=== PATIENT | female | born 1945 | race Caucasian/White ===

== ENCOUNTER 2022-01-04 08:02 | Emergency (ER) | payer MEDICARE, OTHER, SELFPAY ==
[2022-01-04 08:56] VITALS: BP 169/71; PULSE 72; RESP 18; TEMP 36.4; O2SAT 98; BMI 25.2
--- NOTE | 2022-01-04 09:06 | ED_ITS ---
HPI - Dizziness General Chief Complaint: Dizziness/Vertigo Stated Complaint: Dizziness Time Seen by Provider: 01/04/22 08:13 History of Present Illness HPI Narrative: This 76-year-old female woke this morning and rolled over in her bed and had sudden onset of vertigo symptoms. She had nausea with 1 episode of vomiting and subsequently felt sweaty. Since then her symptoms have improved significantly. She did not have any altered speech or unilateral weakness. She does not report a headache or hearing ch Related Data Home Medications Medication Instructions Recorded Confirmed amlodipine 2.5 mg tablet mg 01/04/22 famotidine 20 mg tablet mg 01/04/22 latanoprost 0.005 % eye drops drp 01/04/22 levothyroxine 100 mcg capsule 100 mcg PO DAILY 01/04/22 01/04/22 levothyroxine 88 mcg capsule 88 mcg PO .3 days a week 01/04/22 01/04/22 [id number] cap PO 01/04/22 36,000-114,000-180,000 unit capsule,delay rel (Creon) losartan 50 mg tablet mg 01/04/22 triamterene 37.5 cap 01/04/22 mg-hydrochlorothiazide 25 mg capsule Previous Rx's Medication Instructions Recorded meclizine 25 mg tablet 25 mg PO QID #20 tabs 01/04/22 ondansetron HCl 4 mg tablet 4 mg PO Q6H #20 tabs 01/04/22 Allergies Allergy/AdvReac Type Severity Reaction Status Date / Time Sulfa (Sulfonamide Allergy Verified 01/04/22 08:27 Antibiotics) Review of Systems Status of ROS: Reports: 10 or more systems reviewed and unremarkable except as noted in History and below Narrative: Constitutional: No fevers, no weight gain or loss. Eyes: No discharge. No vision changes. HENT: No congestion, no sore throat, no ear pain. Cardiovascular: No chest pain, no palpitations. Respiratory: No shortness of breath, no wheezes, no cough. Gastrointestinal: No abdominal pain, no diarrhea. Nausea with 1 episode of vomiting. Genitourinary: No dysuria, no hematuria. Musculoskeletal: Normal range of motion. Skin: No rashes, no pruritis. Neurological: No weakness, sensory change, speech change. Vertigo symptoms as described above. Endo/Heme/Allergies: No bruising or bleeding. No polydipsia. Pysch: no suicidality, no anxiety, no insomnia. All other systems reviewed and are negative. PFSH [facility] Social History Smoking Status: Never smoker How often do you have a drink containing alcohol: monthly or less AUDIT-C Alcohol total score: 1 Non-prescribed substance use: denies use Exam Narrative: Exam Narrative: Constitutional: Well-developed, well-nourished, no acute distress. HEENT: Normocephalic, atraumatic. Neck: Normal range of motion. Nontender. Supple. Heart: Regular. No murmurs. Normal rate. Intact distal pulses. Lungs: Clear to auscultation. No chest discomfort. No wheezes, rhonchi, or rales. Abdomen: Normal bowel sounds. Nontender. No rebound tenderness. Genitalia: Deferred. Back: No midline tenderness. Normal range of motion. Extremities: Normal range of motion. No injury. Skin: Intact. No rash. Warm. No erythema or pallor. Neurologic: No weakness. Alert and oriented. No facial asymmetry. Speech is normal. [id number] is normal. No pronator drift. Etl [employer] strength is equal bilaterally. Heel to fine is normal. No altered sensation. Psychiatric: No suicidality. No anxiety or depression. No insomnia. Nursing notes and vitals signs are reviewed. Const: Vital Signs, click to edit/add: Vital Signs - 24 hr 01/04/22 08:56 Temperature 97.5 F L Pulse Rate [Right Pulse Oximeter] 72 Respiratory Rate 18 Blood Pressure [Ri ght Upper Arm] 169/71 H Pulse Oximetry 98 Oxygen Delivery Me thod Room Air Course Vital Signs Vital signs: Initial Vital Signs Temperature 97.5 F L 01/04/22 08:56 Temperature Source Temporal Artery Scan 01/04/22 08:56 Pulse Rate 72 01/04/22 08:56 Respiratory Rate 18 01/04/22 08:56 Blood Pressure 169/71 H 01/04/22 08:56 Blood Pressure Mean 103 01/04/22 08:56 Blood Pressure Position Sitting 01/04/22 08:56 Pulse Oximetry 98 01/04/22 08:56 Oxygen Delivery Method 01/04/22 08:56 Vital Signs Temperature 97.5 F L 01/04/22 08:56 Pulse Rate 72 01/04/22 08:56 Respiratory Rate 18 01/04/22 08:56 Blood Pressure 169/71 H 01/04/22 08:56 Pulse Oximetry 98 01/04/22 08:56 Oxygen Delivery Method 01/04/22 08:56 Temperature 97.5 F L 01/04/22 08:56 Pulse Rate 72 01/04/22 08:56 Respiratory Rate 18 01/04/22 08:56 Blood Pressure 169/71 H 01/04/22 08:56 Pulse Oximetry 98 01/04/22 08:56 Oxygen Delivery Method 01/04/22 08:56 MDM - Dizziness MDM Narrative Medical decision making narrative: This patient comes in with rather sudden onset of vertigo symptoms upon awakening this morning. These symptoms have completely resolved when remaining still. Even when turning her head her moving at this time she has minimal symptoms. She is not showing any sign of neurologic deficit. Her neurologic exam is completely normal. This is much more likely to be peripheral vertigo rather than a central process. I did describe lab and imaging studies and in a process of shared decision making these were declined given her resolution of symptoms. The patient did receive an oral dose of Zofran and meclizine. She is okay to return home. Prescription for these medicines is provided for her to be used as needed and directed. Discharge Plan Discharge Clinical Impression: Acute vestibular neuronitis Patient Disposition: Home, Self-Care Condition: Improved Instructions: Vertigo (ED) Additional Instructions: Activity as tolerated. Use medications as needed and directed. Follow up with MD or return if worsening. Prescriptions: New ondansetron HCl 4 mg tablet 4 mg PO Q6H Qty: 20 0RF meclizine 25 mg tablet 25 mg PO QID Qty: 20 0RF No Action losartan 50 mg tablet latanoprost 0.005 % drops amlodipine 2.5 mg tablet triamterene-hydrochlorothiazid 37.5-25 mg capsule famotidine 20 mg tablet Creon 36,000-114,000- 180,000 unit capsule,delayed release(DR/EC) PO levothyroxine 88 mcg capsule 88 mcg PO .3 days a week levothyroxine 100 mcg capsule 100 mcg PO DAILY Follow Up/Referrals: Jone Calvert MD [Primary Care Provider] - Stand Alone [email or web address] Inst[facility]
[2022-01-04] MEDS: MECLIZINE HCL 25 MG TABLET PO (09:15)
[2022-01-04] MEDS: ONDANSETRON ODT 4 MG TAB PO (09:31)
[2022-01-04 09:43] VITALS: BP 144/63; PULSE 64; RESP 14; TEMP 36.4
[2022-01-04 09:55] VITALS: BP 144/63; PULSE 64; RESP 14; O2SAT 98
== END 2022-01-04 09:54 | disposition home or self-care (01) ==
PROVIDERS: Emergency Provider Emergency Medicine Emergency Medical Services; PCP Family Medicine
DX: H81.20 Vestibular neuronitis, unspecified ear (principal)
CPT/HCPCS: 99283; 99284; A9270

== ENCOUNTER 2023-01-13 21:29 | Emergency (ER) | payer MEDICARE, OTHER, SELFPAY ==
[2023-01-13 21:37] VITALS: BP 135/74; PULSE 62; RESP 18; TEMP 36.3; O2SAT 97
--- NOTE | 2023-01-13 22:06 | ED.NURSE ---
[employer] cleaning wound
[2023-01-13 23:26] VITALS: BP 125/74; PULSE 70; RESP 18; TEMP 36.9; O2SAT 97
[2023-01-13 23:49] VITALS: BP 125/74; PULSE 70; RESP 18; TEMP 36.9
--- NOTE | 2023-02-02 11:16 | ED.GENADULT ---
HPI - General Adult General Chief complaint: Animal Bite Stated complaint: cat bite Time Seen by Provider: 01/13/23 22:44 History of Present Illness HPI narrative: pt was cleaning cat. cat had stepped on a sticky mouse trap. cat is a house cat, 6 months old. cat is current on shots. Pt was bit on wrist while cleaning the cat. 77-year-old woman presenting to the emergency depart along with her spouse also sustained injury by kitten. Trying to extricate and clean this cat who is fully vaccinated, from a sticky mouse trap when it bit her left forearm wrist area. Is not complaining of significant pain. Related Data Home Medications Medication Instructions Recorded Confirmed amlodipine 2.5 mg tablet 2.5 mg PO DAILY 01/04/22 01/14/23 famotidine 20 mg tablet 20 mg PO BID 01/04/22 01/14/23 latanoprost 0.005 % eye drops 1 drp ophthalmic (eye) DAILY 01/04/22 01/14/23 levothyroxine 100 mcg capsule 100 mcg PO DAILY 01/04/22 01/14/23 onpbua-xqhyttwd-ltktydj 2 cap PO TID 01/04/22 01/14/23 36,000-114,000-180,000 unit capsule,delay rel (Creon) losartan 50 mg tablet 50 mg PO BID 01/04/22 01/14/23 triamterene 37.5 1 cap PO DAILY 01/04/22 01/14/23 mg-hydrochlorothiazide 25 mg capsule atorvastatin 20 mg tablet 20 mg PO DAILY 01/14/23 01/14/23 levothyroxine 88 mcg tablet 88 mcg PO 3XW 01/14/23 01/14/23 omeprazole 20 mg capsule,delayed 20 mg PO DAILY 01/14/23 01/14/23 release Previous Rx's Medication Instructions Recorded meclizine 25 mg tablet 25 mg PO QID #20 tabs 01/04/22 amoxicillin 875 mg-potassium 1 tab PO BID 9 days #18 tabs 01/13/23 clavulanate 125 mg tablet Allergies Allergy/AdvReac Type Severity Reaction Status Date / Time Sulfa (Sulfonamide Allergy Mild Hives Verified 01/14/23 06:41 Antibiotics) Review of Systems Status of ROS: Reports: 6 or more systems reviewed and unremarkable except as noted in History and below PFSH PFSH Social History Smoking Status: Never smoker Second hand tobacco smoke exposure: No How often do you have a drink containing alcohol: monthly or less AUDIT-C Alcohol total score: 1 Non-prescribed substance use: denies use Exam Narrative: Exam Narrative: Pleasant. NAD. Mildly anxious. Moving extremities without difficulty. Well-perfused. Examination of the left forearm shows a few bites limited to the left forearm and just proximal to the wrist on the dorsal lateral aspect. No active bleeding. No repair necessary. No marked swelling to suggest hematoma or other. Const: Documenting provider has reviewed patient's vital signs: yes Course Vital Signs Vital signs: Initial Vital Signs Temperature 97.3 F L 01/13/23 21:37 Temperature Source Temporal Artery Scan 01/13/23 21:37 Pulse Rate 62 01/13/23 21:37 Pulse Rhythm Regular 01/13/23 21:37 Respiratory Rate 18 01/13/23 21:37 Blood Pressure 135/74 01/13/23 21:37 Blood Pressure Mean 94 01/13/23 21:37 Blood Pressure Position Sitting 01/13/23 21:37 Pulse Oximetry 97 01/13/23 21:37 Oxygen Delivery Method Room Air 01/13/23 21:37 Vital Signs Temperature 97.3 F L 01/13/23 21:37 Pulse Rate 62 01/13/23 21:37 Respiratory Rate 18 01/13/23 21:37 Blood Pressure 135/74 01/13/23 21:37 Pulse Oximetry 97 01/13/23 21:37 Oxygen Delivery Method Room Air 01/13/23 21:37 Temperature 98.5 F 01/13/23 23:49 Pulse Rate 70 01/13/23 23:49 Respiratory Rate 18 01/13/23 23:49 Blood Pressure 125/74 01/13/23 23:49 Pulse Oximetry 97 01/13/23 23:26 Oxygen Delivery Method Room Air 01/13/23 23:26 Medical Decision Making MDM Narrative Medical decision making narrative: I think with careful monitoring would not necessarily need an antibiotic here. I would expect to be a little bit red over the next couple of days but if seems to be worsening beyond that might need intervention. kaden and Genie are up-to-date on immunizations. Discussed options in treatment. See patient discharge plan Discharge Plan Discharge Clinical Impression: Hematoma, Cat bite Patient Disposition: Home, Self-Care Condition: Stable Additional Instructions: Can continued ice for comfort. Elevate for comfort. Ibuprofen or acetaminophen. Watch for spreading redness after 2 days, marked increase in swelling/redness/heat/pain, purulent drainage as indication to initiate antibiotic. Prescriptions: New amoxicillin-pot clavulanate 875-125 mg tablet 1 tab PO BID 9 Days Qty: 18 0RF No Action losartan 50 mg tablet 50 mg PO BID latanoprost 0.005 % drops 1 drp ophthalmic (eye) DAILY amlodipine 2.5 mg tablet 2.5 mg PO DAILY triamterene-hydrochlorothiazid 37.5-25 mg capsule 1 cap PO DAILY famotidine 20 mg tablet 20 mg PO BID Creon 36,000-114,000- 180,000 unit capsule,delayed release(DR/EC) 2 cap PO TID levothyroxine 100 mcg capsule 100 mcg PO DAILY meclizine 25 mg tablet 25 mg PO QID Qty: 20 0RF atorvastatin 20 mg tablet 20 mg PO DAILY levothyroxine 88 mcg tablet 88 mcg PO 3XW omeprazole 20 mg capsule,delayed release(DR/EC) 20 mg PO DAILY Follow Up/Referrals: Jone Calvert MD [Primary Care Provider] - Stand Alone Forms: [employer] Info Instructions
== END 2023-01-13 23:50 | disposition home or self-care (01) ==
PROVIDERS: Emergency Provider Family Medicine; PCP Family Medicine
DX: S61.451A Open bite of right hand, initial encounter (principal); W55.01XA Bitten by cat, initial encounter
CPT/HCPCS: 90471; 99283; 99284

== ENCOUNTER 2023-01-14 06:29 | Emergency (ER) | payer MEDICARE, OTHER, SELFPAY ==
[2023-01-14 06:35] VITALS: BP 155/72; PULSE 67; RESP 18; TEMP 36.8; O2SAT 99; BMI 26.5
--- NOTE | 2023-01-14 06:35 | ED_ITS ---
HPI - Animal Bite General Time Seen by Provider: 06:35 Date Seen: 01/14/23 Chief Complaint: Animal Bite Stated Complaint: PT back, LT wrist swelling frm cat bite Time Seen by Provider: 01/14/23 06:35 Source: patient Mode of arrival: ambulatory Limitations: no limitations History of Present Illness HPI narrative: 77-year-old female who was seen yesterday after being bit by a cat returns today with redness at the site of the bite. She also feels like her hand is more achy. She was not started on antibiotics yesterday but was given a prescription to fill if she developed worsening symptoms. Related Data Home Medications Medication Instructions Recorded Confirmed amlodipine 2.5 mg tablet 2.5 mg PO DAILY 01/04/22 01/14/23 famotidine 20 mg tablet 20 mg PO BID 01/04/22 01/14/23 latanoprost 0.005 % eye drops 1 drp ophthalmic (eye) DAILY 01/04/22 01/14/23 levothyroxine 100 mcg capsule 100 mcg PO DAILY 01/04/22 01/14/23 [id number] 2 cap PO TID 01/04/22 01/14/23 36,000-114,000-180,000 unit capsule,delay rel (Creon) losartan 50 mg tablet 50 mg PO BID 01/04/22 01/14/23 triamterene 37.5 1 cap PO DAILY 01/04/22 01/14/23 mg-hydrochlorothiazide 25 mg capsule atorvastatin 20 mg tablet 20 mg PO DAILY 01/14/23 01/14/23 levothyroxine 88 mcg tablet 88 mcg PO 3XW 01/14/23 01/14/23 omeprazole 20 mg capsule,delayed 20 mg PO DAILY 01/14/23 01/14/23 release Previous Rx's Medication Instructions Recorded meclizine 25 mg tablet 25 mg PO QID #20 tabs 01/04/22 amoxicillin 875 mg-potassium 1 tab PO BID 9 days #18 tabs 01/13/23 clavulanate 125 mg tablet Allergies Allergy/AdvReac Type Severity Reaction Status Date / Time Sulfa (Sulfonamide Allergy Mild Hives Verified 01/14/23 06:41 Antibiotics) Review of Systems Status of ROS: Reports: 10 or more systems reviewed and unremarkable except as noted in History and below PFSH PFSH Social History Smoking Status: Never smoker How often do you have a drink containing alcohol: monthly or less AUDIT-C Alcohol total score: 1 Non-prescribed substance use: denies use Exam Narrative: Exam Narrative: General: well nourished , NAD Head: Atraumatic and normocephalic ENT: External ears and external nose are normal Eyes: Conjunctiva clear, pupils are equal reactive, external ocular motions are intact Neck: Full spontaneous range of motion of the neck Lungs: No respiratory distress Musculoskeletal: No tenderness or deformity, no joint effusion, no pain with passive movement of the wrist, no warmth or redness the rest. Just proximal to the wrist joint overlying the distal radius on the extensor surface of the f orearm and wrist there is a 2 cm area of erythema and induration Neurologic: No gross focal neurologic deficits Skin: No rashes Psych: Mood and affect are appropriate Const: Vital Signs, click to edit/add: Vital Signs - 24 hr 01/14/23 06:35 Temperature 98.2 F Pulse Rate [Right Pulse Oximeter] 67 Respiratory Rate 18 Blood Pressure [Ri ght Upper Arm] 155/72 H Pulse Oximetry 99 Oxygen Delivery Me thod Room Air Course Course Hospital Course: Patient seen and examined, prior records are reviewed. Patient presents today with redness and swelling at the site of the cat bite from last night. On exam, no joint effusion, no warmth redness of the joint or pain with passive movements to suggest septic arthritis. There is localized swelling and tenderness on the dorsum of the wrist around the bite, suspect this may be hematoma as patient says there was marked swelling just lateral to this last night, cannot exclude early cellulitis. Augmentin is started and patient is stable for discharge. Vital Signs Vital signs: Initial Vital Signs Temperature 98.2 F 01/14/23 06:35 Temperature Source Temporal Artery Scan 01/14/23 06:35 Pulse Rate 67 01/14/23 06:35 Respiratory Rate 18 01/14/23 06:35 Blood Pressure 155/72 H 01/14/23 06:35 Blood Pressure Mean 99 01/14/23 06:35 Blood Pressure Position Sitting 01/14/23 06:35 Pulse Oximetry 99 01/14/23 06:35 Oxygen Delivery Method Room Air 01/14/23 06:35 Vital Signs Temperature 98.2 F 01/14/23 06:35 Pulse Rate 67 01/14/23 06:35 Respiratory Rate 18 01/14/23 06:35 Blood Pressure 155/72 H 01/14/23 06:35 Pulse Oximetry 99 01/14/23 06:35 Oxygen Delivery Method Room Air 01/14/23 06:35 Temperature 98.2 F 01/14/23 06:35 Pulse Rate 67 01/14/23 06:35 Respiratory Rate 18 01/14/23 06:35 Blood Pressure 155/72 H 01/14/23 06:35 Pulse Oximetry 99 01/14/23 06:35 Oxygen Delivery Method Room Air 01/14/23 06:35 Discharge Plan Discharge Clinical Impression: Hematoma, Cat bite Patient Disposition: Home, Self-Care Condition: Stable Instructions: Animal Bite (ED) Additional Instructions: Elevate and ice to help with pain and swelling. Shan wrap to help with swelling. Tylenol and ibuprofen as needed, take Augmentin as prescribed today. Activity Level: Activity as Tolerated Discharge Diet: Regular Prescriptions: No Action losartan 50 mg tablet 50 mg PO BID latanoprost 0.005 % drops 1 drp ophthalmic (eye) DAILY amlodipine 2.5 mg tablet 2.5 mg PO DAILY triamterene-hydrochlorothiazid 37.5-25 mg capsule 1 cap PO DAILY famotidine 20 mg tablet 20 mg PO BID Creon 36,000-114,000- 180,000 unit capsule,delayed release(DR/EC) 2 cap PO TID levothyroxine 100 mcg capsule 100 mcg PO DAILY meclizine 25 mg tablet 25 mg PO QID Qty: 20 0RF atorvastatin 20 mg tablet 20 mg PO DAILY levothyroxine 88 mcg tablet 88 mcg PO 3XW omeprazole 20 mg capsule,delayed release(DR/EC) 20 mg PO DAILY amoxicillin-pot clavulanate 875-125 mg tablet 1 tab PO BID 9 Days Qty: 18 0RF Follow Up/Referrals: Jone Calvert MD [Primary Care Provider] - Stand Alone Forms: [facility] Info Instructions
[2023-01-14 06:48] VITALS: PULSE 74
--- OUTSIDE RECORDS SUMMARY | 2023-01-14 06:54 | XMS_ITS | Continuity of Care Document ---
Author Name Unknown Organization [facility] Address [address] [address] [place] [address] Phone Care Team Providers Care Gate Tender Name Role Phone Cedrick Seaman MD Unavailable Unavailable Allergies, Adverse Reactions, Alerts Substance Reaction Status Criticality Sulfa (Sulfonamide Antibiotics) Hives Active No Information Medications Medication Instructions Dosage Effective Dates (start - stop) Status Comments Creon 36,000 unit-114,000 unit-180,000 unit capsule,delayed release take 2 capsule by oral route 3 times every day with meals swallowing whole. Do not crush, chew and/or divide. for Diarrhea 2 capsule - Active 90 day supply per pt's request Vitamin D3 125 mcg (5,000 unit) tablet take 1 Tablet by Oral route once 1 Tablet Feb- - Active Effer-K 20 mEq effervescent tablet take 1 tablet by oral route every day dissolved in 3-4 ounces of cold juice or ice water and then drink 20 MEQ Feb- - Active famotidine 20 mg tablet take 1 tablet by ORAL route 2 times every day 20 MG Feb- - Active amlodipine 2.5 mg tablet take 1 tablet by oral route every day 2.5 MG Feb- - Active vitamin E 200 unit capsule - Active Fish Oil 1,000 mg (120 mg-180 mg) capsule take 1 Capsule by Oral route once 1 Capsule Feb- - Active Probiotic 10 billion cell capsule take 1 Capsule by Oral route every day 1 Capsule - Active cranberry 400 mg capsule - Active zinc 50 mg tablet take 1 by oral route every day - Active ferrous sulfate 325 mg (65 mg iron) tablet,delayed release take 1 tablet by oral route every 2 days 1 tablet - Active Xifaxan 550 mg tablet take 1 tablet by oral route 3 times every day 550 MG - Active MSM 1,000 mg capsule take 1 by Oral route 2 times every day 1 - Active Metamucil 0.52 gram capsule take 5 Tablet by Oral route every day 5 Tablet - Active potassium chloride ER 20 mEq tablet,extended release(part/cryst) take 1 tablet (20MEQ) by oral route every day 20 MEQ - Active latanoprost 0.005 % Eye Drops instill 1 drop by ophthalmic route every day into affected eye(s) in the evening 1.00 drop - Active multivitamin tablet take 1 tablet by oral route every day with food - Active magnesium 200 mg tablet take 2 Tablet by Oral route 2 times every day 2 Tablet - Active Dyazide 37.5 mg-25 mg Cap take one tablet po qday. - Active Estrace 0.5 mg tablet take 1 tablet by oral route every day days 1-21 0.5 MG - Active Synthroid 100 mcg tablet take 1 tablet (100MCG) by oral route every day 100 MCG - Active losartan 100 mg tablet take 1 tablet (100MG) by oral route every day 100 MG - Active ascorbic acid 1,000 mg Tab Take one tablet by mouth daily - Active Procedures Procedure Date Colorectal Ca Screen Hi Risk I Offic/outpt E&m Estab Mod-hi 2 21 Telephone E&M III 21-30 Min MD ROSA Telephone E&M II 11-20 Min MD ROSA Telephone E&M II 11-20 Min MD ROSA Offic/outpt E&m Estab Low-mod 8 Ugi Endo; W/bx 1/mx Ugi Endo; W/endo Ultrasound Ex 18 Colonoscopy Flex; W/bx 1/mx Offic/outpt E&m Estab Mod-hi 2 18 Colorectal Ca Screen Hi Risk I 17 Offic/outpt E&m Estab Mod-hi 2 17 Offic/outpt E&m Estab Mod-hi 2 16 Offic/outpt E&m Estab Minor Offic/outpt E&m Estab Mod-hi 2 13 Ugi Endo; W/bx 1/mx Level Iv-surg Path Gross/micro 13 Offic/outpt E&m Estab Mod-hi 2 13 Colonoscopy Flex; Dx (jan Pro) 12 Offic/outpt E&m Estab Low-mod 2 Routine Serum Collection [id number] Lipase Offic/outpt E&m Estab Low-mod 1 Routine Serum Collection [id number] Offic/outpt E&m Estab Low-mod 0 [id number] Ugi Endo; W/endo Untrasound Ex 10 Offic/outpt E&m Estab Mod-hi 2 10 [id number] Ugi Endo; W/us Guid Asp/bx Offic/outpt E&m Estab Mod-hi 2 09 Ugi Endo; W/us Guid Asp/bx Offic Cons New/estab Mod 40 Mi 08 Routine Serum Collection [id number] Advance Directives Directive Yes / No Effective Date File Name No Information Encounters Encounter Description Practice Location Reason(s) For Visit Diagnoses Date Provider Providers Copied on Encounter [facility] [address] [address], [place], [id number], [place] tel:[phone] [facility] No Information 3 Urszula Philip. [address] [facility], [address], [id number], [place]. tel:[phone] [facility], [address] [address], [place], [address], [place] tel:[phone] [facility] Family history of pancreatic cancer 2 Urszula Philip. [address], [id number], [place]. tel:[phone] Jelani Peace MD. tel:[phone] [facility], [address] [address], [place], [id number], [place] tel:[phone] [facility] GI Symptoms or Concerns (chief complaint) Hemorrhoids, internalFamil y history of colon cancerDiverti culosis of colonHemorrho ids, internalEncou nter for screening for malignant neoplasm of colonFamily history of malignant neoplasm of digestive organs 2 Min MD Burgess. [address], [id number], [place]. tel:[phone] Jelani Peace MD. tel:[phone] erring Provider: Referral Self. [facility], [address] [address], [place], [id number], [place] tel:[phone] [facility] No Information 2 Yobani Nguyễn. [address], [id number], [place]. tel:[phone] [facility], [address] [address], [place], [id number], [place] tel:[phone] [facility] No Information 2 Urszula Philip. [address] [facility], [address], [id number], [place]. tel:[phone] Referring Provider: Referral Self. Offic/outpt E&m Estab Mod-hi 2 [facility], [address] [address], [place], [address], [place] tel:[phone] [facility] GI Symptoms or Concerns (chief complaint) Family history of pancreatic cancerDietary counseling and surveillanceE levated blood-pressur e reading, w/o diagnosis of htn 1 Urszula Philip. [address] [facility], [facility] [address], [place], [place], [address], [place]. tel:[phone] Jelani Peace MD. tel:[phone] erring Provider: Referral Self. [facility], [address] [address], [place], [address], [place] tel:[phone] [facility] No Information 1 Yobani Nguyễn. [address] [facility], [facility] [address], [place], [address], [place]. tel:[phone] [facility], [address] [address], [place], [address], [place] tel:[phone] [facility] Pancreatic abnormality 1 Yobani Nguyễn. [address] [facility], [facility] [address], [place], [place], [address], [place]. tel:[phone] Telephone E&M III 21-30 Min ROSA [facility], [address] [address], [place], [address], [place] tel:[phone] [facility] GI Symptoms or Concerns (chief complaint) Flatulence, eructation and gas painGas painEructatio n 0 Yobani Nguyễn. [address] [facility], [facility] [address], [place], [address], [place]. tel:[phone] Jelani Peace MD. tel:[phone] erring Provider: Gamaliel Sullivan MD, [address] [place], [address]. tel:[phone] Telephone E&M II 11-20 Min ROSA [facility], [address] [address], [place], [address], [place] tel:[phone] [facility] GI Symptoms or Concerns (chief complaint) Chronic diarrhea 0 Yobani Nguyễn. [address] [facility], [facility] [address], [place], [address], [place]. tel:[phone] Jelani Peace MD. [phone] erring Provider: Referral Self. Telephone E&M II 11-20 Min MD ROSA [facility], [address] [address], [place], [id number], [place] tel:[phone] [facility] GI Symptoms or Concerns (chief complaint) Pancreatic atrophyChroni c diarrheaIrrit able bowel syndrome with diarrhea 0 Yobani Nguyễn. [address] [facility], [address], [id number], [place]. [phone] Jelani Peace MD. tel:[phone] erring Provider: Referral Self. [facility], [address] [address], [place], [address], [place] tel:[phone] [facility] No Information 0 Bebeto Cuba. [address] [facility], [facility] [address], [place], [place], [address], [place]. tel:[phone] Offic/outpt E&m Estab Low-mod [facility], [address] [address], [place], [address], [place] tel:[phone] [facility] No Information 8 Urszula Philip. [address] [facility], [facility] [address], [place], [place], [address], [place]. tel:[phone] Referring Provider: Cedrick Seaman MD, [address] [facility] [address], [place], [address] . tel:[phone] [facility], [address] [address], [place], [address], [place] tel:[phone] [facility] No Information 8 Urszula Philip. [address] [facility], [facility] [address], [place], [place], [address], [place]. tel:[phone] Referring Provider: Cedrick Seaman MD, [address] [place] [address] [address], [place], [address] . tel:[phone] Offic/outpt E&m Estab Mod-hi 2 [facility], [address] [address], [place], [place], [address], [place] tel:[phone] [facility] No Information 8 Urszula Philip. [address] [place] [address], [facility] [address], [place], [place], [address], [place]. tel:[phone] Referring Provider: Cedrick Seaman MD, [address] [facility] [address], [place], [address] . tel:[phone] [facility], [address] [address], [place], [place], [address], [place] tel:[phone] [facility] Disease of pancreasDiarr hea, unspecified type 8 Urszula Philip. [address] [facility], [facility] [address], [place], [place], [address], [place]. tel:[phone] Jelani Peace MD. tel:[phone] [facility] [place], [address] [address], [place], [place], [address], [place] tel:[phone] [facility] Colon cancer screeningFami ly history of colon cancerDiverti culosis of colon without diverticuliti sPersonal history of colonic polypsEncount er for screening for malignant neoplasm of colonDvrtclos of lg int w/o perforation or abscess w/o bleedingFamil y history of malignant neoplasm of digestive organs 7 Mick Alston. [address] [facility], [facility] [address], [place], [place], [address], [place]. tel:[phone] Referring Provider: Jelani Peace MD D, [address], [place], [address]. tel:[phone] [facility], [address] [address], [place], [address], [place] tel:[phone] [facility] Pancreatic abnormality 7 Urszula Philip. [address] [facility], [facility] [address], [place], [place], [address], [place]. tel:[phone] Jelani Peace MD. tel:[phone] [facility], [address] [address], [place], [address], [place] tel:[phone] [facility] Pancreatic lesion Urszula Philip. [address] [place] [address], [id number], [place]. tel:[phone] Jelani Peace MD. tel:[phone] Offic/outpt E&m Estab Mod-hi 2 [facility], [address] [address], [place], [address], [place] tel:[phone] [facility] No Information Urszula Philip. [facility], [facility] [address], [place], [place], [address], [place]. tel:[phone] Referring Provider: Jelani Peace MD D, [address] [facility] [address], [place], [address]. tel:[phone] Offic/outpt E&m Estab Mod-hi 2 [facility], [address] [address], [place], [address], [place] tel:[phone] [facility] GI Symptoms or Concerns (chief complaint) Pancreatic atrophyDiarrh ea, unspecified typePersonal history of colonic polypsDietary counseling and surveillance 6 OMorsulemae YOUSIF Lisa. [facility]1 [facility], [facility] [address], [place], [address], [place]. tel:[phone] Jelani Peace MD. tel:[phone] erring Provider: Referral Self. [facility], [address] [address], [place], [id number], [place] tel:[phone] [facility] Abn X-ray GI Tract 5 [employer] RN TRAUMA Martha. [address] [place] [address], [address], [address], [place]. tel:[phone] Offic/outpt E&m Estab Minor [facility], [address] [address], [place], [address], [place] tel:[phone] [facility] Nausea AloneNausea AloneEpigastr ic Pain 4 [employer] RN TRAUMA Martha. [address] [place] [address], [place] [address], [place], [place], [address], [place]. tel:[phone] Referring Provider: Jelani Perdomo, [address], [facility]. tel:[phone] Offic/outpt E&m Estab Mod-hi 2 [facility], [address] [address], [place], [address], [place] tel:[phone] [facility] Nausea Alone 3 Lauren Villela. [address] [place] [address], [address], [address], [place]. tel:[phone] Referring Provider: Referral Self. [facility], [address] [address], [place], [id number], [place] tel:[phone] [facility] Polyp-intes/r ect/stom-unc BehGastric Polyp-benignG astric Polyp-benignE pigastric Pain 3 Michaelle Villela. [address] [place] [address], [place] [address], [place], [place], [address], [place]. tel:[phone] Referring Provider: Jelani Perdomo, [address] [facility] [address] [place], [address]. tel:[phone] Offic/outpt E&m Estab Mod-hi 2 [facility], [address] [address], [place], [address], [place] tel:[phone] [facility] Patient feels she has an ulcer due to previou (chief complaint) Epigastric PainNausea Alone 3 Crystal Palomares. [address] [facility] [address], [place], [address], [place]. tel:[phone] Referring Provider: Referral Self. [facility], [address] [address], [place], [address], [place] tel:[phone] [facility] Diverticulosi s Of ColonColon Cancer ScreeningFami ly Hx GI Tract CancerColon Cancer ScreeningDive rticulosis Of ColonPersonal History Colon PolypsFamily Hx GI Tract Cancer 2 Rica Mustafa. [address] [facility] [address], [place], [address], [place]. tel:[phone] Offic/outpt E&m Estab Low-mod [facility], [address] [address], [place], [address], [place] tel:[phone] [facility] Anemia (chief complaint)Pa ncreatic pseudocyst (chief complaint)Di scuss colonoscopy (chief complaint) Pancreat Cyst/pseudocy stPersonal History Colon Polyps 2 No Information Offic/outpt E&m Estab Low-mod [facility], [address] [address], [place], [address], [place] tel:[phone] [facility] Pancreas lesion (chief complaint) Pancreat Cyst/pseudocy st 1 No Information Offic/outpt E&m Estab Low-mod [facility], [address] [address], [place], [address], [place] tel:[phone] [facility] Pancreas lesion (chief complaint) Pancreat Cyst/pseudocy st 0 No Information Referring Provider: Referral Self. [facility], [address] [address], [place], [address], [place] tel:[phone] [facility] No Information 0 Urszula Philip. [address] [facility], [facility] [address], [place], [place], [address], [place]. tel:[phone] Offic/outpt E&m Estab Mod-hi 2 [facility], [address] [address], [place], [address], [place] tel:[phone] [facility] Diarrhea (chief complaint) Pancreat Cyst/pseudocy st 0 No Information [facility], [address] [address], [place], [address], [place] tel:[phone] [facility] No Information 9 Urszula Philip. [address] [facility], [facility] [address], [place], [place], [address], [place]. tel:[phone] Offic/outpt E&m Estab Mod-hi 2 [facility], [address] [address], [place], [address], [place] tel:[phone] [facility] No Information 9 Urszula Philip. [address] [facility], [facility] [address], [place], [place], [address], [place]. tel:[phone] [facility], [address] [address], [place], [address], [place] tel:[phone] [facility] No Information 9 Urszula Philip. [address] [facility], [facility] [address], [place], [place], [address], [place]. tel:[phone] Referring Provider: Cedrick Seaman MD, [address] [facility] [address], [place], [address] . tel:[phone] Offic Cons New/estab Mod 40 Mi [facility], [address] [address], [place], [address], [place] tel:[phone] [facility] Abn X-ray GI Tract Dec- 0-200 8 No Information Family History Family Member Type Diagnosis Age At Onset Brother Problem (finding) Diverticular disease Father Problem (finding) Melanoma Sister Problem (finding) Asthma Father Problem (finding) Cancer, throat Father Problem (finding) Asthma Brother Problem (finding) cancer of colon Brother Problem (finding) prostate cancer Father Problem (finding) Cancer, colon Sister Problem (finding) Thyroid disorder Sister Problem (finding) Peptic ulcer disease Father Problem (finding) Cancer, thyroid Brother Problem (finding) malignant neoplasm of p ancreas Sister Problem (finding) Cancer, pancreatic Brother Problem (finding) GERD Brother Problem (finding) Cancer, thyroid Sister Problem (finding) cancer of colon Brother Problem (finding) Cancer, throat Sister Problem (finding) Cancer, pancreatic Son Problem (finding) Alive and well Father Problem (finding) Cancer, prostate Father Problem (finding) Cancer, pancreatic Father Problem (finding) GERD Immunizations Vaccine Date Status Comments influenza, high-dose seasona l, quadrivalent, .7mL dose, preservative free administered Note: [facility] bi-direct ional interface ; Source: Other Registry SARS-COV-2 (COVID-19) vaccin e, mRNA, spike protein, LNP, bivalent booster, preservative free, 30 mcg/0.3 mL dose, sean-sucrose formulation administered Note: [facility] bi-d irectional interface ; Source: Other Registry SARS-COV-2 (COVID-19) vaccin e, mRNA, spike protein, LNP, preservative free, 30 mcg/0.3mL dose, sean-sucrose formulation administered Note: [facility] C bi- directional interface ; Source: Other Registry tetanus toxoid, reduced diphtheria toxoid, and acellular pertussis vaccine, adsorbed administered Note: [facility] b i-directional interface ; Source: Other Registry SARS-COV-2 (COVID-19) vaccin e, mRNA, spike protein, LNP, preservative free, 30 mcg/0.3mL dose administered Note: [facility] bi-direct ional interface ; Source: Other Registry influenza, high-dose seasona l, quadrivalent, .7mL dose, preservative free administered Note: [facility] bi-direct ional interface ; Source: Other Registry SARS-COV-2 (COVID-19) vaccin e, mRNA, spike protein, LNP, preservative free, 30 mcg/0.3mL dose administered Note: [facility] bi-direct ional interface ; Source: Other Registry SARS-COV-2 (COVID-19) vaccin e, mRNA, spike protein, LNP, preservative free, 30 mcg/0.3mL dose administered Note: [facility] bi-direct ional interface ; Source: Other Registry zoster vaccine recombinant administered N ote: [facility] bi-directional interface ; Source: Other Registry zoster vaccine recombinant administered N ote: [facility] bi-directional interface ; Source: Other Registry influenza, high dose seasona l, preservative-free administered Note: [facility] bi-direct ional interface ; Source: Other Registry influenza, high dose seasona l, preservative-free administered Note: [facility] bi-direct ional interface ; Source: Other Registry influenza virus vaccine, unspecified formulation administered Note: [facility] bi-di rectional interface ; Source: Other Registry influenza, high dose seasona l, preservative-free administered Note: [facility] bi-direct ional interface ; Source: Other Registry Prevnar 13 administered Note: [facility] bi-d irectional interface ; Source: Other Registry influenza, high dose seasona l, preservative-free administered Note: [facility] bi-direct ional interface ; Source: Other Registry Influenza, injectable, quadrivalent, preservative free, 3 yrs or older administered Source: Other Provid er influenza, high dose seasona l, preservative-free administered Note: [facility] bi-direct ional interface ; Source: Other Registry influenza, high dose seasona l, preservative-free administered Note: [facility] bi-direct ional interface ; Source: Other Registry tetanus toxoid, reduced diphtheria toxoid, and acellular pertussis vaccine, adsorbed administered Note: [facility] b i-directional interface ; Source: Other Registry Influenza, seasonal, injectable administe red Note: [facility] bi- directional interface ; Source: Other Registry Pneumovax 23 administered Note: [facility] bi-d irectional interface ; Source: Other Registry Influenza, seasonal, injectable administe red Note: [facility] bi- directional interface ; Source: Other Registry Novel [id number], all formulations administered Note: [facility] bi-direct ional interface ; Source: Other Registry zoster vaccine, live administered Note: [facility] bi-directional interface ; Source: Other Registry zoster vaccine, live administered Note: [facility] bi-directional interface ; Source: Other Registry tetanus and diphtheria toxoi ds, adsorbed, preservative free, for adult use (5 Lf of tetanus toxoid and 2 Lf of diphtheria toxoid) administered Note: [facility] bi-direct ional interface ; Source: Other Registry Influenza, seasonal, injectable administe red Note: [facility] bi- directional interface ; Source: Other Registry tetanus and diphtheria toxoi ds, adsorbed, preservative free, for adult use (2 Lf of tetanus toxoid and 2 Lf of diphtheria toxoid) administered Note: [facility] bi-direct ional interface ; Source: Other Registry influenza virus vaccine, unspecified formulation administered Note: [facility] bi-di rectional interface ; Source: Other Registry Payers Payer name Insurance type Covered green party ID Authorsarmada titapan(s) Medicare NGS MB [id number] [facility] [id number] Social History Type Description Quantity Date Captured Comments Alcohol Use Details Unknown Caffeine Use Details Unknown Tobacco Use Status No Information Smoking Status No Information Sex Female Chief Complaint And Reason For Visit No Information Reason For Referral Reason For Referral No Information Plan Of Treatment Date Type Action Status Goal Lifestyle education regardin g diet completed Goal Lifestyle education regardin g diet completed Goal Lifestyle education regardin g diet completed Referral Ordered: MRI Pancreas WITHOUT Contrast Appointment date/timeframe: -today ordered Referral Ordered: EUS Appointment date/timeframe: 01/18/2018 ordered Referral Ordered: referred to [facility] Genetic consult ordered History Of Present Illness Encounter Date Complaint History Of Prese nt Illness GI Symptoms or Concerns GI Symptoms or Concerns Genie baker s a very pleasant 75-year-old woman with a history of 2 first-degree relatives with pancreas cancer in their 50s. 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 Fortunately she has never had any symptomatology or problems related to her pancreas. She does have diarrhea that she claims has responded to Creon and for this she has been on for a few years. She is doing okay now with no weight loss no abdominal pain. GI Symptoms or Concerns Genie baker s a pleasant 74-year-old female, established patient, who I am seeing via telehealth visit in followup for her chronic diarrhea. 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 She has previously responded to a course of rifaximin for empiric treatment of potential small-intestine bacterial overgrowth. She has a history of thyroid disease and recently had her T3 replacement reduced by the prescriber. She has previously had a pelvic surgery which was not effective at alleviating her fecal incontinence. Symptoms were not alleviated with biofeedback. A colonoscopy in January 2018 was unremarkable including random colon biopsies and evaluation of the terminal ileum. She had normal duodenal biopsies on an EGD in January 2018. She takes Creon regularly. An endoscopic ultrasound in January 2018 was notable for a normal-appearing pancreas itself. MRI of the pancreas on November 21, 2018, showed no definable focal pancreatic lesion at the head or uncin GI Symptoms or Concerns Genie baker s a pleasant 74-year-old female, established patient, who I am seeing via telehealth visit in followup for chronic diarrhea. She does have a history of pancreas agenesis and is on Creon supplementation. I saw Genie in followup August 2019, at which time we began a 2-week course of rifaximin and resumed Metamucil. These measures were taken given chronic ongoing diarrhea with abdominal bloating and gas. She states that within 24 to 48 hours of beginning rifaximin, her symptoms completely resolved. She was in her normal state of health up until roughly 1 or 2 weeks ago, at which time symptoms began to return. A course of rifaximin was begun again 10 days ago, and she has had resolution of her symptoms. 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 She has a family history of pancreatic cancer in 2 siblings. She underwent endoscopic ultrasound January 2018 with pancreas looking fine itself. MRI of t GI Symptoms or Concerns Genie baker s a pleasant 74-year-old female, established patient, who I am seeing via [facility]yard [facility] in followup for her chronic diarrhea. She consented to today's visit. Total time for medical discussion and decision making was 25 minutes. 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 She has a family history of pancreatic cancer in 2 siblings. She did undergo endoscopic ultrasound in January 2018 with pancreas looking fine itself. MRI of the pancreas on November 21, 2018 showed no definable focal pancreatic lesion at the head or uncinate process; though again there was demonstration of atrophy or agenesis of the pancreatic body and tail, this exam was stable. She has had ongoing diarrhea over the last decade, quite severe at times and associated with fecal incontinence. She did have evaluation at the pelvic floor surgery and had surgery, which was not effective at alleviating her sympt GI Symptoms or Concerns Genie Tsai ehmkuhl is a 70-year-old female with a complex medical history including pancreatic atrophy, personal history of colon polyps, chronic diarrhea, as well as family history of both pancreatic cancer and colon cancer, who presents today for followup regarding intermittent loose stool.The patient's cites intermittent loose stool estimated three to four times a week. She cites that this has been going on for at least two to three years. She has eliminated dairy products from her diet. She has also tried taking gluten. These have not significantly helped. She cites that adding a fiber supplement is the most beneficial. When on fiber, she can have one bowel movement per day that is actually semi-formed. She has had previous upper endoscopy, last in 2012. Duodenal biopsies were negative for evidence of celiac disease. She does not have any black or bloody stool. She is mentioning increasing gas as well. She cites some intermittent incontinence as well. The patient does padilla Functional Status Date Functional Assessmen t No Information Instructions Date Instruction Additional Infor zoran Diverticulosis/Diverticulitis Re lated to Diverticulosis of colon Hemorrhoids Related to Diver ticulosis of colon High Fiber Diet Related to Diver ticulosis of colon Will proceed with jorge barros MRIs for pancreas cancer screening. I would like her to stay on the Creon. She asked good questions and has a good understanding of issues at hand. Related to Family history of pancreatic cancer Lifestyle education regarding di et Related to Dietary counseling and surveillance 1. Complete 2 week c ourse of xifaxin for bacterial overgrowth2. May try phazyme prn for gas/bloat3. Consider 2 week trial of IBGard (peppermint oil) if symptoms return4. continue creon supplementation5. Continue Metamucil supplementation6. MR pancreas November. Follow-up in 3 months Related to Flatulence, eructation and gas pain 1. Complete 2 week c ourse of rifaxamin2. Recommend a low carbohydrate diet3. Continue metamucil supplementation4. MR pancreas in November. Continue Creon supplementation Related to Chronic diarrhea 1. Continue Creon ricci pplementation2. Repeat MR Pancreas yearly3. Resume metamucil and slowly increase as tolerated4. Begin rifaximin 550 mg three times daily for 2 weeks5. Please call and update on symptoms in 4 weeks. If symptoms continue, will plan glucose breath test at that time6. Follow-up in 2 months Related to Pancreatic atrophy Diverticulosis/Diverticulitis Re lated to Family history of colon cancer High Fiber Diet Related to Famil y history of colon cancer High Fiber Diet Related to Perso nal history of colonic polyps FODMAPS Related to Perso nal history of colonic polyps Constipation colon cleanse Relat ed to Personal history of colonic polyps Lifestyle education regarding di et Related to Dietary counseling and surveillance Lifestyle education regarding di et Related to Dietary counseling and surveillance Assessments Type Assessment Date No Information Patient Care Teams Name Effective Dates (start - stop) Status Members No Information
--- OUTSIDE RECORDS SUMMARY | 2023-01-14 06:54 | XMS_ITS | Continuity of Care Document ---
Author Name Unknown Organization [facility] Address [address] [address] [place] [address] Phone Care Team Providers [facility] Name Role Phone Cedrick Seaman MD Unavailable [...] Encounter [facility] ESTRE[address]ITA [address] [address], [place], [id number], [place] tel:[phone] [facility] No Information [address] [facility], [address], [id number], [place]. tel:[phone] [facility], [address] [address], [place], [id number], [place] tel:[phone] [facility] Family history of pancreatic cancer 2 Urszula Philip. [address], [id number], [place]. tel:[phone] Jelani Peace MD. tel:[phone] [facility], [address] [address], [place], [id number], [place] tel:[phone] [facility] GI Symptoms or Concerns (chief complaint) Hemorrhoids, internalFamil y history of colon cancerDiverti culosis of colonHemorrho ids, internalEncou nter for screening for malignant neoplasm of colonFamily history of malignant neoplasm of digestive organs 2 Min MD Burgess. [address], [id number], [place]. tel:[phone] Jelani Peace MD. tel:[phone] erring Provider: Referral Self. [facility], [address] [address], [place], [id number], [place] tel:[phone] [facility] No Information 2 Yobani Nguyễn. [address], [id number], [place]. tel:[phone] [facility], [address] [address], [place], [id number], [place] tel:[phone] [facility] No Information [address] [facility], [address], [id number], [place]. tel:[phone] Referring Provider: Referral Self. Offic/outpt E&m Estab Mod-hi 2 [facility], [address] [address], [place], [address], [place] tel:[phone] [facility] GI Symptoms or Concerns (chief complaint) Family history of pancreatic cancerDietary counseling and surveillanceE levated blood-pressur e reading, w/o diagnosis of htn [address] [facility], [facility] [address], [place], [place], [address], [place]. tel:[phone] Jelani Peace MD. tel:[phone] erring Provider: Referral Self. [facility], [address] [address], [place], [place], [address], [place] tel:[phone] [facility] No Information 1 Yobani Nguyễn. [address] [facility], [facility] [address], [place], [address], [place]. tel:[phone] [facility], [address] [address], [place], [address], [place] tel:[phone] [facility] Pancreatic abnormality 1 Yobani Nguyễn. [address] [facility], [facility] [address], [place], [place], [address], [place]. tel:[phone] Telephone E&M III 21-30 Min ROSA [facility], [address] [address], [place], [place], [address], [place] tel:[phone] [facility] GI Symptoms or Concerns (chief complaint) Flatulence, eructation and gas painGas painEructatio n 0 Yobani Nguyễn. [address] [facility], [facility] [address], [place], [address], [place]. tel:[phone] Jelani Peace MD. tel:[phone] erring Provider: Gamaliel Sullivan MD, [address] [place], [address]. tel:[phone] Telephone E&M II 11-20 Min ROSA [facility], [address] [address], [place], [address], [place] tel:[phone] [facility] GI Symptoms or Concerns (chief complaint) Chronic diarrhea 0 Yobani Nguyễn. [address] [facility], [facility] [address], [place], [address], [place]. tel:[phone] Jelani Peace MD. [phone] erring Provider: Referral Self. Telephone E&M II 11-20 Min MD ROSA [facility], [address] [address], [place], [address], [place] tel:[phone] [facility] GI Symptoms or Concerns (chief complaint) Pancreatic atrophyChroni c diarrheaIrrit able bowel syndrome with diarrhea 0 Yobani Nguyễn. [address] [facility], [address], [id number], [place]. [phone] Jelani Peace MD. tel:[phone] erring Provider: Referral Self. [facility], [address] [address], [place], [id number], [place] tel:[phone] [facility] No Information [address] [facility], [facility] [address], [place], [place], [address], [place]. tel:[phone] Offic/outpt E&m Estab Low-mod [facility], [address] [address], [place], [address], [place] tel:[phone] [facility] No Information [address] [facility], [facility] [address], [place], [place], [address], [place]. tel:[phone] Referring Provider: Cedrick Seaman MD, [address] [facility] [address], [place], [address] . tel:[phone] [facility], [address] [address], [place], [place], [address], [place] tel:[phone] [facility] No Information [address] [facility], [facility] [address], [place], [place], [address], [place]. tel:[phone] Referring Provider: Cedrick Seaman MD, [address] [place] [address] [address], [place], [address] . tel:[phone] Offic/outpt E&m Estab Mod-hi 2 [facility], [address] [address], [place], [place], [address], [place] tel:[phone] [facility] No Information 8 Urszula Philip. [address] [place] [address], [facility] [address], [place], [place], [address], [place]. tel:[phone] Referring Provider: Cedrick Seaman MD, [address] [facility] [address], [place], [address] . tel:[phone] [facility], [address] [address], [place], [place], [address], [place] tel:[phone] [facility] Disease of pancreasDiarr hea, unspecified type [address] [facility], [facility] [address], [place], [place], [address], [place]. tel:[phone] Jelani Peace MD. tel:[phone] [facility] [place], [address] [address], [place], [place], [address], [place] tel:[phone] [facility] Colon cancer screeningFami ly history of colon cancerDiverti culosis of colon without diverticuliti sPersonal history of colonic polypsEncount er for screening for malignant neoplasm of colonDvrtclos of lg int w/o perforation or abscess w/o bleedingFamil y history of malignant neoplasm of digestive organs [address] [facility], [facility] [address], [place], [place], [address], [place]. tel:[phone] Referring Provider: Jelani Peace MD D, [address], [place], [address]. tel:[phone] [facility], [address] [address], [place], [address], [place] tel:[phone] [facility] Pancreatic abnormality [address] [facility], [facility] [address], [place], [place], [address], [place]. tel:[phone] Jelani Peace MD. tel:[phone] [facility], [address] [address], [place], [address], [place] tel:[phone] [facility] Pancreatic lesion Urszula Philip. [address] [place] [address], [id number], [place]. tel:[phone] Jelani Peace MD. tel:[phone] Offic/outpt E&m Estab Mod-hi 2 [facility], [address] [address], [place], [address], [place] tel:[phone] [facility] No Information Urszula Philip. [facility] [place], [facility] [address], [place], [place], [address], [place]. tel:[phone] Referring Provider: Jelani Peace MD D, [address] [facility] [address], [place], [address]. tel:[phone] Offic/outpt E&m Estab Mod-hi 2 [facility], [address] [address], [place], [address], [place] tel:[phone] [facility] GI Symptoms or Concerns (chief complaint) Pancreatic atrophyDiarrh ea, unspecified typePersonal history of colonic polypsDietary counseling and surveillance 6 OMorsulemae YOUSIF Lisa. [facility] [place], [facility] [address], [place], [address], [place]. tel:[phone] Jelani Peace MD. tel:[phone] erring Provider: Referral Self. [facility], [address] [address], [place], [address], [place] tel:[phone] [facility] Abn X-ray GI Tract 5 [place] SERVICE ADVISOR Martha. [address] [place] [address], [address], [id number], [place]. tel:[phone] Offic/outpt E&m Estab Minor [facility], [address] [address], [place], [id number], [place] tel:[phone] [facility] Nausea AloneNausea AloneEpigastr ic Pain 4 [place] SERVICE ADVISOR Martha. [address] [place] [address], [place] [address], [place], [place], [address], [place]. tel:[phone] Referring Provider: Jelani Perdomo, [address], [facility]. tel:[phone] Offic/outpt E&m Estab Mod-hi 2 [facility], [address] [address], [place], [address], [place] tel:[phone] [facility] Nausea Alone 3 Lauren Villela. [address] [place] [address], [address], [id number], [place]. tel:[phone] Referring Provider: Referral Self. [facility], [address] [address], [place], [address], [place] tel:[phone] [facility] Polyp-intes/r ect/stom-unc BehGastric Polyp-benignG astric Polyp-benignE pigastric Pain 3 Michaelle Villela. [address] [place] [address], [place] [address], [place], [place], [address], [place]. tel:[phone] Referring Provider: Jelani Perdomo, [address] [facility] [address] [place], [address]. tel:[phone] Offic/outpt E&m Estab Mod-hi 2 [facility], [address] [address], [place], [address], [place] tel:[phone] [facility] Patient feels she has an ulcer due to previou (chief complaint) Epigastric PainNausea Alone 3 Crystal Palomares. [address] [facility] [address], [place], [address], [place]. tel:[phone] Referring Provider: Referral Self. [facility], [address] [address], [place], [address], [place] tel:[phone] [facility] Diverticulosi s Of ColonColon Cancer ScreeningFami ly Hx GI Tract CancerColon Cancer ScreeningDive rticulosis Of ColonPersonal History Colon PolypsFamily Hx GI Tract Cancer 2 Rica Mustafa. [address] [facility] [address], [place], [address], [place]. tel:[phone] Offic/outpt E&m Estab Low-mod [facility], [address] [address], [place], [address], [place] tel:[phone] [facility] Anemia (chief complaint)Pa ncreatic pseudocyst (chief complaint)Di scuss colonoscopy (chief complaint) Pancreat Cyst/pseudocy stPersonal History Colon Polyps 2 No Information Offic/outpt E&m Estab Low-mod [facility], [address] [address], [place], [address], [place] tel:[phone] [facility] Pancreas lesion (chief complaint) Pancreat Cyst/pseudocy st 1 No Information Offic/outpt E&m Estab Low-mod [facility], [address] [address], [place], [address], [place] tel:[phone] [facility] Pancreas lesion (chief complaint) Pancreat Cyst/pseudocy st 0 No Information Referring Provider: Referral Self. [facility], [address] [address], [place], [address], [place] tel:[phone] [facility] No Information [address] [facility], [facility] [address], [place], [place], [address], [place]. tel:[phone] Offic/outpt E&m Estab Mod-hi 2 [facility], [address] [address], [place], [id number], [place] tel:[phone] [facility] Diarrhea (chief complaint) Pancreat Cyst/pseudocy st 0 No Information [facility], [address] [address], [place], [id number], [place] tel:[phone] [facility] No Information [address] [facility], [facility] [address], [place], [place], [address], [place]. tel:[phone] Offic/outpt E&m Estab Mod-hi 2 [facility], [address] [address], [place], [address], [place] tel:[phone] [facility] No Information [address] [facility], [facility] [address], [place], [place], [address], [place]. tel:[phone] [facility], [address] [address], [place], [address], [place] tel:[phone] [facility] No Information [address] [facility], [facility] [address], [place], [place], [address], [place]. tel:[phone] Referring Provider: Cedrick Seaman MD, [address] [facility] [address], [place], [address] . tel:[phone] Offic Cons New/estab Mod 40 Mi [facility], [address] [address], [place], [address], [place] tel:[phone] [facility] Abn X-ray GI Tract Dec- 0-200 8 [...] directional interface ; Source: Other Registry Novel [id number], all formulations administered Note: [facility] bi-direct ional [...] Registry Payers Payer name Insurance type Covered democrat ID Authorsarmada titapan(s) Medicare NGS MB [id number] [facility] [id number] Social History Type Description Quantity Date Captured [...] date/timeframe: 01/18/2018 ordered Referral Ordered: referred to [facility] Genetic consult ordered History Of Present Illness [...] established patient, who I am seeing via televAutoESLit in followup for her chronic diarrhea. She [...]
[2023-01-14 06:56] VITALS: BP 135/70; PULSE 70; RESP 18; TEMP 36.8; O2SAT 99
[2023-01-14 06:58] VITALS: BP 135/70; PULSE 70; RESP 18; TEMP 36.8
== END 2023-01-14 06:58 | disposition home or self-care (01) ==
LOC: ED 06:52
PROVIDERS: Emergency Provider Family Medicine; PCP Family Medicine
DX: S60.212A Contusion of left wrist, initial encounter (principal); W55.01XA Bitten by cat, initial encounter
CPT/HCPCS: 99283

== ENCOUNTER 2023-06-15 19:23 | Emergency (ER) | payer MEDICARE, OTHER, SELFPAY ==
[2023-06-15 19:30] VITALS: BP 170/79; PULSE 71; O2SAT 99; BMI 23.0
--- NOTE | 2023-06-15 19:39 | ED_ITS ---
HPI - Animal Bite General Chief Complaint: Animal Bite Stated Complaint: Cat bite r hand Time Seen by Provider: 06/15/23 19:25 History of Present Illness HPI narrative: This 77-year-old female comes in because of a cat bite to her right forearm. This occurred prior to arrival. She was bitten by her own cat who appears well and is up-to-date on all vaccinations. She states that she is traveling to [place] tomorrow and previously did have a cat bite that it was not treated and developed into a significant infection. Related Data Home Medications Medication Instructions Recorded Confirmed amlodipine 2.5 mg tablet 2.5 mg PO DAILY 01/04/22 01/14/23 famotidine 20 mg tablet 20 mg PO BID 01/04/22 01/14/23 latanoprost 0.005 % eye drops 1 drp ophthalmic (eye) DAILY 01/04/22 01/14/23 levothyroxine 100 mcg capsule 100 mcg PO DAILY 01/04/22 01/14/23 drctzv-bjonuzir-uvokyaj 2 cap PO TID 01/04/22 01/14/23 36,000-114,000-180,000 unit capsule,delay rel (Creon) losartan 50 mg tablet 50 mg PO BID 01/04/22 01/14/23 triamterene 37.5 1 cap PO DAILY 01/04/22 01/14/23 mg-hydrochlorothiazide 25 mg capsule atorvastatin 20 mg tablet 20 mg PO DAILY 01/14/23 01/14/23 levothyroxine 88 mcg tablet 88 mcg PO 3XW 01/14/23 01/14/23 omeprazole 20 mg capsule,delayed 20 mg PO DAILY 01/14/23 01/14/23 release Previous Rx's Medication Instructions Recorded meclizine 25 mg tablet 25 mg PO QID #20 tabs 01/04/22 Allergies Allergy/AdvReac Type Severity Reaction Status Date / Time Sulfa (Sulfonamide Allergy Mild Hives Verified 01/14/23 06:41 Antibiotics) Review of Systems Status of ROS: Reports: 10 or more systems reviewed and unremarkable except as noted in History and below Narrative: Constitutional: No fevers, no weight gain or loss. Eyes: No discharge. No vision changes. HENT: No congestion, no sore throat, no ear pain. Cardiovascular: No chest pain, no palpitations. Respiratory: No shortness of breath, no wheezes, no cough. Gastrointestinal: No abdominal pain, no vomiting, no diarrhea. Genitourinary: No dysuria, no hematuria. Musculoskeletal: Normal range of motion. Skin: No rashes, no pruritis. Neurological: No dizziness, weakness, sensory change, speech change. Endo/Heme/Allergies: No bruising or bleeding. No polydipsia. Pysch: no suicidality, no anxiety, no insomnia. All other systems reviewed and are negative. [facility] Social History Smoking Status: Never smoker Second hand tobacco smoke exposure: No How often do you have a drink containing alcohol: monthly or less AUDIT-C Alcohol total score: 1 Non-prescribed substance use: denies use Exam Narrative: Exam Narrative: Constitutional: Well-developed, well-nourished, no acute distress. HEENT: Normocephalic, atraumatic. Neck: Normal range of motion. Nontender. Supple. Heart: Intact distal pulses. Lungs: No chest discomfort. No wheezes, rhonchi, or rales. Abdomen: Nontender. Back: Normal range of motion. Extremities: Normal range of motion. Small single puncture wound in the right forearm. Skin: Intact. No rash. Warm. No erythema or pallor. Neurologic: No altered sensation. No weakness. Alert and oriented. Psychiatric: No suicidality. No anxiety or depression. No insomnia. Nursing notes and vitals signs are reviewed. Const: Vital Signs, click to edit/add: Vital Signs - 24 hr 06/15/23 19:30 Pulse Rate [Pulse Oximeter] 71 Blood Pressure [Ri ght Upper Arm] 170/79 H Pulse Oximetry 99 Oxygen Delivery Me thod Room Air Course Vital Signs Vital signs: Initial Vital Signs Pulse Rate 71 06/15/23 19:30 Pulse Rhythm Regular 06/15/23 19:30 Blood Pressure 170/79 H 06/15/23 19:30 Blood Pressure Mean 109 H 06/15/23 19:30 Blood Pressure Position Sitting 06/15/23 19:30 Pulse Oximetry 99 06/15/23 19:30 Oxygen Delivery Method Room Air 06/15/23 19:30 Vital Signs Pulse Rate 71 06/15/23 19:30 Blood Pressure 170/79 H 06/15/23 19:30 Pulse Oximetry 99 06/15/23 19:30 Oxygen Delivery Method Room Air 06/15/23 19:30 Pulse Rate 71 06/15/23 19:30 Blood Pressure 170/79 H 06/15/23 19:30 Pulse Oximetry 99 06/15/23 19:30 Oxygen Delivery Method Room Air 06/15/23 19:30 MDM - Animal Bite MDM Narrative Medical decision making narrative: This patient comes in with a cat bite to her right forearm. She is planning to travel to [place] tomorrow. She comes in knowing that cat bites have significant risk for developing an infection. The patient has no significant findings currently other than a puncture wound in her right forearm. There is no sign of drainage or need for suture repair. The patient is okay to return home and did receive a prescription for Augmentin from the [facility] machine twice daily for 7 days. Discharge Plan Discharge Clinical Impression: Cat bite Patient Disposition: Home, Self-Care Condition: Stable Additional Instructions: Take medication as prescribed. Follow up with MD or return if worsening. Prescriptions: No Action losartan 50 mg tablet 50 mg PO BID latanoprost 0.005 % drops 1 drp ophthalmic (eye) DAILY amlodipine 2.5 mg tablet 2.5 mg PO DAILY triamterene-hydrochlorothiazid 37.5-25 mg capsule 1 cap PO DAILY famotidine 20 mg tablet 20 mg PO BID Creon 36,000-114,000- 180,000 unit capsule,delayed release(DR/EC) 2 cap PO TID levothyroxine 100 mcg capsule 100 mcg PO DAILY meclizine 25 mg tablet 25 mg PO QID Qty: 20 0RF atorvastatin 20 mg tablet 20 mg PO DAILY levothyroxine 88 mcg tablet 88 mcg PO 3XW omeprazole 20 mg capsule,delayed release(DR/EC) 20 mg PO DAILY Follow Up/Referrals: Jone Calvert MD [Primary Care Provider] - Stand Alone Forms: [employer] Info Instructions
--- OUTSIDE RECORDS SUMMARY | 2023-06-15 19:46 | XMS_ITS | Clinical Summary ---
Author Name Unknown Organization [facility] Address [address] [place] [id number] Care Team Providers Care Cigar Packing Examiner Name Role Phone Manohar Calvert Primary Care Provider [phone] Allergies Active Allergy Reactions Criticality Noted Date Comments Sulfa Antibiotics Hives 07/07/2013 Medications Medication Sig Dispensed Refills Start Date End Date Status LOSARTAN POTASSIUM PO Take 50 mg by mouth 2 times daily (Takes 0.5 x 100mg tablet = 50mg dose) 0 Active Potassium Chloride (K-TABS PO) Take 20 mEq by mouth daily (Takes 2 x 10mEq tablet = 20mEq dose) 0 Active latanoprost (XALATAN) 0.005 % ophthalmic solution Place 1 drop into both eyes At Bedtime 0 Active Multiple Vitamins-Minerals (MULTIVITAL PO) Take 1 tablet by mouth daily 0 Active Methylsulfonylmeth ane (MSM PO) Take 2,000 mg by mouth 2 times daily 0 Active MAGNESIUM OXIDE PO Take 400 mg by mouth daily 0 Active Ascorbic Acid (VITAMIN C PO) Take 1,000 mg by mouth 2 times daily 0 Active triamterene-hydroc hlorothiazide (DYAZIDE) 37.5-25 MG per capsule Take 1 capsule by mouth daily 0 09/20/2013 Active Levothyroxine Sodium (SYNTHROID PO) Take 100 mcg by mouth five times a week 4 days/week 0 Active VITAMIN D, CHOLECALCIFEROL, PO Take 5,000 Units by mouth every morning 0 Active Marion-3 Fatty Acids (FISH OIL PO) Take 2 capsules by mouth daily 0 Active Levothyroxine Sodium (SYNTHROID PO) Take 88 mcg by mouth twice a week 3 days/week 0 Active Probiotic Product (PROBIOTIC PO) Take 1 tablet by mouth daily 0 Active CREON 15555 units CPEP per EC capsule 0 12/13/2018 Active ferrous sulfate 140 (45 Fe) MG TBCR CR tablet Take 140 mg by mouth daily 0 Active nitroFURantoin macrocrystal-monoh ydrate (MACROBID) 100 MG capsuleIndications :Frequent UTI Take 1 capsule (100 mg) by mouth 2 times daily 14 capsule 0 09/10/2020 Active VITAMIN E PO 0 Active amLODIPine (NORVASC) 2.5 MG tablet TAKE 1 TABLET (2.5 MG) BY MOUTH ONCE DAILY. 0 12/16/2020 Active CRANBERRY PO 0 Active METAMUCIL FIBER PO 0 Active Multiple Vitamins-Minerals (ZINC PO) 0 Active estradiol (ESTRACE) 0.1 MG/GM vaginal creamIndications:V aginal atrophy Use 1 gram vaginally at bedtime three times a week, use finger for application 42.5 g 0 05/04/2022 Active Active Problems Problem Noted Date Diagnosed Date Cervical cancer screening 01/29/2017 Overview: 01/19/17 pt meets guidelines for discontinuing paps, but would like to continue with annual pap smears 01/25/18 NIL pap, Neg HPV 03/14/20 NIL, Neg HPV 03/20/21 NIL, Neg HPV Criteria necessary to stop screening per ASCCP guidelines: Older than 65 years Three consecutive negative cytology results or two consecutive negative cotest results within the previous 10 years, with the most recent being performed within the last 5 years. (Women with hx of CAITIE 2 or 3, or adenocarcinoma in situ should continue screening for full 20 years, even if this goes past age 65). Pelvic prolapse 09/14/2016 Uterus, adenomyosis 07/10/2013 Immunizations Name Administration Dates Next Due COVID-19 MONOVALENT 12+ (Pfizer) 06/27/2020,05/18 DTaP, Unspecified 12/09/2011 Flu, Unspecified 01/15/2018,04/03/1996 Influenza (H1N1) 05/28/2009 Influenza (High Dose) 3 katelin nt vaccine 12/28/2018,02/24/2018,03/05/2017,2015,03/22/2015,01/30/2014 Influenza (IIV3) PF 02/14/2018, 1,05/21/2010,2002 Influenza Vaccine 65+ (Fluzone HD) 01/13/2021 Mantoux Tuberculin Skin Test 01/02/2019,12/27/19 Pneumo Conj 13-V (2010&after) 01/21/2016 Pneumococcal 23 valent 01/15/2011 TD,PF 7+ (Tenivac) 03/30/2008 TDAP (Adacel,Boostrix) 12/09/2011 Td (Adult), Adsorbed 04/03/1996 Zoster recombinant adjuvante d (SHINGRIX) 05/29/2019,12/28/2018 Zoster vaccine, live 02/01/2009,05/17/2008 Family History Medical History Relation Comments Cancer Brother 1 Cardiovascular Brother 2 No Known Problems Father Unknown/Adopted Maternal Grandfather Cardiovascular Maternal Grandmother Hypertension Mother No Known Problems Other No Known Problems Paternal Grandfather Unknown/Adopted Paternal Grandmother Cancer - colorectal Sister Relation Status Comments Brother 1 Brother 2 Father Maternal Grandfather Maternal Grandmother Mother Other Paternal Grandfather Paternal Grandmother Sister Social History Tobacco Use Types Packs/Day Years Used Date Smoking Tobacco: Never Smokeless Tobacco: Never Tobacco Cessation:Counseling Given: No Alcohol Use Standard Drinks/Week Comments Yes 0 (1 standard drink = 0.6 oz pur e alcohol) seldom PHQ-2 Answer Date Recorded PHQ-2 Score 0 03/20/2021 Adolescent Education Answer Date Record ed Getting School Help Needed Not on file 02/07 Sex and Gender Information Value Date Recorded Sex Assigned at Female 11/14/2020 7:51 AM CDT Gender Identity Not on file Sexual Orientation Not on file Last Filed Vital Signs Vital Sign Reading Time Taken Comments Blood Pressure 114/64 03/20/2021 3:31 PM CDT Pulse 68 03/20/2021 3:31 PM CDT Temperature 36.7 ??C (98.1 ??F) 09/16/2016 11:52 AM C DT Respiratory Rate 16 09/16/2016 11:52 AM CDT Oxygen Saturation 97% 09/16/2016 11:52 AM CDT Inhaled Oxygen Concentration - - Weight 61.7 kg (136 lb) 03/20/2021 3:31 PM CDT Height 156.8 cm (5' 1.75) 03/20/2021 3:31 PM CD T Body Mass Index 25.08 03/20/2021 3:31 PM CDT Plan of Treatment Health Maintenance Due Date Last Done Comments ANNUAL REVIEW OF HM ORDERS 1945 TSH W/FREE T4 REFLEX 1945 HEPATITIS C SCREENING 08/28/1963 LIPID 1990 RSV VACCINE ( & 60+) (1 - 1-dose 60+ series) 2005 DTAP/TDAP/TD IMMUNIZATION (3 - Td or Tdap) 12/08/2021 12/09/2011, 12/09/2011, 03/30/2008, Additional history exists FALL RISK ASSESSMENT 03/20/2022 03/20/2021, 03/14/2020, 01/24/2018, Additional history exists MEDICARE ANNUAL WELLNESS VISIT 03/20/2022 03/20/2021, 07/05/2020, 03/14/2020, Additional history exists COVID-19 Vaccine ( season) 2023 02/17/2021, 06/27/2020, 06/06/2020 INFLUENZA VACCINE (#1) 2023 , 12/28/2018, 02/24/2018, Additional history exists PHQ-2 (once per calendar year) 2023 03/20/2021, 03/20/2021, 08/06/2020, Additional history exists ADVANCE CARE PLANNING 03/20/2026 03/20/2021 DEXA 03/14/2035 03/14/2020, 01/15, 09/19/2015, Additional history exists Pneumococcal Vaccine: 65+ Years Completed 01/21/2016, 01/15/2011 COLONOSCOPY Discontinued 01/18/2018 COLORECTAL CANCER SCREENING Discontinued ZOSTER IMMUNIZATION Completed 05/29/2019, 12/28/2018, 02/01/2009, Additional history exists MAMMO SCREENING Discontinued 03/20/2021, 02/15, 01/30/2019, Additional history exists CT COLONOGRAPHY Discontinued FIT Discontinued FLEX SIG Discontinued HPV IMMUNIZATION Aged Out No longer e ligible based on patient's age to complete this topic IPV IMMUNIZATION Aged Out No longer e ligible based on patient's age to complete this topic MENINGITIS IMMUNIZATION Aged Out No l onger eligible based on patient's age to complete this topic RSV MONOCLONAL ANTIBODY Aged Out No l onger eligible based on patient's age to complete this topic sDNA (Cologuard) Discontinued Medical Devices Implanted Type Area Digital Imaging Specialist Device Identifier Shelf Expiration Date Model / Serial / Lot Mesh Sling Y Shape Restorelle 24x4cm [id number] Implanted:Qty: 1 on 09/14/2016 by Sona Calderon MD at [facility] Mesh N/A: Sacrum COLOPLAST 03/30/2019 [id number] / / [id number] Advance Directives For more information, please contact: [phone] Latest Code Status on File Code Status Date Activated Date Inactivated Comments Full Code 09/15/2016 1:09 PM Code Status History Code Status Date Activated Date Inactivated Comments Full Code 09/14/2016 6:39 PM 09/15/2016 1:09 PM Full Code 07/10/2013 9:27 AM 07/11/2013 5:46 PM Care Teams Cigar Packing Examiner Relationship Specialty Start Date End Date Manohar Calvert PCP - General Family Practice 01/30/19
--- OUTSIDE RECORDS SUMMARY | 2023-06-15 19:46 | XMS_ITS | Encounter Summary ---
Author Name Unknown Organization [place] Address [facility] [place] [address] Care Team Providers Care Financial Reporting Consultant Name Role Phone Manohar Calvert Primary Care Provider [phone] Fabian Hercules MD Unavailable Chitra Diaz APRN DIRECT SERVICE PROVIDER Unavailable Fabian Hercules MD Unavailable [phone] Chitra Diaz APRN DIRECT SERVICE PROVIDER Unavailable Reason for Visit * Reason Onset Date Comments MyChart Communication 09/05/2020 Encounter Details Date Type Department Care Team (Latest Contact Info) Description 09/05/2020 [place] Medical Advice [facility] [place] [address] [facility] [address] [place] [address] Chitra Diaz APRN DIRECT SERVICE PROVIDER [address] [facility] [address] [place], [place] [address] MyChart Communication Social History Tobacco Use Types Packs/Day Years Used Date Smoking Tobacco: Never Smokeless Tobacco: Never Alcohol Use Standard Drinks/Week Comments Yes 0 (1 standard drink = 0.6 oz pur e alcohol) seldom PHQ-2 Answer Date Recorded PHQ-2 Score 0 08/06/2020 Sex and Gender Information Value Date Recorded Sex Assigned at Female 11/14/2020 7:51 AM CDT Gender Identity Not on file Sexual Orientation Not on file COVID-19 Exposure Response Date Recorded In the last month, have you been in contact with someone who was confirmed or suspected to have Coronavirus / COVID-19? No / Unsure 09/05/2020 12:38 PM CDT documented as of this encounter Miscellaneous Notes * Telephone Encounter - Chitra Diaz APRN CNP - 09/06/2020 10:42 AM CDT Replied via [employer] on lab result * Telephone Encounter - Chitra Styles RN - 09/06/2020 9:39 AM CDT Routing pt [employer] message to provider to advise. Chitra Styles RN on 09/06/2020 at 9:39 AM documented in this encounter Plan of Treatment Not on file documented as of this encounter Visit Diagnoses Not on filedocumented in this encounter Additional Health Concerns Assessment Noted Time PHQ-9 Depression Total Score: 1 03/14/20 20 3:25 PM CDT documented as of this encounter Care Teams Financial Reporting Consultant Relationship Specialty Start Date End Date Manohar Calvert PCP - General Family Practice 01/30/19 [place] [address] [place] [address] Assigned OBGYN Provider 03/08/20 Chitra Diaz APRN CNP [address] [address] Assigned OBGYN Provider 11/29/20 [place] [address] [place] [address] Assigned OBGYN Provider 03/23/21 Chitra Diaz APRN DIRECT SERVICE PROVIDER [address] [facility] [address] [place] [address] Assigned OBGYN Provider 06/08/21 documented as of this encounter
--- OUTSIDE RECORDS SUMMARY | 2023-06-15 19:46 | XMS_ITS | Encounter Summary ---
Author Name Unknown Organization [place] Address [facility] [place] [address] Care Team Providers Care Manager Systems Name Role Phone Manohar Calvert Primary Care Provider [phone] Fabian Hercules MD Unavailable [phone] Chitra Diaz APRN SCHOOL CHILD CARE ATTENDANT Unavailable [phone] Fabian Hercules MD Unavailable Chitra Diaz APRN SCHOOL CHILD CARE ATTENDANT Unavailable [phone] Reason for Visit * Reason Onset Date Comments MyChart Communication 08/11/2020 Encounter Details Date Type Department Care Team (Latest Contact Info) Description 08/11/2020 [place] Medical Advice [facility] [address] [address] [place] [address] [place], [place] [id number] MyChart Communication Social History Tobacco Use Types [...] have Coronavirus / COVID-19? No / Unsure 08/06/2020 3:09 PM CDT documented as of this encounter Plan of Treatment Not on file documented as of this encounter Visit Diagnoses Not on filedocumented in this encounter Additional Health Concerns Assessment Noted Time PHQ-9 Depression Total Score: 1 03/14/20 20 3:25 PM CDT documented as of this encounter Care Teams Manager Systems Relationship Specialty Start Date End Date Manohar Calvert PCP - General Family Practice 01/30/19 [place] [address] [place] [address] Assigned OBGYN Provider 03/08/20 Chitra Diaz APRN SCHOOL CHILD CARE ATTENDANT [address] [place] [address] Assigned OBGYN Provider 11/29/20 [place] [address] [place] [address] Assigned OBGYN Provider 03/23/21 Chitra Diaz APRN SCHOOL CHILD CARE ATTENDANT [address] [place] [address] Assigned OBGYN Provider 06/08/21 documented as of this encounter
--- OUTSIDE RECORDS SUMMARY | 2023-06-15 19:46 | XMS_ITS | Referral Summary ---
Author Name Unknown Organization [facility] Address [address] [place] [id number] Care Team Providers Care Mixer Operator Vacuum Pan Salt Name Role Phone Manohar Calvert Primary Care Provider [phone] Allergies Active Allergy Reactions Criticality Noted Date [...] Units by mouth every morning 0 Active Mesick-3 Fatty Acids (FISH OIL PO) Take 2 capsules by mouth daily 0 Active Levothyroxine Sodium (SYNTHROID PO) Take 88 mcg by mouth twice a week 3 days/week 0 Active Probiotic Product (PROBIOTIC PO) Take 1 tablet by mouth daily 0 Active CREON 42922 units CPEP per EC capsule 0 12/13/2018 [...] HD) 01/13/2021 Mantoux Tuberculin Skin Test 01/02/2019,12/27/19 19 Pneumo Conj 13-V (2010&after) 01/21/2016 Pneumococcal 23 valent 01/15/2011 TD,PF 7+ (Tenivac) 03/30/2008 TDAP (Adacel,Boostrix) 12/09/2011 Td (Adult), Adsorbed 04/03/1996 Zoster recombinant adjuvante d (SHINGRIX) 05/29/2019,12/28/2018 Zoster vaccine, live 02/01/2009,05/17/2008 Social History Tobacco Use Types Packs/Day Years [...] 03/20/2021 3:31 PM CDT Plan of Treatment Not on file Medical Devices Implanted Type Area Director Supply Chain Device Identifier Shelf Expiration Date Model / Serial / Lot Mesh Sling Y Shape Restorelle [id number] Implanted:Qty: 1 on 09/14/2016 by Sona Calderon MD at [facility] Mesh N/A: Sacrum COLOPLAST 03/30/2019 [id number] / / [id number] Advance Directives For more information, please contact: [phone] Latest Code Status on File Code Status Date Activated Date Inactivated Comments Full Code 09/15/2016 1:09 PM Code Status History Code Status Date Activated Date Inactivated Comments Full Code 09/14/2016 6:39 PM 09/15/2016 1:09 PM Full Code 07/10/2013 9:27 AM 07/11/2013 5:46 PM Care Teams Mixer Operator Vacuum Pan Salt Relationship Specialty Start Date End Date Manohar Calvert PCP - General Family Practice 01/30/19
--- OUTSIDE RECORDS SUMMARY | 2023-06-15 19:46 | XMS_ITS | Clinical Summary ---
Author Name Unknown Organization [facility] Address [place], [place] [address] Care Team Providers Care Retail Beauty Specialist Name Role Phone Jone Calvert MD Primary Care Provider Allergies Active Allergy Reactions Criticality Noted Date Comments Nirmatrelvir-Ritonav ir Other - Describe In Comment Field 09/19/2021 Anxious, crazy, can't relax, blood pressure up and down. Sulfa (Sulfonamide Antibiotics) Hives 05/06/2007 Medications Medication Sig Dispensed Refills Start Date End Date Status Magnesium 200 mg Tab Take 400 mg by mouth once daily. 0 Active Methylsulfonylmeth ane (MSM) 1,000 mg cap Take 2 capsules by mouth 2 times daily. 0 5 Active multivitamin (MVI) tablet Take 1 tablet by mouth once daily. 0 5 Active Lactobac no.41-Bifidobact no.7 (PROBIOTIC-10) 70 mg (3 billion cell) cap Take 1 tablet by mouth once daily. 0 Active miscellaneous medical supply miscIndications:Ne ed for COVID-19 vaccine Pfizer COVID-19 booster vaccine per CDC guidelines. 1 unit 0 1 Active cholecalciferol, Vitamin D3, (Vitamin D-3) 5,000 unit tab tablet Take by mouth once daily. 0 1 Active ascorbic acid, vitamin C, (Vitamin C) 1,000 mg tablet Take 1 Tablet (1,000 mg) by mouth once daily. 0 1 Active medication order composer Vitamin E 160 mg once daily, Fish Oil, Cranberry Caps 0 1 Active zinc 50 mg tablet Take 1 Tablet (50 mg) by mouth once daily. 0 1 Active psyllium (Metamucil Fiber Singles) 3.4 gram pwpk packet Mix in liquid then take by mouth. 0 Active Cranberry 400 mg capsule 0 1 Active ferrous sulfate 325 mg delayed release tablet Take 1 Tablet by mouth. 0 1 Active estradioL (ESTRACE) 0.01% (0.1 mg/g) vaginal cream Insert into the vagina at bedtime. 0 2 Active latanoprost (XALATAN) 0.005 % ophthalmic solution Place 1 Drop into both eyes at bedtime. 2.5 mL 0 2 Active FreeStyle Maximiliano 2 SensorIndications: Type 2 diabetes mellitus without complication, without long-term current use of insulin (HC) To be used to read blood sugars per utility accounts director' s directions. Change each sensor every 14 days. 2 Each 12 3 Active levothyroxine (SYNTHROID) 100 mcg tabletIndications: Hypothyroidism, unspecified type 1 p.o. daily 4 days/week. 48 Tablet 2 3 Active levothyroxine (SYNTHROID) 88 mcg tabletIndications: Hypothyroidism, unspecified type 1 p.o. daily 3 days/week. 36 Tablet 2 3 Active Creon 36,000-114,000- 180,000 unit capsuleIndications :Diarrhea, unspecified type TAKE 2 CAPSULES THREE TIMES A DAY WITH MEALS FOR DIARRHEA. SWALLOW WHOLE. DO NOT CRUSH, CHEW, AND/OR DIVIDE. 540 Capsule 3 4 Active amLODIPine (NORVASC) 2.5 mg tabletIndications: Benign essential HTN Take 1 Tablet (2.5 mg) by mouth once daily. 90 Tablet 1 4 Active atorvastatin (LIPITOR) 20 mg tabletIndications: Hyperlipidemia, unspecified hyperlipidemia type Take 1 Tablet (20 mg) by mouth at bedtime. 90 Tablet 1 4 Active losartan (COZAAR) 50 mg tabletIndications: Hypertension, unspecified type Take 1 Tablet (50 mg) by mouth two times daily. 180 Tablet 1 4 Active omeprazole 20 mg tabletIndications: Chronic GERD Take 1 Tablet (20 mg) by mouth once daily before a meal. 90 Tablet 1 4 Active potassium chloride (KLOR-CON M10) 10 mEq extended-release tablet (part/cryst)Indica tions:Hypertension , unspecified type Take 2 Tablets (20 mEq) by mouth once daily with a meal. 180 Tablet 1 4 Active triamterene-hydroc hlorothiazide, 37.5-25 mg, (DYAZIDE) 37.5-25 mg capsuleIndications :Hypertension, unspecified type Take 1 Capsule by mouth every morning. 90 Capsule 4 Active Creon 36,000-114,000- 180,000 unit capsuleIndications :Diarrhea, unspecified type TAKE 2 CAPSULES THREE TIMES A DAY WITH MEALS FOR DIARRHEA. SWALLOW WHOLE. DO NOT CRUSH, CHEW, AND/OR DIVIDE. 540 Capsule 3 3 05/18/19 24 Discontinued triamterene-hydroc hlorothiazide, 37.5-25 mg, (DYAZIDE) 37.5-25 mg capsuleIndications :Hypertension, unspecified type Take 1 Capsule by mouth every morning. 90 Capsule 3 05/26/19 24 Discontinued(Reo rder (E-cancel not sent)) potassium chloride (K-DUR, KLOR-CON M10) 10 mEq tabletIndications: Hypertension, unspecified type Take 2 Tablets (20 mEq) by mouth once daily with a meal. 180 Tablet 3 3 05/26/19 24 Discontinued(Reo rder (E-cancel not sent)) losartan (COZAAR) 50 mg tabletIndications: Hypertension, unspecified type Take 1 Tablet (50 mg) by mouth two times daily. 180 Tablet 3 3 05/26/19 24 Discontinued(Reo rder (E-cancel not sent)) amLODIPine (NORVASC) 2.5 mg tabletIndications: Benign essential HTN Take 1 Tablet (2.5 mg) by mouth once daily. 90 Tablet 3 3 05/26/19 24 Discontinued(Reo rder (E-cancel not sent)) omeprazole 20 mg tabletIndications: Chronic GERD Take 1 Tablet (20 mg) by mouth once daily before a meal. 90 Tablet 3 3 05/26/19 24 Discontinued(Reo rder (E-cancel not sent)) atorvastatin (LIPITOR) 20 mg tabletIndications: Hyperlipidemia, unspecified hyperlipidemia type Take 1 Tablet (20 mg) by mouth at bedtime. 90 Tablet 3 3 05/26/19 24 Discontinued(Reo rder (E-cancel not sent)) Active Problems Problem Noted Date Diagnosed Date Depression, recurrent 11/12/2022 Chronic pain of left ankle 07/30/2022 Agenesis of pancreas 07/30/2022 Lymphedema 01/30/2020 GERD (gastroesophageal reflux disease) 4 Essential hypertension 12/21/2013 Hyperlipidemia 12/21/2013 Hypothyroid 12/21/2013 Resolved Problems Problem Noted Date Diagnosed Date Resolved Date Physical exam, annual 12/21/20132018 Systolic murmur 12/21/2013 07/30/2022 Lightheadedness 12/12/2013 06/13/2018 Near syncope 12/12/2013 07/16/2021 Encounters Date Type Department Care Team Description 05/26/2023 8:25 AM MANUFACTURING TEACHER Office Visit [facility] [address] [place] [address] Jone Calvert MD Diabetes (6 month follow up); Dizziness (Couple episodes of lightheadedness/dizz iness last week) 05/26/2023 Travel 05/16/2023 Refill [facility] [address] [place] [address] Cedrick Seaman MD Refill Request (Creon) 05/13/2023 Nurse Triage [facility] [address] [place] [address] Jone Calvert MD Questions (covid) 05/05/2023 3:30 PM MANUFACTURING TEACHER Orders Only [facility] [address] [place] [address] Lab, [place] Lab 05/05/2023 Travel 05/04/2023 Orders Only [facility] Scanner 1 scan: (1-Ord) [facility], SCREEN BILAT W/GEORGES/CAD, 05/04/2023 04/30/2023 Telephone [facility] [address] [place] [address] Jone Calvert MD Lab from Last 3 Months Immunizations Name Administration Dates Next Due COVID-19 vaccine (Pfizer-Bio NTech 30mcg/0.3mL) 12YO+ BIVALENT PF, MDV 11/12/2022 COVID-19 vaccine (Pfizer-Bio NTech 30mcg/0.3mL) PF, MDV 02/17/2021,06/27/2020,06/06/2020 Influenza A (H1N1), Inactivated 05/28/2009 Influenza Virus, Unspecified 01/15/2018,04/03/19 96 Influenza, High-dose Inactivated 019,02/24/2018,03/05/2017,2015,03/22/2015,01/30/2014 Influenza, High-dose Quadriv alent Inactivated 02/01/2022,01/13/2021 Influenza, IIV3 (Age >=3 years) 02/15/20 18,03/03/2011,05/21/2010,2002 Pneumococcal Conj 20-valent (Prevnar 20) 07/30/2022 Pneumococcal Poly,23-Valent (Pneumovax) 01/15/2011 Pneumococcal conj 13-Valent (Prevnar 13) 01/21/2016 Td (Age >=7 Years) 04/03/1996 Td, Preservative Free (age > = 7 Years) 03/30/2008 Tdap 07/22/2021,12/09/2011 Tuberculin (PPD) 01/02/2019,12/26/2018 Zoster (Shingrix-RZV, recombinant) 05/29/2019, Zoster (Zostavax-ZVL, live) 02/01/2009, 9 Family History Medical History Relation Name Comments Cancer-pancreatic Brother 1 in hi s 50's Lymphoma Brother 1 Cancer Brother 2 Cancer Other pancreas, unspe cified relative Cancer-colon Sister age in 40's Cancer-pancreatic Sister in he r 50's. Anesthesia Problem No Family History Relation Name Status Comments Brother 1 Alive Brother 2 Other Sister Social History Tobacco Use Types Packs/Day Years Used Date Smoking Tobacco: Never Smokeless Tobacco: Never Tobacco Cessation:Counseling Given: No Alcohol Use Standard Drinks/Week Comments Yes 0 (1 standard drink = 0.6 oz pur e alcohol) rare PHQ-2 Answer Date Recorded PHQ-2 TOTAL SCORE 1 07/30/2022 Social Connections Answer Date Recorded Frequency of Communication with Friends and Fami ly 0 05/26/2023 Financial Resource Strain Answer Date R ecorded Difficulty of Paying Living Expenses 3 05/26/2023 Difficulty of Paying Living Expenses Not on file 05/26/2023 Food Insecurity Answer Date Recorded Worried About Running Out of Food in the Last Ye ar 1 05/26/2023 Transportation Needs Answer Date Record ed Lack of Transportation (Medical) 1 05/26/2023 Housing Stability Answer Date Recorded Unable to Pay for Housing in the Last Year 1 05/26/2023 Sex and Gender Information Value Date Recorded Sex Assigned at Not on file Gender Identity Not on file Sexual Orientation Not on file Obstetrics History Last Filed Vital Signs Vital Sign Reading Time Taken Comments Blood Pressure 135/81 05/26/2023 8:22 AM MANUFACTURING TEACHER Pulse 52 05/26/2023 8:22 AM MANUFACTURING TEACHER Temperature 36.7 ??C (98 ??F) 12/19/2021 3:53 PM CDT Respiratory Rate 16 05/01/2021 12:0 1 PM MANUFACTURING TEACHER Oxygen Saturation 99% 05/26/2023 8:22 AM MANUFACTURING TEACHER Inhaled Oxygen Concentration - - Weight 67.5 kg (148 lb 12.8 oz) 05/26/2023 8:22 AM MANUFACTURING TEACHER Height 156.2 cm (5' 1.5) 07/30/2022 10 :40 AM CDT Body Mass Index 27.66 07/30/2022 10:40 AM CDT Plan of Treatment Upcoming Encounters Date Type Department Care Team (Late st Contact Info) Description 11/22/2023 9:15 AM CDT Orders Only [facility] [address] [place] [address] Lab, [place] 11/24/2023 9:15 AM CDT Office Visit [facility] [address] [place] [address] Jone Calvert MD [address] [place] [address] Health Maintenance Due Date Last Done Comments COVID-19 vaccine series (2022-24 season) 2023 11/12/2022, 02/01/2022, 08/20/2021, Additional history exists Influenza for age 65+ 01/15/2023 02/01/2022 , 01/13/2021, 12/28/2018, Additional history exists Medicare Wellness for age 65+ 07/30/2023, 07/16/2021, 07/05/2020, Additional history exists BMI (ht and wt on same day) for age 18+ 07/31/2023 07/30/2022, 07/16/2021, 08/06/2020, Additional history exists Depression screening for age 12+ 08/04/2023 08/03/2022, 07/31/2022, 07/30/2022, Additional history exists Tetanus booster 07/23/2031 07/22/2021, 11/15, 03/30/2008, Additional history exists Zoster (shingles) series for age 50+ Completed 05/29/2019, 12/28/2018, 02/01/2009, Additional history exists Hepatitis C screening for ag e 18-79 Completed 07/03/2020 Tdap Completed 07/22/2021, 12/09/2011 Pneumococcal series for age 65+ Completed 07/30/2022, 01/21/2016, 05/15/2011, Additional history exists DEXA/DXA scan for age 65+ Completed 08/20/2022, Procedures Procedure Name Priority Date/Time Associated Diagnosis Comments HEMOGLOBIN A1C Routine 05/05/2023 3:36 PM MANUFACTURING TEACHER Type 2 diabetes mellitus without complication, without long-term current use of insulin (HC) SCAN-MAMMOGRAPHY REPORT 05/04/2023 12:00 AM MANUFACTURING TEACHER from Last 3 Months Results * HEMOGLOBIN A1C MONITORING (POCT) (05/05/2023 3:36 PM MANUFACTURING TEACHER) HEMOGLOBIN A1C MONITORING (POCT) 6.2 <=6.4 % 05/05/2023 3:49 PM MANUFACTURING TEACHER [facility] Blood BLOOD SPECIMEN / Unknown Venipuncture / Unknown 05/05/2023 3:36 PM MANUFACTURING TEACHER 05/05/2023 3:36 PM MANUFACTURING TEACHER Narrative [facility] - 05/05/2023 3:49 PM MANUFACTURING TEACHER ? (<=6.9%) ? Indicates good control ? (7.0% to 7.9%) ? Indicates fair control ? (>=8.0%) ? Indicates poor control ?? NOTE: ??These thresholds are guidelines and ?individual targets may vary. Falsely low levels may be seen with: Recent Transfusion, Recent Significant Blood Loss, Hemolytic Diseases, or Falsely elevated levels may be seen with: Untreated Anemias, Splenectomy ? Jone Calvert MD CHEMISTRY [facility] [address] [place] [address], * SCAN-MAMMOGRAPHY REPORT (05/04/2023 12:00 AM MANUFACTURING TEACHER) Anatomical Region Laterality Modality Other Scanner OTHER from Last 3 Months Advance Directives Latest Code Status on File Code Status Date Activated Date Inactivated Comments Full Code 07/24/2020 7:55 AM 07/24/2020 2:01 PM Question Answer Comments Code Status Discussion: Discussed Code Status History Code Status Date Activated Date Inactivated Comments Full Code 01/18/2018 7:04 AM 01/18/2018 12:38 PM Full Code 01/18/2018 7:04 AM 01/18/2018 7:04 AM Full Code 03/02/2013 8:27 AM 03/02/2013 4:32 PM Full Code 04/18/2009 8:01 AM 04/18/2009 6:21 PM Care Teams Retail Beauty Specialist Relationship Specialty Start Date End Date Jone Calvert MD [address] [place] [address] PCP - General Family Practice 05/04/18
--- OUTSIDE RECORDS SUMMARY | 2023-06-15 19:46 | XMS_ITS | Encounter Summary ---
Author Name Unknown Organization [facility] Address [address] [place] [address] Care Team Providers Care Customer Experience Retail Clerk Name Role Phone Manohar Calvert Primary Care Provider [phone] Chitra Diaz APRN PLASTERER MAINTENANCE Unavailable Reason for Visit * Reason Comments Medication Refill Encounter Details Date Type Department Care Team (Late st Contact Info) Description 08/10/2022 Refill [facility] [place] [address] [place] [address] [phone] Chitra Diaz APRN PLASTERER MAINTENANCE [address] [facility] [address] [place] [address] Medication Refill Social History Tobacco Use Types Packs/Day Years Used Date Smoking Tobacco: Never Smokeless Tobacco: Never Alcohol Use Standard Drinks/Week Comments Yes 0 (1 standard drink = 0.6 oz pur e alcohol) seldom PHQ-2 Answer Date Recorded PHQ-2 Score 0 03/20/2021 Sex and Gender Information Value Date Recorded Sex Assigned at Female 11/14/2020 7:51 AM CDT Gender Identity Not on file Sexual Orientation Not on file documented as of this encounter Miscellaneous Notes * Telephone Encounter - Chitra Styles RN - 08/11/2022 8:21 AM CDT Requested Prescriptions Pending Prescriptions Disp Refills ??? estradiol (ESTRACE) 0.1 MG/GM vaginal cream [Pharmacy Med Name: ESTRADIOL VAG CRM W/APPL 42.5GM0.01%] 42.5 g 2 Sig: USE 1 GRAM VAGINALLY AT BEDTIME THREE TIMES A WEEK (USE FINGER FOR APPLICATION) (APPOINTMENT NEEDED FOR FURTHER REFILLS) Hormone Replacement Therapy Failed - 08/10/2022 11:18 PM Failed - Blood pressure under 140/90 in past 12 months BP Readings from Last 3 Encounters: 03/20/21 114/64 11/21/20 112/62 09/05/20 126/68 Failed - Recent (12 mo) or future (30 days) visit within the authorizing provider's specialty Patient has had an office visit with the authorizing provider or a provider within the authorizing providers department within the previous 12 mos or has a future within next 30 days. See Patient Info tab in inbasket, or Choose Columns in Meds & Orders section of the refill encounter. Passed - Medication is active on med list Passed - Patient is 18 years of age or older Passed - No active on record Passed - No positive test on record in past 12 months Last Written Prescription Date: 05/04/22 Last Fill Quantity: 42.5g, # refills: 0 Last office visit: 03/20/2021 ; last virtual visit: 06/03/2021 with prescribing provider: Chitra Robertson Future Office Visit: Pt due for annual, no appt scheduled. Pt already received one month extension. Rx denied. Chitra Styles RN on 08/11/2022 at 8:22 AM documented in this encounter Plan of Treatment Not on file documented as of this encounter Visit Diagnoses Diagnosis Vaginal atrophy Postmenopausal atrophic vaginitis documented in this encounter Additional Health Concerns Assessment Noted Time PHQ-9 Depression Total Score: 2 03/20/20 21 3:32 PM CDT documented as of this encounter Care Teams Customer Experience Retail Clerk Relationship Specialty Start Date End Date Manohar Calvert PCP - General Family Practice 01/30/19 Chitra Diaz APRN PLASTERER MAINTENANCE [address] [place] [address] Assigned OBGYN Provider 06/08/21 documented as of this encounter
--- OUTSIDE RECORDS SUMMARY | 2023-06-15 19:47 | XMS_ITS | Continuity of Care Document ---
Author Name Unknown Organization [facility] Address [address] [address] [place] [address] Phone Care Team Providers Care Cat Sitter Name Role Phone Cedrick Seaman MD Unavailable [...] Estab Mod-hi 2 13 Colonoscopy Flex; Dx (sep Pro) 12 Offic/outpt E&m Estab Low-mod 2 [...] Encounter [facility] EST[address] [address], [place], [id number], [place] tel:[phone] [facility] Family history of pancreatic cancer 3 Urszula Philip. [address] [facility], [facility] [[email or web address] [address], [place], [place], [address], [place]. tel:[phone] Jelani Peace MD. tel:[phone] [facility], [address] [address], [facility] [place], [address], [place] tel:[phone] [facility] Family history of pancreatic cancer 2 Urszula Philip. [address] [facility], [facility] [[email or web address] [address], [place], [address], [place]. tel:[phone] Jelani Peace MD. tel:[phone] [facility], [address] [address], [facility], [address], [place] tel:[phone] [facility] GI Symptoms or Concerns (chief complaint) Hemorrhoids, internalFamil y history of colon cancerDiverti culosis of colonHemorrho ids, internalEncou nter for screening for malignant neoplasm of colonFamily history of malignant neoplasm of digestive organs 2 Min MD Burgess. [address] [facility], [facility] [[email or web address] [address], [place], [address], [place]. tel:[phone] Jelani Peace MD. tel:[phone] erring Provider: Referral Self, USE FOR SELF REFERRALS. [facility], [address] [address], [facility] [place], [address], [place] tel:[phone] [facility] No Information 2 Yobani Nguyễn. [address] [facility], [facility] [[email or web address] [address], [place], [address], [place]. tel:[phone] [facility], [address] [address], [facility] [place], [address], [place] tel:[phone] [facility] No Information 2 Urszula Philip. [address] [facility], [facility] [[email or web address] [address], [place], [address], [place]. tel:[phone] Referring Provider: Referral Self, USE FOR SELF REFERRALS. Offic/outpt E&m Estab Mod-hi 2 [facility], [address] [address], [place], [address], [place] tel:[phone] [facility] GI Symptoms or Concerns (chief complaint) Family history of pancreatic cancerDietary counseling and surveillanceE levated blood-pressur e reading, w/o diagnosis of htn 1 Urszula Philip. [address] [place] [address], [id number], [place]. tel:[phone] Jelani Peace MD. tel:[phone] erring Provider: Referral Self, USE FOR SELF REFERRALS. [facility], [address] [address], [place], [address], [place] tel:[phone] [facility] No Information 1 Yobani Nguyễn. [address] [place] [address], [id number], [place]. tel:[phone] [facility], [address] [address], [place], [id number], [place] tel:[phone] [facility] Pancreatic abnormality 1 Yobani Nguyễn. [address] [place] [address], [id number], [place]. tel:[phone] Telephone E&M III 21-30 Min ROSA [facility], [address] [address], [place], [address], [place] tel:[phone] [facility] GI Symptoms or Concerns (chief complaint) Flatulence, eructation and gas painGas painEructatio n 0 Yobani Nguyễn. [address] [place] [address], [id number], [place]. tel:[phone] Jelani Peace MD. tel:[phone] erring Provider: Gamaliel Sullivan MD, [address] [place] [address], [address]. tel:[phone] Telephone E&M II 11-20 Min ROSA [facility], [address] [address], [place], [address], [place] tel:[phone] [facility] GI Symptoms or Concerns (chief complaint) Chronic diarrhea 0 Yobani Nguyễn. [address] [facility], [address], [id number], [place]. tel:[phone] Jelani Peace MD. tel:[phone] erring Provider: Referral Self, USE FOR SELF REFERRALS. Telephone E&M II 11-20 Min ROSA [facility], [address] [address], [place], [address], [place] tel:[phone] [facility] GI Symptoms or Concerns (chief complaint) Pancreatic atrophyChroni c diarrheaIrrit able bowel syndrome with diarrhea 0 Yobani Nguyễn. [address] [place] [address], [address], [id number], [place]. tel:[phone] Jelani Peace MD. tel:[phone] erring Provider: Referral Self, USE FOR SELF REFERRALS. [facility], [address] [address], [place], [place], [address], [place] tel:[phone] [facility] No Information 0 Bebeto Cuba. [address] [facility], [address], [id number], [place]. tel:[phone] Offic/outpt E&m Estab Low-mod [facility], [address] [address], [place], [place], [address], [place] tel:[phone] [facility] No Information 8 Urszula Philip. [address] [facility], [place] [address], [place], [place], [address], [place]. tel:[phone] Referring Provider: [place], [address] [place] [address] [address], [place], [address] . tel:[phone] [facility], [address] [address], [place], [address], [place] tel:[phone] [facility] No Information 8 Urszula Philip. [address] [facility], [address], [place], [place], [address], [place]. tel:[phone] Referring Provider: Cedrick Seaman MD, [address] [facility] [address], [place], [address] . tel:[phone] Offic/outpt E&m Estab Mod-hi 2 [facility], [address] [address], [place], [address], [place] tel:[phone] [facility] No Information 8 Urszula Philip. [address] [facility], [facility] [[email or web address] [address], [place], [place], [address], [place]. tel:[phone] Referring Provider: Cedrick Seaman MD, [address] [facility] [address], [place], [address] . tel:[phone] [facility], [address] [address], [place], [id number], [place] tel:[phone] [facility] Disease of pancreasDiarr hea, unspecified type 8 Urszula Philip. [address] [facility], [address], [place], [place], [address], [place]. tel:[phone] Jelani Peace MD. tel:[phone] [facility], [address] [address], [place], [address], [place] tel:[phone] [facility] Colon cancer screeningFami ly history of colon cancerDiverti culosis of colon without diverticuliti sPersonal history of colonic polypsEncount er for screening for malignant neoplasm of colonDvrtclos of lg int w/o perforation or abscess w/o bleedingFamil y history of malignant neoplasm of digestive organs 7 Mick Alston. [address] [facility], [address], [place], [place], [address], [place]. tel:[phone] Referring Provider: Jelani Peace MD D, [address] [facility] [address], [place], [address]. tel:[phone] [facility], [address] [address], [place], [place], [address], [place] tel:[phone] [facility] Pancreatic abnormality Urszula Philip. [address] [facility], [facility] [[email or web address]] [address], [place], [address], [place]. tel:[phone] Jelani Peace MD. tel:[phone] [facility], [address] [address], [place], [place], [address], [place] tel:[phone] [facility] Pancreatic lesion Urszula Philip. [address] [facility], [facility] [[email or web address]] [address], [place], [place], [address], [place]. tel:[phone] Jelani Peace MD. tel:[phone] Offic/outpt E&m Estab Mod-hi 2 [facility], [address] [address], [place], [place], [address], [place] tel:[phone] [facility] No Information Urszula Philip. [address] [facility], [facility] [[email or web address]] [address], [place], [address], [place]. tel:[phone] Referring Provider: Jelani Peace MD D, [address], [place], [address]. tel:[phone] Offic/outpt E&m Estab Mod-hi 2 [facility], [address] [address], [place], [place], [address], [place] tel:[phone] [facility] GI Symptoms or Concerns (chief complaint) Pancreatic atrophyDiarrh ea, unspecified typePersonal history of colonic polypsDietary counseling and surveillance 6 Latesha Gonzalez. [address] [facility], [facility] [[email or web address]] [address], [place], [place], [address], [place]. tel:[phone] Jelani Peace MD. tel:[phone] erring Provider: Referral Self, USE FOR SELF REFERRALS. [facility], [address] [address], [place], [place], [address], [place] tel:[phone] [facility] Abn X-ray GI Tract 5 [place] [employer] Martha. [address] [facility], [facility] [[email or web address]] [address], [place], [address], [place]. tel:[phone] Offic/outpt E&m Estab Minor [facility], [address] [address], [place], [place], [address], [place] tel:[phone] [facility] Nausea AloneNausea AloneEpigastr ic Pain 4 [place] [employer] Martha. [address] [facility], [facility] [[email or web address]] [address], [place], [address], [place]. tel:[phone] Referring Provider: Jelani Peace MD D, [address] [facility] [address] [place], [address]. tel:[phone] Offic/outpt E&m Estab Mod-hi 2 [facility], [address] [address], [place], [place], [address], [place] tel:[phone] [facility] Nausea Alone 3 Lauren Villela. [address] [facility], [facility] [[email or web address]] [address], [place], [address], [place]. tel:[phone] Referring Provider: Referral Self, USE FOR SELF REFERRALS. [facility], [address] [address], [place], [place], [address], [place] tel:[phone] [facility] Polyp-intes/r ect/stom-unc BehGastric Polyp-benignG astric Polyp-benignE pigastric Pain 3 Michaelle Villela. [address] [facility], [facility] [[email or web address]] [address], [place], [address], [place]. tel:[phone] Referring Provider: Jelani Peace MD D, [address], [place], [address]. tel:[phone] Offic/outpt E&m Estab Mod-hi 2 [facility], [address] [address], [place], [address], [place] tel:[phone] [facility] Patient feels she has an ulcer due to previou (chief complaint) Epigastric PainNausea Alone 3 Crystal Palomares. [address] [facility], [facility] [[email or web address]] [address], [place], [address], [place]. tel:[phone] Referring Provider: Referral Self, USE FOR SELF REFERRALS. [facility], [address] [address], [place], [address], [place] tel:[phone] [facility] Diverticulosi s Of ColonColon Cancer ScreeningFami ly Hx GI Tract CancerColon Cancer ScreeningDive rticulosis Of ColonPersonal History Colon PolypsFamily Hx GI Tract Cancer 2 Rica Mustafa. [address] [facility], [facility] [[email or web address]] [address], [place], [place], [address], [place]. tel:[phone] Offic/outpt E&m Estab Low-mod [facility], [address] [address], [place], [address], [place] tel:[phone] [facility] Anemia (chief complaint)Pa ncreatic pseudocyst (chief complaint)Kimberly scuss colonoscopy (chief complaint) Pancreat Cyst/pseudocy stPersonal History Colon Polyps 2 No Information Offic/outpt E&m Estab Low-mod [facility], [address] [address], [place], [address], [place] tel:[phone] [facility] Pancreas lesion (chief complaint) Pancreat Cyst/pseudocy st 1 No Information Offic/outpt E&m Estab Low-mod [facility], [address] [address], [place], [address], [place] tel:[phone] [facility] Pancreas lesion (chief complaint) Pancreat Cyst/pseudocy st 0 No Information Referring Provider: Referral Self, USE FOR SELF REFERRALS. [facility], [address] [address], [place], [address], [place] tel:[phone] [facility] No Information 0 Urszula Philip. [address] [facility], [address], [place], [place], [address], [place]. tel:[phone] Offic/outpt E&m Estab Mod-hi 2 [facility], [address] [address], [place], [address], [place] tel:[phone] [facility] Diarrhea (chief complaint) Pancreat Cyst/pseudocy st 0 No Information [facility], [address] [address], [place], [address], [place] tel:[phone] [facility] No Information 9 Urszula Philip. [address] [facility], [facility] [[email or web address]] [address], [place], [place], [address], [place]. tel:[phone] Offic/outpt E&m Estab Mod-hi 2 [facility], [address] [address], [place], [address], [place] tel:[phone] [facility] No Information 9 Urszula Philip. [address] [facility], [address], [place], [place], [address], [place]. tel:[phone] [facility], [address] [address], [place], [address], [place] tel:[phone] [facility] No Information 9 Urszula Philip. [address] [facility], [address], [place], [place], [address], [place]. tel:[phone] Referring Provider: Cedrick Seaman MD, [address] [facility] [address], [place], [address] . tel:[phone] Offic Cons New/estab Mod 40 Pr [place] [facility] [address] [address], [place], [address], tel:[phone] [facility] Abn X-ray GI Tract 0-200 8 No Information Family History Family [...] quadrivalent, .7mL dose, preservative free administered Note: [facility] bi-direct ional interface ; Source: Other Registry [...] directional interface ; Source: Other Registry Novel [id number], all formulations administered Note: [facility] bi-direct ional interface ; Source: Other Registry zoster vaccine, live administered Note: M [facility] bi-directional interface ; Source: Other Registry zoster vaccine, live administered Note: M [facility]IC bi-directional interface ; Source: Other Registry [...] Registry Payers Payer name Insurance type Covered republican ID Authoriza titapan(s) Medicare NGS MB [id number] [facility] [id number] Social History Type Description Quantity Date Captured [...] date/timeframe: 01/18/2018 ordered Referral Ordered: referred to [facility] Genetic consult ordered History Of Present Illness [...] established patient, who I am seeing via televisit in followup for her chronic diarrhea. She consented to today's visit. Total time for medical discussion and decision making was 25 minutes. She and I were the only ones participated in today's [...] counseling and surveillance Assessments Type Assessment Date assessment Family history of pancreatic can cer Patient Care Teams Name Effective Dates (start - stop) Status Members No Information
--- OUTSIDE RECORDS SUMMARY | 2023-06-15 19:47 | XMS_ITS | Continuity of Care Document ---
Author Name Unknown Organization [facility] Address [address] [address] [place] [address] Phone Care Team Providers Care Superintendent Overhead Distribution Name Role Phone Cedrick Seaman MD Unavailable [...] Encounter [facility] ESTRELLITA ANGUI[address] [address], [place], [id number], [place] tel:[phone] [facility] Family history of pancreatic cancer 3 Urszula Philip. [address] [facility], [facility] [address], [place], [place], [address], [place]. tel:[phone] Jelani Peace MD. tel:[phone] [facility], [address] [address], [facility] [place], [address], [place] tel:[phone] [facility] Family history of pancreatic cancer 2 Urszula Philip. [address] [facility], [facility] [address], [place], [address], [place]. tel:[phone] Jelani Peace MD. tel:[phone] [facility], [address] [address], [facility], [address], [place] tel:[phone] [facility] GI Symptoms or Concerns (chief complaint) Hemorrhoids, internalFamil y history of colon cancerDiverti culosis of colonHemorrho ids, internalEncou nter for screening for malignant neoplasm of colonFamily history of malignant neoplasm of digestive organs 2 Min MD Burgess. [address] [facility], [facility] [address], [place], [address], [place]. tel:[phone] Jelani Peace MD. tel:[phone] erring Provider: Referral Self, USE FOR SELF REFERRALS. [facility], [address] [address], [facility] [place], [address], [place] tel:[phone] [facility] No Information 2 Yobani Nguyễn. [address] [facility], [facility] [address], [place], [address], [place]. tel:[phone] [facility], [address] [address], [facility] [place], [address], [place] tel:[phone] [facility] No Information 2 Urszula Philip. [address] [facility], [facility] [address], [place], [address], [place]. tel:[phone] Referring Provider: Referral Self, USE FOR SELF REFERRALS. Offic/outpt E&m Estab Mod-hi 2 [facility], [address] [address], [place], [id number], [place] tel:[phone] [facility] GI Symptoms or Concerns (chief complaint) Family history of pancreatic cancerDietary counseling and surveillanceE levated blood-pressur e reading, w/o diagnosis of htn 1 Urszula Philip. [address] [place] [address], [id number], [place]. tel:[phone] Jelani Peace MD. tel:[phone] erring Provider: Referral Self, USE FOR SELF REFERRALS. [facility], [address] [address], [place], [id number], [place] tel:[phone] [facility] No Information 1 Yobani Nguyễn. [address] [place] [address], [id number], [place]. tel:[phone] [facility], [address] [address], [place], [address], [place] tel:[phone] [facility] Pancreatic abnormality 1 Yobani Nguyễn. [address] [place] [address], [id number], [place]. tel:[phone] Telephone E&M III 21-30 Min ROSA [facility], [address] [address], [place], [address], [place] tel:[phone] [facility] GI Symptoms or Concerns (chief complaint) Flatulence, eructation and gas painGas painEructatio n 0 Yobani Nguyễn. [address] [place] [address], [id number], [place]. tel:[phone] Jelani Peace MD. tel:[phone] erring Provider: Gamaliel Sullivan MD, [address] [place] [address], [address]. tel:[phone] Telephone E&M II 11-20 Min ROSA [facility], [address] [address], [place], [address], [place] tel:[phone] [facility] GI Symptoms or Concerns (chief complaint) Chronic diarrhea 0 Yobani Nguyễn. [address] [facility], [address], [id number], [place]. tel:[phone] Jelani Peace MD. tel:[phone] erring Provider: Referral Self, USE FOR SELF REFERRALS. Telephone E&M II 11-20 Min ROSA [facility], [address] [address], [place], [id number], [place] tel:[phone] [facility] GI Symptoms or Concerns (chief complaint) Pancreatic atrophyChroni c diarrheaIrrit able bowel syndrome with diarrhea 0 Yobani Nguyễn. [address] [place] [address], [address], [id number], [place]. tel:[phone] Jelani Peace MD. tel:[phone] erring Provider: Referral Self, USE FOR SELF REFERRALS. [facility], [address] [address], [place], [address], [place] tel:[phone] [facility] No Information 0 Bebeto Cuba. [address] [facility], [address], [id number], [place]. tel:[phone] Offic/outpt E&m Estab Low-mod [facility], [address] [address], [place], [address], [place] tel:[phone] [facility] No Information 8 Urszula Pihlip. [address] [facility], [place] [address], [place], [place], [address], [place]. tel:[phone] Referring Provider: [place], [address] [place] [address] [address], [place], [address] . tel:[phone] [facility], [address] [address], [place], [address], [place] tel:[phone] [facility] No Information 8 Urszula Philip. [address] [facility], [address], [place], [place], [address], [place]. tel:[phone] Referring Provider: Cedrick Seaman MD, [address] [facility] [address], [place], [address] . tel:[phone] Offic/outpt E&m Estab Mod-hi 2 [facility], [address] [address], [place], [address], [place] tel:[phone] [facility] No Information 8 Urszula Philip. [address] [facility], [facility] [address], [place], [place], [address], [place]. tel:[phone] Referring Provider: Cedrick Seaman MD, [address] [facility] [address], [place], [address] . tel:[phone] [facility], [address] [address], [place], [address], [place] tel:[phone] [facility] Disease of pancreasDiarr hea, unspecified type 8 Urszula Philip. [address] [facility], [address], [place], [place], [address], [place]. tel:[phone] Jelani Peace MD. tel:[phone] [facility], [address] [address], [place], [id number], [place] tel:[phone] [facility] Colon cancer screeningFami ly history of colon cancerDiverti culosis of colon without diverticuliti sPersonal history of colonic polypsEncount er for screening for malignant neoplasm of colonDvrtclos of lg int w/o perforation or abscess w/o bleedingFamil y history of malignant neoplasm of digestive organs 7 Mick Alston. [address] [facility], [address], [place], [place], [address], [place]. tel:[phone] Referring Provider: Jelani Peace MD D, [address] [facility] [address], [place], [address]. tel:[phone] [facility], [address] [address], [place], [place], [address], [place] tel:[phone] [facility] Pancreatic abnormality Urszula Philip. [address] [facility], [facility] [address], [place], [address], [place]. tel:[phone] Jelani Peace MD. tel:[phone] [facility], [address] [address], [place], [place], [address], [place] tel:[phone] [facility] Pancreatic lesion Urszula Philip. [address] [facility], [facility] [address], [place], [place], [address], [place]. tel:[phone] Jelani Peace MD. tel:[phone] Offic/outpt E&m Estab Mod-hi 2 [facility], [address] [address], [place], [place], [address], [place] tel:[phone] [facility] No Information Urszula Philip. [address] [facility], [facility] [address], [place], [address], [place]. tel:[phone] Referring Provider: Jelani Peace MD D, [address], [place], [address]. tel:[phone] Offic/outpt E&m Estab Mod-hi 2 [facility], [address] [address], [place], [place], [address], [place] tel:[phone] [facility] GI Symptoms or Concerns (chief complaint) Pancreatic atrophyDiarrh ea, unspecified typePersonal history of colonic polypsDietary counseling and surveillance 6 Latesha Gonzalez. [address] [facility], [facility] [address], [place], [place], [address], [place]. tel:[phone] Jelani Peace MD. tel:[phone] erring Provider: Referral Self, USE FOR SELF REFERRALS. [facility], [address] [address], [place], [place], [address], [place] tel:[phone] [facility] Abn X-ray GI Tract 5 Cantril MET[employer] CE[employer] HANGER Martha. [address] [facility], [facility] [address], [place], [address], [place]. tel:[phone] Offic/outpt E&m Estab Minor [facility], [address] [address], [place], [place], [address], [place] tel:[phone] [facility] Nausea AloneNausea AloneEpigastr ic Pain 4 Cantril [employer] CE[employer] HANGER Martha. [address] [facility], [facility] [address], [place], [address], [place]. tel:[phone] Referring Provider: Jelani Peace MD D, [address] [facility] [address] [place], [address]. tel:[phone] Offic/outpt E&m Estab Mod-hi 2 [facility], [address] [address], [place], [place], [address], [place] tel:[phone] [facility] Nausea Alone 3 Lauren Villela. [address] [facility], [facility] [address], [place], [address], [place]. tel:[phone] Referring Provider: Referral Self, USE FOR SELF REFERRALS. [facility], [address] [address], [place], [place], [address], [place] tel:[phone] [facility] Polyp-intes/r ect/stom-unc BehGastric Polyp-benignG astric Polyp-benignE pigastric Pain 3 Michaelle Villela. [address] [facility], [facility] [address], [place], [address], [place]. tel:[phone] Referring Provider: Jelani Peace MD D, [address], [place], [address]. tel:[phone] Offic/outpt E&m Estab Mod-hi 2 [facility], [address] [address], [place], [address], [place] tel:[phone] [facility] Patient feels she has an ulcer due to previou (chief complaint) Epigastric PainNausea Alone 3 Crystal Palomares. [address] [facility], [facility] [address], [place], [address], [place]. tel:[phone] Referring Provider: Referral Self, USE FOR SELF REFERRALS. [facility], [address] [address], [place], [address], [place] tel:[phone] [facility] Diverticulosi s Of ColonColon Cancer ScreeningFami ly Hx GI Tract CancerColon Cancer ScreeningDive rticulosis Of ColonPersonal History Colon PolypsFamily Hx GI Tract Cancer 2 Rica Mustafa. [address] [facility], [facility] [address], [place], [place], [address], [place]. tel:[phone] Offic/outpt E&m Estab Low-mod [facility], [address] [address], [place], [address], [place] tel:[phone] [facility] Anemia (chief complaint)Pa ncreatic pseudocyst (chief complaint)Kimberly scuss colonoscopy (chief complaint) Pancreat Cyst/pseudocy stPersonal History Colon Polyps 2 No Information Offic/outpt E&m Estab Low-mod [facility], [address] [address], [place], [address], [place] tel:[phone] [facility] Pancreas lesion (chief complaint) Pancreat Cyst/pseudocy st 1 No Information Offic/outpt E&m Estab Low-mod [facility], [address] [address], [place], [address], [place] tel:[phone] [facility] Pancreas lesion (chief complaint) Pancreat Cyst/pseudocy st 0 No Information Referring Provider: Referral Self, USE FOR SELF REFERRALS. [facility], [address] [address], [place], [address], [place] tel:[phone] [facility] No Information 0 Urszula Philip. [address] [facility], [address], [place], [place], [address], [place]. tel:[phone] Offic/outpt E&m Estab Mod-hi 2 [facility], [address] [address], [place], [address], [place] tel:[phone] [facility] Diarrhea (chief complaint) Pancreat Cyst/pseudocy st 0 No Information [facility], [address] [address], [place], [address], [place] tel:[phone] [facility] No Information 9 Urszula Philip. [address] [facility], [facility] [address], [place], [place], [address], [place]. tel:[phone] Offic/outpt E&m Estab Mod-hi 2 [facility], [address] [address], [place], [address], [place] tel:[phone] [facility] No Information 9 Urszula Philip. [address] [facility], [address], [place], [place], [address], [place]. tel:[phone] [facility], [address] [address], [place], [address], [place] tel:[phone] [facility] No Information 9 Urszula Philip. [address] [facility], [address], [place], [place], [address], [place]. tel:[phone] Referring Provider: Cedrick Seaman MD, [address] [facility] [address], [place], [address] . tel:[phone] Offic Cons New/estab Mod 40 [place] [facility] [address] [address], [place], [address], tel:[phone] [facility] Abn X-ray GI Tract 0-200 8 No [...] quadrivalent, .7mL dose, preservative free administered Note: MDIC bi-direct ional interface ; Source: Other Registry [...] directional interface ; Source: Other Registry Novel [id number], all formulations administered Note: [facility] bi-direct ional [...] Registry Payers Payer name Insurance type Covered alliance party ID Authoriza titapan(s) Medicare NGS MB [id number] [facility] [id number] Social History Type Description Quantity Date Captured [...] date/timeframe: 01/18/2018 ordered Referral Ordered: referred to [facility] Genetic consult ordered History Of Present [...]
[2023-06-15] MEDS: AMOXICILLIN/CLAVULANATE 875 mg/125 mg TABLET PO (20:04)
== END 2023-06-15 20:04 | disposition home or self-care (01) ==
LOC: ED 19:44
PROVIDERS: Emergency Provider Emergency Medicine Emergency Medical Services; PCP Family Medicine
DX: S51.851A Open bite of right forearm, initial encounter (principal); W55.01XA Bitten by cat, initial encounter
CPT/HCPCS: 99283; 99284; A9270

== ENCOUNTER 2025-03-30 00:37 | Outpatient (CLI) | payer MEDICARE, OTHER, SELFPAY | END 2025-03-30 00:38 | disposition home or self-care (01) | LOC: AMB 04-03 18:38 | PROVIDERS: PCP Family Medicine; Visit Provider Internal Medicine | DX: R07.89 Other chest pain (principal) | CPT/HCPCS: A0425; A0427 ==

== ENCOUNTER 2025-03-30 01:19 | Emergency (ER) | payer MEDICARE, OTHER, SELFPAY ==
--- OUTSIDE RECORDS SUMMARY | 2025-02-14 07:37 | XMS_ITS | Continuity of Care Document ---
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 Role Phone Gopi Rico MD Unavailable Unavailabl e Allergies, Adverse Reactions, Alerts Substance Reaction Status Criticality Sulfa (Sulfonamide Antibiotics) Hives Active No Information Medications Medication Instructions Dosage Effective Dates (start - stop) Status Comments omeprazole 20 mg capsule,delayed release take 1 capsule by oral route 2 times every day 30 minutes to 1 hour before a meal 20 MG - Active Synthroid 100 mcg tablet take 1 tablet by oral route 4 times every week 100 MCG - Active Zetia 10 mg tablet take 1 tablet by oral route every day 10 MG - Active Creon 36,000 unit-114,000 unit-180,000 unit capsule,delayed release take 2 capsule by oral route 3 times every day with meals swallowing whole. Do not crush, chew and/or divide. for Diarrhea 2 capsule - Active 90 day supply per pt's request Dyazide 37.5 mg-25 mg Cap take one tablet po qday. - Active losartan 100 mg tablet take 1 tablet (100MG) by oral route every day 100 MG - Active Procedures Procedure Date Ugi Endo; W/bx 1/mx Level Iv-surg Path Gross/micro 25 Established Level 4 Offic/outpt E&m Estab Low-mod 4 Colorectal Ca Screen Hi Risk I 22 Offic/outpt E&m Estab Mod-hi 2 21 Telephone [...] Diagnoses Date Provider Providers Copied on Encounter [facility], [address] [address], [place], [address], [place] tel:[phone] [facility] No Information 5 Yobani Nguyễn. [address] [facility], [address], [id number], [place]. [phone] [facility], [address] [address], [place], [address], [place] tel:[phone] [facility] Family history of pancreatic cancer 5 Urszula Philip. [address], [id number], [place]. tel:[phone] Jelani Peace MD. tel:[phone] erring Provider: Referral Self, USE FOR SELF REFERRALS. [facility], [address] [address], [place], [address], [place] tel:[phone] [facility] No Information 5 Yobani Nguyễn. [address], [id number], [place]. tel:[phone] [facility], [address] [address], [place], [id number], [place] tel:[phone] [facility] GI Symptoms or Concerns (chief complaint) Gastro-esopha geal reflux disease without esophagitisPo lyp of stomach and duodenumGastr o-esophageal reflux disease without esophagitis 5 Yobani Nguyễn. [address], [id number], [place]. tel:[phone] Jelani Peace MD. tel:[phone] erring Provider: Referral Self, USE FOR SELF REFERRALS. Established Level [address] [facility], [address] [address], [place], [address], [place] tel:[phone] [facility] GI Symptoms or Concerns (chief complaint)Pr evious History Review (chief complaint) Flatulence, eructation and gas painGERD without esophagitis 4 Yobani Nguyễn. [address] [facility], [facility] [address], [place], [address], [place]. tel:[phone] Jelani Peace MD. tel:[phone] erring Provider: Referral Self, USE FOR SELF REFERRALS. [facility], [address] [address], [place], [address], [place] tel:[phone] [facility] GI Symptoms or Concerns (chief complaint) No Information 4 Yobani Nguyễn. [address] [facility], [facility] [address], [place], [address], [place]. tel:[phone] Jelani Peace MD. tel:[phone] [facility], [address] [address], [place], [address], [place] tel:[phone] [facility] No Information 4 Yobani Nguyễn. [address] [facility], [facility] [address], [place], [address], [place]. tel:[phone] Offic/outpt E&m Estab Low-mod [facility], [address] [address], [place], [address], [place] tel:[phone] [facility] Previous History Review (chief complaint) Flatulence, eructation and gas pain 4 Yobani Nguyễn. [address] [facility], [facility] [address], [place], [address], [place]. tel:[phone] Jelani Peace MD. tel:[phone] erring Provider: Jone Tsai, [address], [place], [address]. tel:[phone] [facility], [address] [address], [place], [id number], [place] tel:[phone] [facility] No Information Oct-0 4 Urszula Philip. [address] [place] [address], [address], [id number], [place]. tel:[phone] Referring Provider: Referral Self, USE FOR SELF REFERRALS. [facility], [address] [address], [place], [address], [place] tel:[phone] [facility] Family history of pancreatic cancer 3 Urszula Philip. [address] [place] [address], [address], [id number], [place]. tel:[phone] Jelani Peace MD. tel:[phone] [facility], [address] [address], [place], [address], [place] tel:[phone] [facility] Family history of pancreatic cancer 2 Urszula Philip. [address] [place] [address], [id number], [place]. tel:[phone] Jelani Peace MD. tel:[phone] [facility], [address] [address], [place], [address], [place] tel:[phone] [facility] GI Symptoms or Concerns (chief complaint) Hemorrhoids, internalFamil y history of colon cancerDiverti culosis of colonHemorrho ids, internalEncou nter for screening for malignant neoplasm of colonFamily history of malignant neoplasm of digestive organs 2 Min MD Burgess. [address] [facility], [address], [id number], [place]. tel:[phone] Jelani Peace MD. tel:[phone] erring Provider: Referral Self, USE FOR SELF REFERRALS. [facility], [address] [address], [place], [id number], [place] tel:[phone] [facility] No Information 2 Yobani Nguyễn. [address] [facility], [facility] [address], [place], [place], [address], [place]. tel:[phone] [facility], [address] [address], [place], [id number], [place] tel:[phone] [facility] No Information 2 Urszula Philip. [address] [facility], [facility] [address], [place], [place], [address], [place]. tel:[phone] Referring Provider: Referral Self, USE FOR SELF REFERRALS. Offic/outpt E&m Estab Mod-hi [address] [facility], [address] [address], [place], [id number], [place] tel:[phone] [facility] GI Symptoms or Concerns (chief complaint) Family history of pancreatic cancerDietary counseling and surveillanceE levated blood-pressur e reading, w/o diagnosis of htn 1 Urszula Philip. [address] [facility], [address], [id number], [place]. tel:[phone] Jelani Peace MD. tel:[phone] erring Provider: Referral Self, USE FOR SELF REFERRALS. [facility], [address] [address], [place], [address], [place] tel:[phone] [facility] No Information 1 Yobani Nguyễn. [address] [facility], [address], [address], [place]. tel:[phone] [facility], [address] [address], [place], [address], [place] tel:[phone] [facility] Pancreatic abnormality 1 Yobani Nguyễn. [address] [facility], [facility] [address], [place], [address], [place]. tel:[phone] Telephone E&M III 21-[address] [facility], [address] [address], [place], [address], [place] tel:[phone] [facility] GI Symptoms or Concerns (chief complaint) Flatulence, eructation and gas painGas painEructatio n Jan- 0 Yobani Nguyễn. [address] [facility], [address], [id number], [place]. tel:[phone] Jelani Peace MD. tel:[phone] erring Provider: Gamaliel Sullivan MD, [address] [place] [address], [address]. tel:[phone] Telephone E&M II 11-[address] [facility], [address] [address], [place], [address], [place] tel:[phone] [facility] GI Symptoms or Concerns (chief complaint) Chronic diarrhea 0 Yobani Nguyễn. [address] [facility], [facility] [address], [place], [address], [place]. tel:[phone] Jelani Peace MD. tel:[phone] erring Provider: Referral Self, USE FOR SELF REFERRALS. Telephone E&M II 11-[address] [facility], [address] [address], [place], [address], [place] tel:[phone] [facility] GI Symptoms or Concerns (chief complaint) Pancreatic atrophyChroni c diarrheaIrrit able bowel syndrome with diarrhea 0 Yobani Nguyễn. [address] [facility], [facility] [address], [place], [address], [place]. tel:[phone] Jelani Peace MD. tel:[phone] erring Provider: Referral Self, USE FOR SELF REFERRALS. [facility], [address] [address], [place], [address], [place] tel:[phone] [place] [address] No Information Apr-2 0-202 0 Bebeto Cuba. [address] [facility], [address], [place], [place], [address], [place]. tel:[phone] Offic/outpt E&m Estab Low-mod [facility], [address] [address], [place], [address], [place] tel:[phone] [facility] No Information 8 Urszula Philip. [address] [facility] [address], [address], [place], [place], [address], [place]. tel:[phone] Referring Provider: Cedrick Seaman MD, [address] [facility] [address], [place], [address] . tel:[phone] [facility], [address] [address], [place], [place], [address], [place] tel:[phone] [facility] No Information 8 Urszula Philip. [address] [facility], [address], [place], [place], [address], [place]. tel:[phone] Referring Provider: Cedrick Seaman MD, [address] [facility] [address], [place], [address] . tel:[phone] Offic/outpt E&m Estab Mod-hi [address] [facility], [address] [address], [place], [address], [place] tel:[phone] [facility] No Information 8 Urszula Philip. [address] [facility] [address], [address], [place], [place], [address], [place]. tel:[phone] Referring Provider: Cedrick Seaman MD, [address] [facility] [address], [place], [address] . tel:[phone] [facility], [address] [address], [place], [address], [place] tel:[phone] [facility] Disease of pancreasDiarr hea, unspecified type 8 Urszula Philip. [address] [facility], [facility] [address], [place], [place], [address], [place]. tel:[phone] Jelani Peace MD. tel:[phone] [facility], [address] [address], [place], [address], [place] tel:[phone] [facility] Colon cancer screeningFami ly history of colon cancerDiverti culosis of colon without diverticuliti sPersonal history of colonic polypsEncount er for screening for malignant neoplasm of colonDvrtclos of lg int w/o perforation or abscess w/o bleedingFamil y history of malignant neoplasm of digestive organs 7 No Information Referring Provider: Jelani Peace MD D, [address] [facility] [address] [place], [address]. tel:[phone] [facility], [address] [address], [place], [address], [place] tel:[phone] [facility] Pancreatic abnormality 7 Urszula Philip. [address] [facility], [facility] [address], [place], [place], [address], [place]. tel:[phone] Jelani Peace MD. tel:[phone] [facility], [address] [address], [place], [address], [place] tel:[phone] [facility] Pancreatic lesion 7 Urszula Philip. [address] [facility], [facility] [address], [place], [place], [address], [place]. tel:[phone] Jelani Peace MD. tel:[phone] Offic/outpt E&m Estab Mod-hi [address] [facility], [address] [address], [place], [address], [place] tel:[phone] [facility] No Information 7 Urszula Philip. [facility] [facility] [address], [place], [address], [place]. tel:[phone] Referring Provider: Jelani Peace MD D, [address] , [place], [address]. tel:[phone] Offic/outpt E&m Estab Mod-hi [address] [facility], [address] [address], [place], [address], [place] tel:[phone] [facility] GI Symptoms or Concerns (chief complaint) Pancreatic atrophyDiarrh ea, unspecified typePersonal history of colonic polypsDietary counseling and surveillance 6 [facility]. [address] [facility], [facility] [address], [place], [address], . tel:[phone] Jelani Peace MD. tel:[phone] erring Provider: Referral Self, USE FOR SELF REFERRALS. [facility], [address] [address], [place], [address], [place] tel:[phone] [facility] Abn X-ray GI Tract 5 No Information Offic/outpt E&m Estab Minor [facility], [address] [address], [place], [address], [place] tel:[phone] [facility] Nausea AloneNausea AloneEpigastr ic Pain 4 No Information Referring Provider: Jelani Peace MD D, [address], [place], [address]. tel:[phone] Offic/outpt E&m Estab Mod-hi [address] [facility], [address] [address], [place], [address], [place] tel:[phone] [facility] Nausea Alone 3 No Information Referring Provider: Referral Self, USE FOR SELF REFERRALS. [facility], [address] [address], [place], [address], [place] tel:[phone] [facility] Polyp-intes/r ect/stom-unc BehGastric Polyp-benignG astric Polyp-benignE pigastric Pain 3 No Information Referring Provider: Jelani Peace MD D, [address], [place], [address]. tel:[phone] Offic/outpt E&m Estab Mod-hi [address] [facility], [address] [address], [place], [address], [place] tel:[phone] [facility] Patient feels she has an ulcer due to previou (chief complaint) Epigastric PainNausea Alone 3 Crystal Palomares. [address] [facility], [facility] [address], [place], [place], [address], [place]. tel:[phone] Referring Provider: Referral Self, USE FOR SELF REFERRALS. [facility], [address] [address], [place], [address], [place] tel:[phone] [facility] Diverticulosi s Of ColonColon Cancer ScreeningFami ly Hx GI Tract CancerColon Cancer ScreeningDive rticulosis Of ColonPersonal History Colon PolypsFamily Hx GI Tract Cancer 2 Rica Mustafa. [address] [facility], [facility] [address], [place], [place], [address], [place]. tel:[phone] Offic/outpt E&m Estab [facility], [address] [address], [place], [address], [place] tel:[phone] [facility] Anemia (chief complaint)Pa ncreatic pseudocyst (chief complaint)Di scuss colonoscopy (chief complaint) Pancreat Cyst/pseudocy stPersonal History Colon Polyps 2 No Information Offic/outpt E&m Estab Low-mod [facility], [address] [address], [place], [address], [place] tel:[phone] [facility] Pancreas lesion (chief complaint) Pancreat Cyst/pseudocy st 1 No Information Offic/outpt E&m Estab Low-mod [facility], [address] [address], [place], [address], [place] tel:[phone] [facility] Pancreas lesion (chief complaint) Pancreat Cyst/pseudocy st 0 No Information Referring Provider: Referral Self, USE FOR SELF REFERRALS. [facility], [address] [address], [place], [address], [place] tel:[phone] [facility] No Information 0 Urszula Philip. [address] [facility], [address], [place], [place], [address], [place]. tel:[phone] Offic/outpt E&m Estab Mod-hi [address] [facility], [address] [address], [place], [address], [place] tel:[phone] [facility] Diarrhea (chief complaint) Pancreat Cyst/pseudocy st [address] [facility], [address] [address], [place], [address], [place] tel:[phone] [facility] No Information 9 Urszula Philip. [address] [facility], [facility] [address], [place], [place], [address], [place]. tel:[phone] Offic/outpt E&m Estab Mod-hi [address] [facility], [address] [address], [place], [address], [place] tel:[phone] [facility] No Information 9 Urszula Philip. [address] [facility], [address], [place], [place], [address], [place]. tel:[phone] [facility], [address] [address], [place], [address], [place] tel:[phone] [facility] No Information 9 Urszula Philip. [address] [facility], [address], [place], [place], [address], [place]. tel:[phone] Referring Provider: Cedrick Seaman MD, [address] [facility] [address], [place], [address] . tel:[phone] Offic Cons New/estab Mod 40 [facility] [place] [facility] [place] [address] [address], [place], [address], tel:[phone] [facility] Abn X-ray GI Tract 0-200 8 No [...] (finding) GERD Immunizations Vaccine Date Status Comments SARS-COV-2 (COVID-19) vaccin e, mRNA, spike protein, LNP, preservative free, 50 mcg/0.5 mL dose administered Note: [facility] bi-direct ional interface ; Source: Other Registry Influenza, high-dose, split virus, trivalent, injectable, preservative free administered Note: [facility] bi-direct ional interface ; Source: Other Registry Respiratory syncytial virus (RSV), vaccine, recombinant, protein subunit RSV prefusion F, adjuvant reconstituted, 0.5 mL, preservative free administered Note: [facility] bi-direct ional interface ; Source: Other Registry SARS-COV-2 (COVID-19) vaccin e, mRNA, spike protein, LNP, preservative free, 50 mcg/0.5 mL dose administered Note: [facility] bi-direct ional interface ; Source: Other Registry SARS-COV-2 (COVID-19) vaccin e, mRNA, spike protein, LNP, bivalent, preservative free, 30 mcg/0.3 mL dose, sean-sucrose formulation administered Note: [facility] bi-direct ional interface ; Source: Other Registry Pneumococcal conjugate vacci ne 20-valent (PCV20), polysaccharide [id number] conjugate, adjuvant, preservative free administered Note: [facility] bi-direct ional interface ; Source: Other Registry Influenza, high-dose, split virus, quadrivalent, injectable, preservative free administered Note: [facility] bi-direct ional interface ; Source: Other Registry influenza, high-dose seasona l, quadrivalent, 0.7mL dose, preservative free administered Note: [facility] bi-direct ional interface ; Source: Other Registry SARS-COV-2 (COVID-19) vaccin e, mRNA, spike protein, LNP, bivalent, preservative free, 30 mcg/0.3 mL dose, sean-sucrose formulation administered Note: [facility] bi-direct ional interface ; [...] ional interface ; Source: Other Registry Influenza, high-dose, split virus, quadrivalent, injectable, preservative free administered Note: [facility] bi-direct ional interface ; Source: Other Registry influenza, high-dose seasona l, quadrivalent, 0.7mL dose, preservative free administered Note: [facility] bi-direct [...] [facility] bi-directional interface ; Source: Other Registry Influenza, high-dose, split virus, trivalent, injectable, preservative free administered Note: [facility] bi-direct ional interface ; Source: Other Registry zoster vaccine recombinant administered N ote: [facility] bi-directional interface ; Source: Other Registry influenza, high dose seasona l, preservative-free administered Note: [facility] bi-direct ional interface ; Source: Other Registry Influenza, high-dose, split virus, trivalent, injectable, preservative free administered Note: [facility] bi-direct ional interface ; Source: Other Registry influenza, high dose seasona l, preservative-free administered Note: [facility] bi-direct ional interface ; Source: Other Registry influenza virus vaccine, unspecified formulation administered Note: [facility] bi-di rectional interface ; Source: Other Registry Influenza, high-dose, split virus, trivalent, injectable, preservative free administered Note: [facility] bi-direct ional interface ; Source: Other Registry influenza, high dose seasona l, preservative-free administered Note: [facility] bi-direct ional interface ; Source: Other Registry Influenza, high-dose, split virus, trivalent, injectable, preservative free administered Note: [facility] bi-direct ional interface ; Source: Other Registry Prevnar 13 administered Note: [facility] bi-d irectional interface ; Source: Other Registry influenza, high dose seasona l, preservative-free administered Note: [facility] bi-direct ional interface ; Source: Other Registry Influenza, injectable, quadrivalent, preservative free, 3 yrs or older administered Source: Other Provid er Influenza, high-dose, split virus, trivalent, injectable, preservative free administered Note: [facility] bi-direct ional interface ; Source: Other Registry influenza, high dose seasona l, preservative-free administered Note: [facility] bi-direct ional interface ; Source: Other Registry Influenza, high-dose, split virus, trivalent, injectable, preservative free administered Note: [facility] bi-direct ional interface ; Source: Other Registry influenza, high dose seasona l, preservative-free administered Note: [facility] bi-direct ional interface ; Source: Other Registry tetanus toxoid, reduced diphtheria toxoid, and acellular pertussis vaccine, adsorbed administered Note: [facility] b i-directional interface ; Source: Other Registry Influenza, split virus, trivalent, injectable, contains preservative administered Note: [facility] bi-direct ional interface ; Source: Other Registry Influenza, seasonal, injectable administe red Note: [facility] bi- directional interface ; Source: Other Registry Pneumovax 23 administered Note: [facility] bi-d irectional interface ; Source: Other Registry Influenza, split virus, trivalent, injectable, contains preservative administered Note: [facility] bi-direct ional interface ; Source: Other Registry Influenza, seasonal, injectable administe red Note: [facility] bi- directional interface ; Source: Other Registry Novel [id number], all formulations administered Note: [facility] bi-direct ional interface ; Source: Other Registry zoster vaccine, live administered Note: [facility] bi-directional interface ; Source: Other Registry zoster vaccine, live administered Note: [facility] bi-directional interface ; Source: Other Registry tetanus and diphtheria toxoi ds, adsorbed, preservative free, for adult use (5 Lf of tetanus toxoid and 2 Lf of diphtheria toxoid) administered Note: [facility] C bi- directional interface ; Source: Other Registry Influenza, split virus, trivalent, injectable, contains preservative administered Note: [facility] bi-direct ional interface ; Source: Other Registry Influenza, seasonal, injectable administe red Note: [facility] bi- directional interface ; Source: Other Registry tetanus and diphtheria toxoi ds, adsorbed, preservative free, for adult use (2 Lf of tetanus toxoid and 2 Lf of diphtheria toxoid) administered Note: [facility]II C bi- directional interface ; Source: Other Registry influenza virus vaccine, unspecified formulation administered Note: [facility] bi-di rectional interface ; Source: Other Registry Payers Payer name Insurance type Covered green party ID Authoriza tion(s) Medicare NGS MB [id number] [facility] [id number] Social History Type Description Quantity Date Captured [...] education regardin g diet completed Referral Ordered: follow-up visit 6 Months Appointment date/timeframe: 6 Months ordered Referral Ordered: MRI Pancreas WITHOUT Contrast Appointment date/timeframe: -today ordered Referral Ordered: [facility] Appointment date/timeframe: 01/18/2018 ordered Referral Ordered: referred to [facility] Genetic consult ordered History Of Present Illness Encounter Date Complaint History Of Prese nt Illness GI Symptoms or Concerns Previous History Review Genie baker s a pleasant 78-year-old female, established patient, who I am seeing via virtual office visit in followup for her chronic diarrhea. This visit was changed to virtual as she called yesterday with feelings of sore throat headache and congestion and was concerned she may have COVID. She did test for COVID twice and both were negative. She wishes to discuss a couple month history of heartburn and abdominal discomfort today.In regards to the chronic diarrhea this has again significantly improved since her most recent office visit 06/09. 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 She does still have some intermittent diarrhea though is no longer having daily abdominal bloating gas and distention. She has not had any urgency or fecal incontinence though she described a several week history of both in November 2023. It is noted she continues on a low carb diet. Over the last several years she has had symptoms consistent with recurrent small intestinal bacterial overgrowth and with each course of antibiotics her symptoms do improve/resolve. She additionally notes that symptoms of diarrhea when present certainly worsen when she consumes a high carb diet and that she remains on a low-carb diet at this time. Is also noted that following the November 2023 office visit she did begin Citrucel and currently takes 2 capsules daily. 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 She additionally does have a history of thyroid disease and is on replacement therapy. She has previously had a pelvic surgery which was not effective at alleviating her fecal incontinence. Symptoms were not previously alleviated with biofeedback. A colonoscopy in January 2018 was unremarkable including random colon biopsies and evaluation of the terminal ileum. She had normal duodenal biopsies on an EGD in January 2018. She takes Creon regularly. An endoscopic ultrasound in January 2018 was notable for a normal-appearing pancreas itself. 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 She has a family history of pancreatic cancer in 2 siblings and remains concerned about her risk of pancreatic cancer.In regards to the gastroesophageal reflux disease most recent EGD 05/24/2012 was within normal Z-line. She chronically takes omeprazole once daily. She reports frequent heartburn in the afternoons and evenings occurring at least daily and has occasionally been taking an extra omeprazole. She avoids citrus based foods, tomato-based food, alcohol, and tobacco. She does not eat large meals prior to recumbency. She does not elevate the head of her bed. She denies odynophagia or dysphagia. She does describe epigastric abdominal pain and questions whether she could have an ulcer. She avoids NSAIDs. GI Symptoms or Concerns GI Symptoms or Concerns Previous History Review Genie baker s a pleasant 78-year-old female, established patient, who I am seeing in followup for her chronic diarrhea. 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 . She was in normal state of health up until recurrent profuse diarrhea and odiferous gas which began roughly 2 weeks ago. She notes each time this happened previously, her symptoms resolve with a course of antibiotics. She last was given and responded to a course of rifaximin for empiric treatment of potential small-intestine bacterial overgrowth was in 2019. She has a several week history of worsening diarrhea, urgency, and fecal incontinence. She notes here symptoms of diarrhea is worse as is bloating and gas when she consumes a high carb diet. She additionally does have a history of thyroid disease and is on replacement therapy. She has previously had a pelvic surgery which was not effective at alleviating her fecal incontinence. Symptoms were not previously alleviated with biofeedback. A colonoscopy in January 2018 was unremarkable including random colon biopsies and evaluation of the terminal ileum. She had normal duodenal biopsies on an EGD in January 2018. She takes Creon regularly. An endoscopic ultrasound in January 2018 was notable for a normal-appearing pancreas itself. 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 She has a family history of pancreatic cancer in 2 siblings and remains concerned about her risk of pancreatic cancerReview of medications is notable for magnesium as well as methylsulfonylmethane amongst others. GI Symptoms or Concerns GI Symptoms or [...]
[2025-03-30] VITALS (11 sets, daily range): BP systolic 137–179; BP diastolic 68–83; PULSE 55–64; RESP 13–24; TEMP 36.8; O2SAT 94–98; BMI 27.4
--- OUTSIDE RECORDS SUMMARY | 2025-03-30 01:22 | XMS_ITS | Clinical Summary ---
Author Organization [facility] Address [address] [place] [address] Care Team Providers Care Caseworker Name Role Phone Manohar Calvert MD Primary Care Provider [phone] Allergies Active Allergy Reactions Criticality Noted Date Comments Sulfa Antibiotics Hives 07/07/2013 Medications LOSARTAN POTASSIUM PO Take 50 mg by mouth 2 times daily (Takes 0.5 x 100mg tablet = 50mg dose) Active Potassium Chloride (K-TABS PO) Take 20 mEq by mouth daily (Takes 2 x 10mEq tablet = 20mEq dose) Active latanoprost (XALATAN) 0.005 % ophthalmic solution Place 1 drop into both eyes At Bedtime Active Multiple Vitamins-Minera ls (MULTIVITAL PO) Take 1 tablet by mouth daily Active Methylsulfonylm ethane (MSM PO) Take 2,000 mg by mouth 2 times daily Active MAGNESIUM OXIDE PO Take 400 mg by mouth daily Active Ascorbic Acid (VITAMIN C PO) Take 1,000 mg by mouth 2 times daily Active triamterene-hyd rochlorothiazid e (DYAZIDE) 37.5-25 MG per capsule Take 1 capsule by mouth daily 4 Active Levothyroxine Sodium (SYNTHROID PO) Take 100 mcg by mouth five times a week 4 days/week Active VITAMIN D, CHOLECALCIFEROL , PO Take 5,000 Units by mouth every morning Active Sheldon-3 Fatty Acids (FISH OIL PO) Take 2 capsules by mouth daily Active Levothyroxine Sodium (SYNTHROID PO) Take 88 mcg by mouth twice a week 3 days/week Active Probiotic Product (PROBIOTIC PO) Take 1 tablet by mouth daily Active CREON 00806 units CPEP per EC capsule 9 Active ferrous sulfate 140 (45 Fe) MG TBCR CR tablet Take 140 mg by mouth daily Active nitroFURantoin macrocrystal-mo nohydrate (MACROBID) 100 MG capsuleIndicati ons:Frequent UTI Take 1 capsule (100 mg) by mouth 2 times daily 14 capsule 1 Active VITAMIN E PO Active amLODIPine (NORVASC) 2.5 MG tablet TAKE 1 TABLET (2.5 MG) BY MOUTH ONCE DAILY. 1 Active CRANBERRY PO Active METAMUCIL FIBER PO Active Multiple Vitamins-Minera ls (ZINC PO) Active estradiol (ESTRACE) 0.1 MG/GM vaginal creamIndication s:Vaginal atrophy Use 1 gram vaginally at bedtime three times a week, use finger for application 42.5 g 2 Active Active Problems Problem Noted Date Diagnosed Date Cervical cancer screening 01/29/2017 Overview (03/27/2021): 01/19/17 pt meets guidelines for discontinuing paps, [...] Pelvic prolapse 09/14/2016 Uterus, adenomyosis 07/10/2013 Immunizations Immunization Administration Dates Next Due COVID-19 MONOVALENT 12+ (Pfizer) 06/27/2020,05/18 DTaP, Unspecified 12/09/2011 Flu, Unspecified 01/15/2018,04/03/1996 Influenza (H1N1) 05/28/2009 Influenza (High Dose) Trival ent,PF (Fluzone) 12/28/2018,02/24/2018,03/05/2017,2015,03/22/2015,01/30/2014 Influenza (IIV3) PF 02/14/2018, 1,05/21/2010,2002 Influenza Vaccine 65+ (Fluzone HD) 01/13/2021 Mantoux Tuberculin Skin Test 01/02/2019,12/27/19 Pneumo Conj 13-V (2010&after) 01/21/2016 Pneumococcal 23 valent 01/15/2011 TD,PF 7+ (Tenivac) 03/30/2008 TDAP (Adacel,Boostrix) 12/09/2011 Td (Adult), Adsorbed 04/03/1996 Zoster recombinant adjuvante d (Shingrix) 05/29/2019,12/28/2018 Zoster vaccine, live 02/01/2009,05/17/2008 Family History [...] School Help Needed Not on file 02/07 Comments No Sex and Gender Information Value Date Recorded Sex Assigned at Female 11/14/2020 7:51 AM CDT 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 Gender Identity Not on file Sexual Orientation Not on file Last Filed Vital Signs Vital Sign Reading Time Taken Comments Blood Pressure 114/64 03/20/2021 3:31 PM CDT Pulse 68 03/20/2021 3:31 PM CDT Temperature 36.7 C (98.1 F) 09/16/2016 11:52 AM CDT Respiratory Rate 16 09/16/2016 11:52 AM CDT Oxygen Saturation 97% 09/16/2016 11:52 AM CDT Inhaled Oxygen Concentration - - Weight 61.7 kg (136 lb) 03/20/2021 3:31 PM CDT Height 156.8 cm (5' 1.75) 03/20/2021 3:31 PM CD T Body Mass Index 25.08 03/20/2021 3:31 PM CDT Plan of Treatment Not on file Medical Devices Implanted Type Area Stamps Or Coins Salesperson Device Identifier Shelf Expiration Date Model / Serial / Lot Mesh Sling Y Shape Restorelle [id number] [id number] Implanted:Qty: 1 on 09/14/2016 by Sona Calderon MD at [facility] Mesh N/A: Sacrum COLOPLAST 03/30/2019 [id number] / / [id number] Insurance MEDICARE COMMERCIAL Advance Directives For more information, please contact: [phone] * Full Code (Latest Code Status on File) Date Activated Date Inactivated Comments 09/15/2016 1:09 PM * Full Code Date Activated Date Inactivated Comments 09/14/2016 6:39 PM 09/15/2016 1:09 PM * Full Code Date Activated Date Inactivated Comments 07/10/2013 9:27 AM 07/11/2013 5:46 PM Care Teams Caseworker Relationship Specialty Start Date End Date Manohar Calvert MD PCP - General Family Practice 01/30/19
--- OUTSIDE RECORDS SUMMARY | 2025-03-30 01:22 | XMS_ITS | Encounter Summary ---
Author Organization [facility] Address [address] [place] [address]. [place] [address] Care Team Providers Care Winding Inspector Name Role Phone Manohar Calvert MD Primary Care Provider [phone] Fabian Hercules MD Unavailable [phone] HermantaChitra rubi APRN COMMUTATOR OPERATOR Unavailable [phone] Fabian Hercules MD Unavailable MesChitra nicole APRN COMMUTATOR OPERATOR Unavailable Reason for Visit * Reason Onset Date Comments MyChart Communication 08/11/2020 Encounter Details Date Type Department Care Team (Latest Contact Info) Description 08/11/2020 [facility] Medical Advice [facility] [address] [address] [place] [address] [place], [place] [id number] MyChart Communication Social History Tobacco Use Types Packs/Day Years Used Date Smoking Tobacco: Never Smokeless Tobacco: Never Alcohol Use Standard Drinks/Week Comments Yes 0 (1 standard drink = 0.6 oz pur e alcohol) seldom PHQ-2 Answer Date Recorded PHQ-2 Score 0 08/06/2020 Comments No Sex and Gender Information Value Date Recorded Sex Assigned at Female 11/14/2020 7:51 AM CDT 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 Gender Identity Not on file Sexual Orientation [...] documented as of this encounter Care Teams Winding Inspector Relationship Specialty Start Date End Date Manohar Calvert MD PCP - General Family Practice 01/30/19 [place] [address] [place] [address] Assigned OBGYN Provider 03/08/20 Chitra Diaz APRN COMMUTATOR OPERATOR [address] [place] [address] Assigned OBGYN Provider 11/29/20 [place] [address] [place] [address] Assigned OBGYN Provider 03/23/21 Chitra Diaz APRN COMMUTATOR OPERATOR [address] [facility] [address] [place] [address] Assigned OBGYN Provider 06/08/21 documented as of this encounter
--- OUTSIDE RECORDS SUMMARY | 2025-03-30 01:22 | XMS_ITS | Encounter Summary ---
Author Organization [facility] Address [facility] [place] [address] Care Team Providers Care Software Development Manager Name Role Phone Manohar Calvert MD Primary Care Provider Faiban Hercules MD Unavailable Chitra Diaz APRN POWERED BRIDGE SPECIALIST Unavailable [phone] Fabian Hercules MD Unavailable [phone] Chitra Diaz APRN POWERED BRIDGE SPECIALIST Unavailable Reason for Visit * Reason Onset Date Comments MyChart Communication 09/05/2020 Encounter Details Date Type Department Care Team (Latest Contact Info) Description 09/05/2020 [facility] Medical Advice [facility] [place] [address] [place] [address] [address] [place] [address] Chitra Diaz APRN POWERED BRIDGE SPECIALIST [address] [facility] [address] [place], [place] [id number] MyChart Communication Social History Tobacco Use Types [...] AM CDT 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 Chitra Styles RN on 09/06/2020 at 9:39 AM documented in this encounter Plan of Treatment Not on file documented as of this encounter Visit Diagnoses Not on filedocumented in this encounter Additional Health Concerns Assessment Noted Time PHQ-9 Depression Total Score: 1 03/14/20 20 3:25 PM CDT documented as of this encounter Care Teams Software Development Manager Relationship Specialty Start Date End Date Manohar Calvert MD PCP - General Family Practice 01/30/19 [place] [address] [place] [address] Assigned OBGYN Provider 03/08/20 Chitra Diaz APRN CNP [address] [address] Assigned OBGYN Provider 11/29/20 [place] [address] [place] [address] Assigned OBGYN Provider 03/23/21 Chitra Diaz APRN [facility] [address] [place] [address] [place] [address] Assigned OBGYN Provider 06/08/21 documented as of this encounter
--- OUTSIDE RECORDS SUMMARY | 2025-03-30 01:22 | XMS_ITS | Continuity of Care Document ---
Author Organization [place] [facility] Address [address] [facility] [facility] [address] [place] [address] Assessment Encounter Date Assessment Date Assessment LastModified by Organization Details LastModified Time 03/12/2025 03/12/2025 ASSESSMENT: Patient is a good candidate for conservative care and the prognosis is for a favorable outcome that achieves the patients' goals. We discussed etiology, activity modifications, home care, and other treatment options. Initially, it is recommended that the patient receive in-office treatment 1 times per week for 8 weeks at which time a re-evaluation will be performed to determine an appropriate change in plan. Initially, treatment will focus on joint manipulation to restore range of motion and reduce pain. We will slowly progress to therapeutic exercises and activities to improve function, strength, and stability may also be used as warranted. If the patient is not responding as expected, more invasive procedures will be discussed along with a referral. All considerations above were discussed with the patient and questions answered to satisfaction. If the patient should have any additional questions, or should the condition evolve or worsen, the patient should not hesitate to contact our office. ecram Not available 03/12/2025 19:20:45 Plan of Treatment Reminders Order Date Submit Date Provider Last Modified By Organization Details Last Modified Time Details Appointments None record ed. Lab None record ed. Referral None record ed. Procedures None record ed. Surgeries None record ed. Imaging None record ed. Medication Orders None record ed. Patient TargetsNo targets recorded. Patient InstructionsNo instructions recorded. Reason for Referral None Reported. Problems Name Problem SNOMED Code Status Onset Date Resolution Date Notes Provider Name and Address Organization Details Recorded Time Neck pain 87984799 Active 2023 Félix Benz DC [address] [facility] [address] [facility], [facility] [place], [address], [place] [facility] 4 19:01:35 Lumbar segmental dysfunction 956681068 Active 2023 Ed Padgett Paoladilip ANGÉLICA [address] [facility], [place], [address], [place] [facility] 5 11:27:59 Thoracic segmental dysfunction 850593687 Active 2023 Ed Padgett PaoladilipANGÉLICA [address] [facility], [facility], [address], [place] [facility] 5 11:27:59 Cervical segmental dysfunction 852468448 Active 2023 Félix Benz CA [address] [facility], [facility], [address], [place] [facility] 4 19:01:35 Lesion of lumbar spine 977176296 Active 2023 Félix Benz CA [address] [facility], [facility] [place], [address], [place] [facility] 4 19:01:35 Low back pain 994221772 Active 2023 Ed Dayron Garcia DC [address] [facility], [facility] [place], [address], [place] [facility] 11:27:59 Somatic dysfunction of sacral spine 829704501 Active 2023 Ed Garcia DC [address] [facility], [facility], [address], [place] [facility] 11:27:59 Problem Notes None recorded. Procedures Surgical History Date Name Laterality Status Provider Name and Address Organization Details Recorded Time 5 45833: Spinal manipulation , 3 to 4 regions completed Ed Garcia DC [address] [facility], [place], [address], [place] [facility] 03/23/2025 11:54:01 5 24018: Spinal manipulation , 3 to 4 regions completed Ed Garcia DC [address] [facility], [place], [address], [place] [facility] 03/16/2025 19:08:19 5 79851: Spinal manipulation , 3 to 4 regions completed dE Garcia DC [address] [facility], [place], [address], [place] [facility] 03/12/2025 19:20:45 5 57047: Spinal manipulation , 3 to 4 regions completed Ed Garcia DC [address] [facility], [place], [address], [facility] - [facility] 02/26/2025 11:27:58 5 59217: Spinal manipulation , 3 to 4 regions completed Ed Garcia DC [address] [facility], [place], [address], [facility] - [facility] 01/22/2025 16:32:35 5 76595: Spinal manipulation , 3 to 4 regions completed Ed Garcia DC [address] [facility], [place], [address], [facility] - [facility] 01/19/2025 12:20:14 5 26548: Spinal manipulation , 3 to 4 regions completed Félix Benz DC [address] [facility], [place], [address], [facility] - [facility] 01/18/2025 13:58:37 5 94824: Spinal manipulation , 3 to 4 regions completed Félix Benz DC [address] [facility], [place], [address], [facility] - [facility] 01/03/2025 17:13:52 5 17322: Spinal manipulation , 3 to 4 regions completed Félix Benz DC [address] [facility], [place], [address], [facility] - [facility] 12/08/2024 08:08:05 5 41916: Spinal manipulation , 3 to 4 regions completed Ed Garcia DC [address] [facility], [place], [address], [facility] 11/24/2024 18:16:02 5 41669: Spinal manipulation , 3 to 4 regions completed Félix Benz DC [address] [facility], [place], [address], [facility] 11/19/2024 15:41:26 5 07313: Spinal manipulation , 3 to 4 regions completed Félix Benz DC [address] [facility] [address], [place], [address], [facility] 11/19/2024 15:47:58 5 14384: Spinal manipulation , 3 to 4 regions completed Ed Garcia DC [address] [facility] [address], [place], [address], [facility] 11/10/2024 18:39:41 5 31508: Spinal manipulation , 3 to 4 regions completed Ed Garcia DC [address] [facility], [place], [address], [facility] 11/06/2024 16:43:37 5 51924: Spinal manipulation , 3 to 4 regions completed Ed Garcia DC [address] [facility], [place], [address], [facility] 10/23/2024 18:27:03 5 95045: Spinal manipulation , 3 to 4 regions completed Ed Garcia DC [address] [facility] [address], [place], [address], [facility] 09/22/2024 09:53:09 5 58077: Spinal manipulation , 3 to 4 regions completed Ed Garcia DC [address] [facility], [place], [address], [facility] 09/15/2024 10:48:57 5 95547: Spinal manipulation , 3 to 4 regions completed Félix Benz DC [address] [facility] [address], [place], [address], [facility] 08/30/2024 19:58:33 5 98060: Spinal manipulation , 3 to 4 regions completed Ed Garcia DC [address] [facility], [place], [address], [facility] 08/18/2024 12:03:44 5 68778: Spinal manipulation , 3 to 4 regions completed Ed Garcia DC [address] [facility], [place], [address], [facility] 08/14/2024 17:12:12 5 71091: Spinal manipulation , 3 to 4 regions completed Ed Garcia DC [address] [facility], [place], [address], [facility] 07/28/2024 11:54:19 5 18499: Spinal manipulation , 3 to 4 regions completed Aj Kelsey DC [address] [facility], [place], [address], [facility] 07/27/2024 10:25:50 5 70992: Spinal manipulation , 3 to 4 regions completed Félix Benz DC [address] [facility], [place], [address], [facility] 07/10/2024 19:14:45 5 94245: Spinal manipulation , 3 to 4 regions completed Ed Garcia DC [address] [facility], [place], [address], [facility] 06/19/2024 18:10:12 5 64873: Spinal manipulation , 3 to 4 regions completed Ed Garcia DC [address] [facility], [place], [address], [facility] 06/02/2024 12:08:47 5 89613: Spinal manipulation , 3 to 4 regions completed Ed Garcia DC [address] [facility], [place], [address], [facility] 05/22/2024 17:33:22 4 21114: Spinal manipulation , 3 to 4 regions completed [place], DC [address] [facility] [address], [place], [address], [facility] 05/15/2024 14:34:53 4 03145: Spinal manipulation , 3 to 4 regions completed Ed Padgett [place], DC [address], [place], [address], [facility] 05/12/2024 17:25:34 4 49333: Spinal manipulation , 3 to 4 regions completed Ed Padgett [place], DC [address] [facility] [address], [place], [address], [facility] 04/28/2024 13:23:51 4 03410: Spinal manipulation , 3 to 4 regions completed [place], DC [address] [facility], [place], [address], [facility] 04/24/2024 18:56:55 4 94070: Spinal manipulation , 3 to 4 regions completed [place], DC [address] [facility] [address], [place], [address], [facility] 04/19/2024 19:01:54 Imaging Results None recorded. Procedure Notes None recorded. Medical Equipment None Reported. Allergies Allergen ID Allergen Name Allergen Category Reaction Reaction Severity Criticality Documentation Date Start Date Code Code System Note Provider Name and Address Organization Details Recorded Time 4307 atorvasta tin medicatio n other Not available Not available 03/12/20252023 74105 RxNorm Brain fog Not Available [employer] - prod 5 16:58:08 4308 Substance with sulfonami de structure and antibacte rial mechanism of action (substanc e) medicatio n hives Not available Not available 03/12/20252006 91658 8003 SNOMED Not Available [employer] - prod 5 16:58:08 Medications Name Sig Start Date Stop Date Status Note LastModified by Organization Details LastModified Time losartan 50 mg tablet active Not Available Not Available No t Available amoxicillin 500 mg capsule TAKE 4 CAPSULES BY MOUTH 1 TO 2 HOURS BEFORE DENTAL APPOINTMENT active Not Available Not Available Not Available atorvastatin 20 mg tablet active Not Available Not Available Not Available metronidazol e 0.75 % (37.5 mg/5 gram) vaginal gel INSERT ONE APPLICATORF UL VAGINALLY AT BEDTIME FOR 7 DAYS active Not Available Not Available N ot Available Synthroid 100 mcg tablet active Not Available Not Available Not Available clotrimazole 1 % vaginal cream INSERT ONE APPLICATORF UL VAGINALLY AT BEDTIME EVERY NIGHT FOR 7 DAYS active Not Available Not Available N ot Available amlodipine 2.5 mg tablet active Not Available Not Available Not Available metronidazol e 500 mg tablet TAKE 1 TABLET BY MOUTH TWICE DAILY FOR 7 DAYS active Not Available Not Available No t Available triamterene 37.5 mg-hydrochlo rothiazide 25 mg capsule active Not Available Not Available Not Available Synthroid 88 mcg tablet active Not Available Not Available N ot Available omeprazole 20 mg capsule,monster yed release TAKE 1 CAPSULE BY MOUTH TWICE DAILY 30 MINUTES TO 1 HOUR BEFORE A MEAL active Not Available Not Available No t Available estradiol 0.01% (0.1 mg/gram) vaginal cream USE VAGINALLY 2 TIMES EVERY WEEK DIRECTED active Not Available Not Available No t Available timolol maleate 0.5 % eye drops INSTILL 1 DROP IN BOTH EYES IN THE MORNING active Not Available Not Available No t Available amoxicillin 875 mg-potassium clavulanate 125 mg tablet TAKE 1 TABLET BY MOUTH TWICE DAILY active Not Available Not Available No t Available ezetimibe 10 mg tablet active Not Available Not Available No t Available potassium chloride ER 10 mEq tablet,exten ded release(part /cryst) active Not Available Not Available Not Available nitrofuranto in monohydrate/ macrocrystal s 100 mg capsule TAKE 1 CAPSULE BY MOUTH EVERY 12 HOURS WITH FOOD FOR 7 DAYS active Not Available Not Available N ot Available Xifaxan 550 mg tablet TAKE 1 TABLET BY MOUTH THREE TIMES DAILY active Not Available Not Available Not Available Creon 36,000 unit-114,000 unit-180,000 unit capsule,monster yed release active Not Available Not Available Not Available Vyzulta 0.024 % eye drops INSTILL 1 DROP IN EACH EYE AT BEDTIME active Not Available Not Available No t Available Vitals None Recorded Social History None recorded. Functional Status None recorded. Mental Status None recorded. Family History Nothing Reported. Medical History No medical history recorded. Gynecological HistoryNo gynecological history recorded. Obstetrics History GPAL:G 0 P 0 0 0 0 Past Encounters Encounter ID Performer Location Encounter Start Date Encounter Closed Date Diagnosis/Indication Diagnosis SNOMED-CT Code Diagnosis ICD10 Code Diagnosis IMO Codes Diagnosis Note [id number] Ed Garcia DC [facility] [address] [facility] [address] [place] [address] 02/26/2025 10:32:34 02/26/2025 12:23:06 Lumbar segmental dysfunction 101220501 M99.03 Low back pain 307450284 M54.50 Somatic dy sfunction of sacral spine 106265241 M99.04 Thoracic s egmental dysfunction 000323735 M99.02 [id number] Ed Garcia DC [address] [place] [address] 03/12/2025 16:56:52 03/14/2025 11:29:46 Lumbar segmental dysfunction 755850930 M99.03 Low back pain 038023183 M54.50 Somatic dy sfunction of sacral spine 558663479 M99.04 Thoracic s egmental dysfunction 794376819 M99.02 Health Concerns Section Related Observation LastModified by Organization Detai ls LastModified Time None Recorded Concern Status LastModified by Organization Details LastModified Time None Recorded Payers Encounter Date Sequence Insurance Name Policy Number Policy Hameed Covered Member ID Hameed Member ID Guarantor Name 03/12/2025 2 WEB TPA (MEDICARE SUPPLEMENT) Genie Mccannkuhsaleem [id number] Genie Ramykuhl 03/12/2025 1 [place] [employer] Genie Tsai Royahmkuhl [id number] Genie Royaluiskuhl Notes Date Note Type Note Provider Name and Address Organization Details Recorded Time 03/12/2025 text/html HPI - Lumbar SpineReported by PatientHPIFor location, patient reportsleft. For quality, patient reportsaching. For severity, patient reportsmoderate. For timing, patient reportsmorning. For aggravating factors, patient reportswalking,lift ing,carrying, andtwisting. For alleviating factors, patient reportsrest. Ed Garcia DC [address] [facility], [place], [address], [facility] - [facility] 03/12/2025 19:22:02 OBGyn Episode No OBEpisode recorded.
--- OUTSIDE RECORDS SUMMARY | 2025-03-30 01:22 | XMS_ITS | Patient Health Record ---
Author Organization [facility] Address [address] [place] [address] Care Team Providers Care Slime Plant Operator Name Role Phone Jelani Peace Primary Care Provider Unavailab RAFAEL Elizabeth Unavailable [phone] None, None Unavailable Unavailable Allergies Allergen (clinical drug ingredient) Drug/Non Drug Allergy documented on EMR Reaction Allergy Type Onset Date Status Substance with sulfonamide structure and antibacterial mechanism of action (substance) SULFA (uncoded) Unknown Allergy Active Reason For Referral No Information Medications Medication SIG (Take, Route, Fr equency, Duration) Notes Start Date End Date Status Losartan Potassium A ctive Triamterene-HCTZ Act adelfo Omeprazole Active Synthroid Active Testosterone Active Estradiol Acetate Ac tive Problems Problem Type SNOMED Code ICD Code Onset Dates Problem Status W/U Status Risk Notes Problem 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 Problem Osteoarthritis of knee (245266236) Bilateral primary osteoarthritis of knee (M17.0) Active confirmed Problem Osteoarthritis of knee (994258644) Osteoarthritis of knee, unspecified (M17.9) Active confirmed Problem Localized, secondary osteoarthritis of the shoulder region (255328102) Secondary osteoarthritis, 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) Active confirmed Problem Bilateral tinnitus (1567883929165) Tinnitus of both ears (H93.13) Active confirmed Problem Sensorineural hearing loss (85642988) SNHL (sensory-neural hearing loss), asymmetrical (H90.5) Active confirmed Problem Gastroesophageal reflux disease (087371798) GERD (gastroesophagea l reflux disease) (K21.9) Active confirmed Problem Hypertension (37717022) HTN (hypertension) (I10) Active confirmed Problem Sudden hearing loss (09407379) Sudden right hearing loss (H91.21) Active confirmed Problem Glaucoma (79039557) Glaucoma (H40.9) Active con firmed Problem Temporomandibular joint syndrome (49180645) TMJ (temporomandibul ar joint syndrome) (M26.609) Active confirmed the TMJ strain could cause some of her symptoms . Problem Tinnitus (60339576) Pulsatile tinnitus of right ear (H93.A1) Active confirmed Problem Sensorineural hearing loss (SNHL) of right ear with restricted hearing of left ear (H90.A21) Active confirmed Plan Of Treatment No Information Insurance Providers Payer Name Payer Address Payer Phone Subscriber Number Group Number Insured Name Patient Relationship to Insured Coverage Start Date Coverage End Date MEDICARE [address] [place] [address] [id number] Vishal Fish Self - patient is the insured [facility] [address] [place], [place] [id number] Vishal Fish Self - patient is the insured Medical (General) History Medical History History ICD Code HNT GERD Glaucoma Osteoarthritis of knees and shoulder HTN (hypertension) GERD (gastroesophageal reflux disease) Glaucoma associated with ocular disorder Glaucoma Paralyzed hemidiaphragm Osteoarthritis of both knees Osteoarthritis of shoulder Surgical History Surgery Date(Month/Year) R knee arthroscopy and replacement Cholecystectomy L shoulder arthroscopy gall bladder transvaginal taping
--- OUTSIDE RECORDS SUMMARY | 2025-03-30 01:22 | XMS_ITS | Patient Health Record ---
Author Organization [facility] Address [address] [address] Care Team Providers Care Bag Bundler Name Role Phone None, No PCP Primary Care Provider UnavailFabian Hoffmann Unavailable [phone] Kenia Harrington Unavailable [phone] Sandrita Liu Unavailable [phone] Allergies Allergen (clinical drug ingredient) Drug/Non Drug Allergy documented on EMR Reaction Allergy Type Onset Date Status Substance with sulfonamide structure and antibacterial mechanism of action (substance) Sulfa Antibiotics Unknown Drug Allergy Active Results Component Value Reference Range Notes MVP (Multiplex Vaginitis) (I H) Reviewed date:05/23/2024 08:40:00 AM Interpretation: Performing Lab: Notes/Report: Counterintelligence Analyst: [email or web address] Lot: [id number], Expiry: 2025-02 APV Xpert ([id number]), [place] Urinalysis, Routine () Reviewed date:05/23/2024 10:36:47 AM Interpretation: Performing Lab: Notes/Report: Urine Color Bright Yellow Yellow - [place]aly Appearance Clear Clear - Glucose Neg Bilirubin Neg Ketone Neg Specific Lyndora 1.010 Blood Neg pH 6.0 Protein Neg Urobilinogen 0.2 Nitrite neg Leukocytes Neg CULTURE, URINE, ROUTINE Reviewed date:05/25/2024 09:21:27 AM Interpretation: Performing Lab:[place], [facility] [id number] [facility]rx[facility] Willam Roberts Notes/Report: CULTURE, URINE, ROUTINE SEE NOTE CULTURE, URINE, ROUTINE Micro Number: [id number] Test Status: Final Specimen Source: Urine, clean catch Specimen Quality: Adequate Result: No Growth Reason For Referral No Information Medications Medication SIG (Take, Route, Frequency, Duration) Notes Start Date End Date Status Potassium Chloride Vivien ER 10 MEQ Oral; Duration: 90 Days Active Synthroid 100 MCG 1 tablet in the morning on an empty stomach Orally Once a day Active Creon 55198-317555 UNIT Oral; Duration: 30 Days Active Triamterene-HCTZ 37.5-25 MG Oral; Duration: 90 Days Active Ondansetron HCl 4 MG TAKE 1 TABLET BY MOUTH EVERY 6 HOURS Oral; Duration: 5 Days Not-Taking Cephalexin 500 MG Oral; Duration: 7 Days Not-Taking Meclizine HCl 25 MG Oral; Duration: 5 Days Not-Taking Zinc 50 mg Active Ferrous Sulfate 325 mg Acti ve Probiotic Active Cranberry Active Vitamin E 160 mg Active Fish Oil Active MSM 1000 MG as directed Orally Active Vitamin D 5000 ICR Active Multivitamin - 1 tablet Orally Once a day Active Omeprazole 20 MG Oral; Duration: 90 Days Active Magnesium 400 MG as directed Orally 2000 x twice a day Active metroNIDAZOLE 500 MG 1 tablet Orally Twice a day; Duration: 7 days 03/29/2024 Not-Taking Omeprazole 20 MG Oral; Duration: 90 Days Active Vitamin C 1000 mg Not-Taking Nitrofurantoin Monohyd Macro 100 MG 1 capsule with food Orally every 12 hrs; Duration: 7 day(s) 03/31/2024 Not-Taking Latanoprost 0.005 % Ophthalmic; Duration: 108 Days Not-Taking Losartan Potassium 50 MG Oral; Duration: 90 Days Active metroNIDAZOLE 0.75 % INSERT ONE APPLICATORFUL VAGINALLY AT BEDTIME FOR 7 DAYS Vaginal; Duration: 5 Days Not-Taking Estradiol 0.1 MG/GM as directed Vaginal Two times a Week; Duration: 30 days Active Potassium Chloride Vivien ER 10 MEQ Oral; Duration: 90 Days Active Synthroid 100 MCG Oral; Duration: 87 Days Active Social History Tobacco Use: Social History Observation Description Date Details (start date - stop date) Never Smoker NA - NA Sexual History Question Answer Notes Had sex in the past 12 months (vaginal, oral, or anal)? No Have you ever had a Sexually transmitted disease ? No Tobacco Control (Standard) Question Answer Notes Tobacco use: Nonsmoker Problems Problem Type SNOMED Code ICD Code Onset Dates Problem Status W/U Status Risk Notes Problem Annual wellness visit (9453172943340 05) Encounter for Medicare annual wellness exam (Z00.00) Active confirmed Vital Signs Blood pressure diastolic 72 mm Hg 05/22/2024 Height 60.7 in 05/22/2024 Blood pressure systolic 118 mm Hg 05/22/2024 Weight 153.8 lbs 05/22/2024 BMI 29.35 kg/m2 05/22/2024 Encounters Encounter Location Date Provider Diagnosis [address] [id number] 05/22/2024 Sandrita [place] Vaginitis N76.0 [facility] [id number] [place] [address] 05/22/2024 Sandrita [place] Vaginal irritation N89.8 and Urinary symptom or sign R39.[address] [address] 05/22/2024 Sandrita Noe [address] [id number] 04/03/2024 Kenia Harrington [address] [id number] 03/31/2024 Kenia Harrington Assessments Encounter Date Diagnosis (ICD Code) Assessment Notes Treatment Notes Treatment Clinical Notes Section Notes 05/22/2024 Vaginal irritation (ICD-10 - N89.8) 05/22/2024 Urinary symptom or sign (ICD-10 - R39.9) 05/22/2024 Vaginitis (ICD-10 - N76.0) 05/22/2024 Other Multiplex Vagin al Panel swab collected & ordered today. Discussed the results will be available on the [employer] portal and/or telephone call within 24 hours and that if prescription treatment is necessary it will be oral or vaginal depending on results and patient preference (we discussed trying vaginal clindamycin this time). UA negative for acute infection but will await culture and go from there. Follow-up as needed Plan Of Treatment Pending Test Test Name Order Date MAMMOGRAM, SCREENING 05/04/2023 Insurance Providers Payer Name Payer Address Payer Phone Subscriber Number Group Number Insured Name Patient Relationship to Insured Coverage Start Date Coverage End Date Medicare (Ins. Bill) [address] [place], [place] [id number] Vishal Fish Self - patient is the insured [facility] [address] [address] [place], [place] [id number] Vishal Fish Self - patient is the insured Medical (General) History Medical History History ICD Code anemia high cholesterol high blood pressure gall bladder disease bladder infections Arthritis migraines Pneumonia thyroid problems Surgical History Surgery Date(Month/Year) Gallbladder 1991 Meeks's Neuroma both feet 1995 Transvaginal taping 2004 Right knee -arthroscopy 1999 & 2001 Right Knee replacement 01/2010 Left Knee replacement 2011 Arthroscopy left shoulder 06/2010 Right wrist carpal tunnel 2014 Left wrist carpal tunnel 10/2014 Left & right Cataract & 11/2011 Hysterectomy 06/2013 Pelvic Floor, Ventral rectopexy, sacrope xy 2016 Hospitalization History Reason Date(Month/Year) Kanwal Alexa
--- OUTSIDE RECORDS SUMMARY | 2025-03-30 01:22 | XMS_ITS | Continuity of Care Document ---
Author Organization [facility] Address [address] [place] [address] Assessment Encounter Date Assessment Date Assessment LastModified by Organization Details LastModified Time 03/23/2025 03/23/2025 ASSESSMENT: Patient is a good candidate for [...] to contact our office. ecram Not available 03/23/2025 11:54:01 Plan of Treatment Reminders Order Date Submit [...] Address Organization Details Recorded Time Neck pain 02203988 Active 2023 Félix Benz DC [address], [facility] [place] [place], [address], [place] [facility] 4 19:01:35 Lumbar segmental dysfunction 776617692 Active 2023 dE Padgett Paoladilip ANGÉLICA [address], [place], [address], [place] [facility] 5 11:27:59 Thoracic segmental dysfunction 105138810 Active 2023 Ed Padgett PaoladilipANGÉLICA [address], [facility] [place], [address], [place] [facility] 5 11:27:59 Cervical segmental dysfunction 377762774 Active 2023 Félix Benz HI [address], [facility] [place], [address], [place] [facility] 4 19:01:35 Lesion of lumbar spine 539862418 Active 2023 Félix Benz HI [address], [facility] [place], [address], [place] [facility] 4 19:01:35 Low back pain 374097111 Active 2023 Ed Dayron Garcia DC [address], [place], [address], [place] [facility] 11:27:59 Somatic dysfunction of sacral spine 642187711 Active 2023 Ed Garcia DC [address], [facility] [place], [address], [place] [facility] 11:27:59 Problem Notes None recorded. Procedures Surgical History Date Name Laterality Status Provider Name and Address Organization Details Recorded Time 5 39969: Spinal manipulation , 3 to 4 regions completed Ed Garcia DC [address], [place], [address], [place] [facility] 03/23/2025 11:54:01 5 26141: Spinal manipulation , 3 to 4 regions completed Ed Garcia DC [address], [place], [address], [place] [facility] 03/16/2025 19:08:19 5 39489: Spinal manipulation , 3 to 4 regions completed Ed Garcia DC [address], [place], [address], [place] [facility] 03/12/2025 19:20:45 5 52630: Spinal manipulation , 3 to 4 regions completed Ed Garcia DC [address], [place], [address], [facility] [place] [facility] 02/26/2025 11:27:58 5 14756: Spinal manipulation , 3 to 4 regions completed Ed Garcia DC [address], [place], [address], [facility] [place] [facility] 01/22/2025 16:32:35 5 25577: Spinal manipulation , 3 to 4 regions completed Ed Garcia DC [address], [place], [address], [facility] [facility] 01/19/2025 12:20:14 5 08319: Spinal manipulation , 3 to 4 regions completed Félix Benz DC [address], [place], [address], [facility] [place] [facility] 01/18/2025 13:58:37 5 07423: Spinal manipulation , 3 to 4 regions completed Félix Benz DC [address], [place], [address], [facility] [place] [facility] 01/03/2025 17:13:52 5 73022: Spinal manipulation , 3 to 4 regions completed Félix Benz DC [address], [place], [address], [facility] [place] [facility] 12/08/2024 08:08:05 5 96370: Spinal manipulation , 3 to 4 regions completed Ed Garcia DC [address], [place], [address], [facility] 11/24/2024 18:16:02 5 46906: Spinal manipulation , 3 to 4 regions completed Félix Benz DC [address], [place], [address], [facility] 11/19/2024 15:41:26 5 85232: Spinal manipulation , 3 to 4 regions completed Félix Benz DC [address], [place], [address], [facility] 11/19/2024 15:47:58 5 85343: Spinal manipulation , 3 to 4 regions completed Ed Garcia DC [address], [place], [address], [facility] 11/10/2024 18:39:41 5 04987: Spinal manipulation , 3 to 4 regions completed Ed Garcia DC [address], [place], [address], [facility] 11/06/2024 16:43:37 5 97435: Spinal manipulation , 3 to 4 regions completed Ed Garcia DC [address], [place], [address], [facility] 10/23/2024 18:27:03 5 25756: Spinal manipulation , 3 to 4 regions completed Ed Garcia DC [address], [place], [address], [facility] 09/22/2024 09:53:09 5 09643: Spinal manipulation , 3 to 4 regions completed Ed Garcia DC [address], [place], [address], [facility] 09/15/2024 10:48:57 5 76190: Spinal manipulation , 3 to 4 regions completed Félix Benz DC [address], [place], [address], [facility] 08/30/2024 19:58:33 5 13157: Spinal manipulation , 3 to 4 regions completed Ed Garcia DC [address], [place], [address], [facility] 08/18/2024 12:03:44 5 94046: Spinal manipulation , 3 to 4 regions completed Ed Garcia DC [address], [place], [address], [facility] 08/14/2024 17:12:12 5 70687: Spinal manipulation , 3 to 4 regions completed Ed Garcia DC [address], [place], [address], [facility] 07/28/2024 11:54:19 5 05277: Spinal manipulation , 3 to 4 regions completed Aj Kelsey DC [address], [place], [address], [facility] 07/27/2024 10:25:50 5 06634: Spinal manipulation , 3 to 4 regions completed Félix Benz DC [address], [place], [address], [facility] 07/10/2024 19:14:45 5 61260: Spinal manipulation , 3 to 4 regions completed Ed Garcia DC [address], [place], [address], [facility] 06/19/2024 18:10:12 5 99428: Spinal manipulation , 3 to 4 regions completed Ed Garcia DC [address], [place], [address], [facility] 06/02/2024 12:08:47 5 29793: Spinal manipulation , 3 to 4 regions completed Ed Garcia DC [address], [place], [address], [facility] 05/22/2024 17:33:22 4 80108: Spinal manipulation , 3 to 4 regions completed [place], DC [address], [place], [address], [facility] 05/15/2024 14:34:53 4 24747: Spinal manipulation , 3 to 4 regions completed Ed Padgett [place], DC [address], [place], [address], [facility] 05/12/2024 17:25:34 4 07017: Spinal manipulation , 3 to 4 regions completed Ed Padgett [place], DC [address], [place], [address], [facility] 04/28/2024 13:23:51 4 47657: Spinal manipulation , 3 to 4 regions completed [place], DC [address], [place], [address], [facility] 04/24/2024 18:56:55 4 65779: Spinal manipulation , 3 to 4 regions completed [place], DC [address], [place], [address], [facility] 04/19/2024 19:01:54 Imaging Results None recorded. Procedure Notes None recorded. Medical Equipment None Reported. Allergies Allergen ID Allergen Name Allergen Category Reaction Reaction Severity Criticality Documentation Date Start Date Code Code System Note Provider Name and Address Organization Details Recorded Time 4307 atorvasta tin medicatio n other Not available Not available 03/12/20252023 54662 RxNorm Brain fog Not Available [employer] - prod 5 16:58:08 4308 Substance with sulfonami de structure and antibacte rial mechanism of action (substanc e) medicatio n hives Not available Not available 03/12/20252006 14123 8003 SNOMED Not Available [employer] - prod 5 16:58:08 Medications [...] ICD10 Code Diagnosis IMO Codes Diagnosis Note [id number] Ed Garcia DC [facility] [facility] [address] [place] [address] 02/26/2025 10:32:34 02/26/2025 12:23:06 Lumbar segmental dysfunction 863239150 M99.03 Low back pain 908393717 M54.50 Somatic dy sfunction of sacral spine 689780362 M99.04 Thoracic s egmental dysfunction 839008156 M99.02 [id number] Ed Garcia DC [address] [address] 03/12/2025 16:56:52 03/14/2025 11:29:46 Lumbar segmental dysfunction 236860587 M99.03 Low back pain 424683698 M54.50 Somatic dy sfunction of sacral spine 950239038 M99.04 Thoracic s egmental dysfunction 764639125 M99.02 [id number] Ed Garcia DC [address] [place] [address] 03/16/2025 15:13:57 03/19/2025 18:42:24 Lumbar segmental dysfunction 488243621 M99.03 Low back pain 021470840 M54.50 Somatic dy sfunction of sacral spine 467134511 M99.04 Thoracic s egmental dysfunction 013111927 M99.02 [id number] Ed Garcia DC [facility] [place] [facility] [address] [place] [address] 03/23/2025 10:29:55 03/23/2025 12:06:35 Lumbar segmental dysfunction 303365145 M99.03 Low back pain 892453138 M54.50 Somatic dy sfunction of sacral spine 214616416 M99.04 Thoracic s egmental dysfunction 665574201 M99.02 Health Concerns Section Related Observation LastModified by Organization Detai ls LastModified Time None Recorded Concern Status LastModified by Organization Details LastModified Time None Recorded Payers Encounter Date Sequence Insurance Name Policy Number Policy Hameed Covered Member ID Hameed Member ID Guarantor Name 03/23/2025 2 WEB TPA (MEDICARE SUPPLEMENT) Vishal Fish [id number] Vishal Fish 03/23/2025 1 MEDICARE [place]: [facility] [employer] [facility] Vishal Fish [id number] Vishal Fish Notes Date Note Type Note Provider Name and Address Organization Details Recorded Time 03/23/2025 text/html HPI - Lumbar SpineReported by PatientHPIFor location, patient reportsleft. For quality, patient reportsaching. For severity, patient reportsmoderate. For timing, patient reportsmorning. For aggravating factors, patient reportswalking,lift ing,carrying, andtwisting. For alleviating factors, patient reportsrest. Ed Garcia DC [address] [place] [address], [place], [address], [facility] 03/23/2025 12:05:17 OBGyn Episode No OBEpisode recorded.
--- OUTSIDE RECORDS SUMMARY | 2025-03-30 01:22 | XMS_ITS | Continuity of Care Document ---
Author Organization [place] [facility] Address [address] [place] [address] Assessment Encounter Date Assessment Date Assessment LastModified by Organization Details LastModified Time 02/26/2025 02/26/2025 ASSESSMENT: Patient is a good candidate for [...] to contact our office. ecram Not available 02/26/2025 11:27:58 Plan of Treatment Reminders Order Date Submit [...] Address Organization Details Recorded Time Neck pain 63513133 Active 2023 Félix Benz DC [address] [facility], [facility], [address], [place] [facility] 4 19:01:35 Lumbar segmental dysfunction 487863886 Active 2023 Ed Padgett Paoladilip ANGÉLICA [address] [facility], [place], [address], [place] [facility] 5 11:27:59 Thoracic segmental dysfunction 829230176 Active 2023 Ed Padgett PaoladilipANGÉLICA [address] [facility], [facility] [place], [address], [place] [facility] 5 11:27:59 Cervical segmental dysfunction 103156638 Active 2023 Félix Benz [facility] [address] [facility], [facility] [place], [address], [place] [facility] 4 19:01:35 Lesion of lumbar spine 345551875 Active 2023 Félix Benz [facility] [address] [facility], [facility] [place], [address], [place] [facility] 4 19:01:35 Low back pain 968497395 Active 2023 Ed Dayron Garcia DC [address] [facility], [place], [address], [place] [facility] 11:27:59 Somatic dysfunction of sacral spine 066586220 Active 2023 Ed Garcia DC [address] [facility], [facility] [place], [address], [place] [facility] 11:27:59 Problem Notes None recorded. Procedures Surgical History Date Name Laterality Status Provider Name and Address Organization Details Recorded Time 5 37808: Spinal manipulation , 3 to 4 regions completed Ed Garcia DC [address] [facility], [place], [address], [place] [facility] 03/23/2025 11:54:01 5 81343: Spinal manipulation , 3 to 4 regions completed Ed Garcia DC [address] [facility], [place], [address], [place] [facility] 03/16/2025 19:08:19 5 02580: Spinal manipulation , 3 to 4 regions completed Ed Garcia DC [address] [facility] [facility], [place], [address], [place] [facility] 03/12/2025 19:20:45 5 06609: Spinal manipulation , 3 to 4 regions completed Ed Garcia DC [address] [facility], [place], [address], [facility] [place] [facility] 02/26/2025 11:27:58 5 71316: Spinal manipulation , 3 to 4 regions completed Ed Garcia DC [address] [facility] [facility], [place], [address], [facility] [place] [facility] 01/22/2025 16:32:35 5 21590: Spinal manipulation , 3 to 4 regions completed Ed Garcia DC [address] [facility], [place], [address], [facility] [place] [facility] 01/19/2025 12:20:14 5 09915: Spinal manipulation , 3 to 4 regions completed Félix Benz DC [address] [facility], [place], [address], [facility] [place] [facility] 01/18/2025 13:58:37 5 09471: Spinal manipulation , 3 to 4 regions completed Félix Benz DC [address] [facility], [place], [address], [facility] [place] [facility] 01/03/2025 17:13:52 5 36018: Spinal manipulation , 3 to 4 regions completed Félix Benz DC [address] [facility], [place], [address], [facility] [place] [facility] 12/08/2024 08:08:05 5 41791: Spinal manipulation , 3 to 4 regions completed Ed Garcia DC [address] [facility] [facility], [place], [address], [facility] 11/24/2024 18:16:02 5 54765: Spinal manipulation , 3 to 4 regions completed Félix Benz DC [address] [facility] [facility], [place], [address], [facility] 11/19/2024 15:41:26 5 53729: Spinal manipulation , 3 to 4 regions completed Félix Benz DC [address] [facility], [place], [address], [facility] 11/19/2024 15:47:58 5 14536: Spinal manipulation , 3 to 4 regions completed Ed Garcia DC [address] [facility], [place], [address], [facility] 11/10/2024 18:39:41 5 13942: Spinal manipulation , 3 to 4 regions completed Ed Garcia DC [address] [facility], [place], [address], [facility] 11/06/2024 16:43:37 5 42395: Spinal manipulation , 3 to 4 regions completed Ed Garcia DC [address] [facility], [place], [address], [facility] 10/23/2024 18:27:03 5 10183: Spinal manipulation , 3 to 4 regions completed Ed Garcia DC [address] [facility], [place], [address], [facility] 09/22/2024 09:53:09 5 34549: Spinal manipulation , 3 to 4 regions completed Ed Garcia DC [address] [facility], [place], [address], [facility] 09/15/2024 10:48:57 5 83397: Spinal manipulation , 3 to 4 regions completed Félix Benz DC [address] [facility], [place], [address], [facility] 08/30/2024 19:58:33 5 78886: Spinal manipulation , 3 to 4 regions completed Ed Garcia DC [address] [facility], [place], [address], [facility] 08/18/2024 12:03:44 5 56823: Spinal manipulation , 3 to 4 regions completed Ed Garcia DC [address] [facility], [place], [address], [facility] 08/14/2024 17:12:12 5 49804: Spinal manipulation , 3 to 4 regions completed Ed Garcia DC [address] [facility], [place], [address], [facility] 07/28/2024 11:54:19 5 04378: Spinal manipulation , 3 to 4 regions completed Aj Kelsey DC [address] [facility], [place], [address], [facility] 07/27/2024 10:25:50 5 94615: Spinal manipulation , 3 to 4 regions completed Félix Benz DC [address] [facility], [place], [address], [facility] 07/10/2024 19:14:45 5 95276: Spinal manipulation , 3 to 4 regions completed Ed Garcia DC [address] [facility], [place], [address], [facility] 06/19/2024 18:10:12 5 72684: Spinal manipulation , 3 to 4 regions completed Ed Garcia DC [address] [facility], [place], [address], [facility] 06/02/2024 12:08:47 5 58444: Spinal manipulation , 3 to 4 regions completed Ed Garcia DC [address] [facility], [place], [address], [facility] 05/22/2024 17:33:22 4 60230: Spinal manipulation , 3 to 4 regions completed [place], DC [address] [address] [facility], [place], [address], [facility] 05/15/2024 14:34:53 4 92034: Spinal manipulation , 3 to 4 regions completed Ed Padgett [place], DC [address] [facility], [place], [address], [facility] 05/12/2024 17:25:34 4 53028: Spinal manipulation , 3 to 4 regions completed Ed Padgett [place], DC [address] [facility], [place], [address], [facility] 04/28/2024 13:23:51 4 97673: Spinal manipulation , 3 to 4 regions completed [place], DC [address] [facility], [place], [address], [facility] 04/24/2024 18:56:55 4 90849: Spinal manipulation , 3 to 4 regions completed [place], [place] [address] [facility] [address] [facility], [place], [address], [facility] 04/19/2024 19:01:54 Imaging Results None recorded. Procedure Notes None recorded. Medical Equipment None Reported. Allergies Allergen ID Allergen Name Allergen Category Reaction Reaction Severity Criticality Documentation Date Start Date Code Code System Note Provider Name and Address Organization Details Recorded Time 4307 atorvasta tin medicatio n other Not available Not available 03/12/20252023 64822 RxNorm Brain fog Not Available [employer] - prod 5 16:58:08 4308 Substance with sulfonami de structure and antibacte rial mechanism of action (substanc e) medicatio n hives Not available Not available 03/12/20252006 98477 8003 SNOMED Not Available [employer] - prod 5 16:58:08 Medications [...] ICD10 Code Diagnosis IMO Codes Diagnosis Note [id number] ANGÉLICA Nava [facility] [address] [address] [facility] [facility] [place] [address] 02/26/2025 10:32:34 02/26/2025 12:23:06 Lumbar segmental dysfunction 112333685 M99.03 Low back pain 020396153 M54.50 Somatic dy sfunction of sacral spine 339793297 M99.04 Thoracic s egmental dysfunction 456124765 M99.02 Health Concerns Section Related Observation LastModified by Organization Detai ls LastModified Time None Recorded Concern Status LastModified by Organization Details LastModified Time None Recorded Payers Encounter Date Sequence Insurance Name Policy Number Policy Hameed Covered Member ID Hameed Member ID Guarantor Name 02/26/2025 2 [employer] T[employer] (MEDICARE SUPPLEMENT) Vishal Mccannkuhl [id number] Vishal Pyrorhmkuhl 02/26/2025 1 [place] [employer] Vishal Mccannkuhl [id number] Vishal Pryorhmkuhl Notes Date Note Type Note Provider Name and Address Organization Details Recorded Time 02/26/2025 text/html HPI - Lumbar SpineReported by PatientHPIFor location, patient reportsleft. For quality, patient reportsaching. For severity, patient reportsmoderate. For timing, patient reportsmorning. For aggravating factors, patient reportswalking,lift ing,carrying, andtwisting. For alleviating factors, patient reportsrest. Ed Garcia DC [address] [address] [facility] [facility], [place], [address], [facility] 02/26/2025 11:29:08 OBGyn Episode No OBEpisode recorded.
--- OUTSIDE RECORDS SUMMARY | 2025-03-30 01:23 | XMS_ITS | Data Portability ---
Author Organization [place] - [facility], [employer] PERSONAL FINANCIAL ADVISOR [facility] Address [address] [place] [address] Assessment Encounter Date Assessment Date Assessment LastModified by Organization Details LastModified Time 01/22/2025 01/22/2025 ASSESSMENT: Patient is a good candidate for [...] to contact our office. ecram Not available 01/22/2025 16:32:36 02/26/2025 02/26/2025 ASSESSMENT: Patient is a good [...] our office. ecram Not available 02/26/2025 11:27:58 03/12/2025 03/12/2025 ASSESSMENT: Patient is a good [...] our office. ecram Not available 03/12/2025 19:20:45 03/16/2025 03/16/2025 ASSESSMENT: Patient is a good candidate for [...] to contact our office. ecram Not available 03/16/2025 19:08:19 03/23/2025 03/23/2025 ASSESSMENT: Patient is a good [...] Address Organization Details Recorded Time Neck pain 99723940 Active 2023 Félix PadillaFort [place]aines, [place] [address], [place], [address], [facility] 4 19:01:35 Lumbar segmental dysfunction 510317292 Active 2023 Ed Garcia [place] [address], [place], [address], [facility] 11:27:59 Thoracic segmental dysfunction 092326520 Active 2023 Ed Garcia, [place] [address], [place], [address], [facility] 11:27:59 Cervical segmental dysfunction 595320519 Active 2023 Félix Benz, ANGÉLICA [address], [place], [address], [place] [facility] 4 19:01:35 Lesion of lumbar spine 778569560 Active 2023 Félix Benz, ANGÉLICA [address], [place], [address], [place] [facility] 4 19:01:35 Low back pain 079546099 Active 2023 Ed Garcia DC [address], [place], [address], [facility] 11:27:59 Somatic dysfunction of sacral spine 740025275 Active 2023 Ed Garcia DC [address], [place], [address], [facility] 11:27:59 Problem Notes None recorded. Procedures Surgical History Date Name Laterality Status Provider Name and Address Organization Details Recorded Time 5 27643: Spinal manipulation , 3 to 4 regions completed Ed Dayron Paoladilip, ANGÉLICA [address], [place], [address], [facility] 03/23/2025 11:54:01 5 54656: Spinal manipulation , 3 to 4 regions completed Ed Dayron ANGÉLICA Garcia [address], [place], [address], [facility] 03/16/2025 19:08:19 5 27109: Spinal manipulation , 3 to 4 regions completed Ed Padgett Paoladilip, ANGÉLICA [address], [place], [address], [facility] 03/12/2025 19:20:45 11146: Spinal manipulation , 3 to 4 regions completed Ed Padgett Paoladiilp, [place] [address], [place], [address], [facility] 02/26/2025 11:27:58 5 23334: Spinal manipulation , 3 to 4 regions completed Ed Garcia DC [address], [place], [address], [place] [facility] 01/22/2025 16:32:35 5 56596: Spinal manipulation , 3 to 4 regions completed Ed Garcia DC [address], [place], [address], [place] [facility] 01/19/2025 12:20:14 5 48375: Spinal manipulation , 3 to 4 regions completed Félix Benz DC [address], [place], [address], [place] [facility] 01/18/2025 13:58:37 5 04412: Spinal manipulation , 3 to 4 regions completed Félix Benz DC [address], [place], [address], [place] [facility] 01/03/2025 17:13:52 5 98298: Spinal manipulation , 3 to 4 regions completed Félix Benz DC [address], [place], [address], [place] [facility] 12/08/2024 08:08:05 5 90927: Spinal manipulation , 3 to 4 regions completed Ed Garcia DC [address], [place], [address], [place] [facility] 11/24/2024 18:16:02 5 70869: Spinal manipulation , 3 to 4 regions completed Félix Benz DC [address], [place], [address], [place] [facility] 11/19/2024 15:41:26 5 62183: Spinal manipulation , 3 to 4 regions completed Félix Benz DC [address], [place], [address], [place] [facility] 11/19/2024 15:47:58 5 53183: Spinal manipulation , 3 to 4 regions completed Ed Garcia DC [address], [place], [address], [place] [facility] 11/10/2024 18:39:41 5 50639: Spinal manipulation , 3 to 4 regions completed Ed Garcia, ANGÉLICA [address], [place], [address], [place] [facility] 11/06/2024 16:43:37 5 44486: Spinal manipulation , 3 to 4 regions completed Ed Garcia, ANGÉLICA [address], [place], [address], [place] [facility] 10/23/2024 18:27:03 5 57306: Spinal manipulation , 3 to 4 regions completed Ed Garcia, ANGÉLICA [address], [place], [address], [facility] 09/22/2024 09:53:09 5 22929: Spinal manipulation , 3 to 4 regions completed Ed Garcia DC [address], [place], [address], [place] [facility] 09/15/2024 10:48:57 5 50843: Spinal manipulation , 3 to 4 regions completed Félix Benz DC [address], [place], [address], [place] [facility] 08/30/2024 19:58:33 5 23032: Spinal manipulation , 3 to 4 regions completed Ed Garcia, ANGÉLICA [address], [place], [address], [place] [facility] 08/18/2024 12:03:44 5 90175: Spinal manipulation , 3 to 4 regions completed Ed Garcia, ANGÉLICA [address], [place], [address], [facility] 08/14/2024 17:12:12 5 99770: Spinal manipulation , 3 to 4 regions completed Ed Garcia DC [address], [place], [address], [place] [facility] 07/28/2024 11:54:19 5 65380: Spinal manipulation , 3 to 4 regions completed Aj Kelsey DC [address], [place], [address], [place] [facility] 07/27/2024 10:25:50 5 30154: Spinal manipulation , 3 to 4 regions completed Félix Benz DC [address], [place], [address], [facility] 07/10/2024 19:14:45 5 27661: Spinal manipulation , 3 to 4 regions completed Ed Garcia DC [address], [place], [address], [facility] 06/19/2024 18:10:12 5 60455: Spinal manipulation , 3 to 4 regions completed Ed Garcia DC [address], [place], [address], [facility] 06/02/2024 12:08:47 5 21723: Spinal manipulation , 3 to 4 regions completed Ed Garcia DC [address], [place], [address], [facility] 05/22/2024 17:33:22 4 24613: Spinal manipulation , 3 to 4 regions completed Félix Benz DC [address], [place], [address], [facility] 05/15/2024 14:34:53 4 89943: Spinal manipulation , 3 to 4 regions completed Ed Garcia DC [address], [place], [address], [facility] 05/12/2024 17:25:34 4 52382: Spinal manipulation , 3 to 4 regions completed Ed Garcia DC [address], [place], [address], [facility] 04/28/2024 13:23:51 4 12750: Spinal manipulation , 3 to 4 regions completed [facility] [place], [place] [address], [place], [address], [facility] 04/24/2024 18:56:55 4 95689: Spinal manipulation , 3 to 4 regions completed [facility] [place] [address], [place], [address], [facility] 04/19/2024 19:01:54 Imaging Results None recorded. Procedure Notes None recorded. Medical Equipment None Reported. Allergies Allergen ID Allergen Name Allergen Category Reaction Reaction Severity Criticality Documentation Date Start Date Code Code System Note Provider Name and Address Organization Details Recorded Time 4307 atorvasta tin medicatio n other Not available Not available 03/12/20252023 79669 RxNorm Brain fog Not Available [facility] - prod 16:58:08 4308 Substance with sulfonami de structure and antibacte rial mechanism of action (substanc e) medicatio n hives Not available Not available 03/12/20252006 10220 8003 SNOMED Not Available [facility] - prod 16:58:08 Medications Name Sig Start Date Stop [...] ICD10 Code Diagnosis IMO Codes Diagnosis Note [id number] Félix Benz DC [facility] [address] [place] [address] 04/19/2024 14:00:11 04/20/2024 12:27:28 Cervical segmental dysfunction 587136340 M99.01 Neck pain 99220248 M54.2 Thoracic s egmental dysfunction 111415444 M99.02 Lumbar seg mental dysfunction 380269107 M99.03 Lesion of lumbar spine 068274824 M99.01 [id number] Félix Benz DC [facility] [address] [facility] [place] [address] 04/24/2024 18:04:51 04/24/2024 19:08:03 Cervical segmental dysfunction 051934147 M99.01 Neck pain 50949972 M54.2 Thoracic s egmental dysfunction 025743339 M99.02 Lumbar seg mental dysfunction 103614151 M99.03 Lesion of lumbar spine 597315696 M99.01 [id number] Ed Garcia DC [facility] [address] [facility] [place] [address] 04/28/2024 13:15:51 04/28/2024 13:30:06 Lumbar segmental dysfunction 376529318 M99.03 Low back pain 645232265 M54.50 Somatic dy sfunction of sacral spine 102027832 M99.04 Thoracic s egmental dysfunction 466473218 M99.02 [id number] Ed Garcia DC [facility] [address] [facility] [place] [address] 05/12/2024 17:23:41 05/12/2024 17:48:39 Lumbar segmental dysfunction 499682015 M99.03 Low back pain 108167576 M54.50 Somatic dy sfunction of sacral spine 271138794 M99.04 Thoracic s egmental dysfunction 387501003 M99.02 [id number] Félix Benz DC [facility] [address] [facility] [place] [address] 05/15/2024 10:46:51 05/15/2024 14:42:22 Lumbar segmental dysfunction 245753041 M99.03 Low back pain 437921716 M54.50 Somatic dy sfunction of sacral spine 463961141 M99.04 Thoracic s egmental dysfunction 074228054 M99.02 [id number] Ed Garcia DC [facility] [address] [facility] [place] [address] 05/22/2024 17:26:01 05/23/2024 11:17:01 Lumbar segmental dysfunction 190113325 M99.03 Low back pain 528856274 M54.50 Somatic dy sfunction of sacral spine 186443150 M99.04 Thoracic s egmental dysfunction 448592107 M99.02 [id number] Ed Garcia DC [facility] [address] [facility] [place] [address] 06/02/2024 11:43:43 06/02/2024 12:48:13 Lumbar segmental dysfunction 284987320 M99.03 Low back pain 759377765 M54.50 Somatic dy sfunction of sacral spine 683833432 M99.04 Thoracic s egmental dysfunction 526884240 M99.02 [id number] Ed Garcia DC [facility] & [address] [place] [address] 06/19/2024 17:52:36 06/19/2024 18:11:11 Lumbar segmental dysfunction 756612705 M99.03 Low back pain 817093887 M54.50 Somatic dy sfunction of sacral spine 626017342 M99.04 Thoracic s egmental dysfunction 567763468 M99.02 [id number] Félix Benz DC [facility] & [address] [facility] [place] [address] 07/10/2024 12:14:22 07/11/2024 17:50:53 Lumbar segmental dysfunction 270251282 M99.03 Low back pain 176095640 M54.50 Somatic dy sfunction of sacral spine 188348292 M99.04 Thoracic s egmental dysfunction 115489953 M99.02 [id number] Aj Kelsey DC [facility] & [address] [facility] [place] [address] 07/20/2024 16:01:05 08/03/2024 16:29:47 Low back pain 130526693 M54.50 Thoracic s egmental dysfunction 855944242 M99.02 Somatic dy sfunction of sacral spine 007575255 M99.04 Lumbar seg mental dysfunction 728186231 M99.03 [id number] Ed Garcia DC [facility] [address] [facility] [place] [address] 07/28/2024 11:42:39 07/28/2024 12:19:38 Low back pain 422801451 M54.50 Thoracic s egmental dysfunction 503117873 M99.02 Somatic dy sfunction of sacral spine 098535853 M99.04 Lumbar seg mental dysfunction 150879537 M99.03 [id number] Ed Garcia DC [facility] [address] [facility] [place] [address] 08/14/2024 17:09:18 08/14/2024 17:16:33 Low back pain 090271338 M54.50 Thoracic s egmental dysfunction 004991206 M99.02 Somatic dy sfunction of sacral spine 830021509 M99.04 Lumbar seg mental dysfunction 718682218 M99.03 [id number] Ed Garcia DC [facility] [address] [facility] [place] [address] 08/18/2024 11:40:03 08/18/2024 12:24:20 Low back pain 412351062 M54.50 Thoracic s egmental dysfunction 800764464 M99.02 Somatic dy sfunction of sacral spine 502284140 M99.04 Lumbar seg mental dysfunction 032965020 M99.03 [id number] Félix Benz DC [facility] [address] [facility] [place] [address] 08/30/2024 10:49:09 09/01/2024 15:47:55 Low back pain 289740126 M54.50 Thoracic s egmental dysfunction 694244656 M99.02 Somatic dy sfunction of sacral spine 682386575 M99.04 Lumbar seg mental dysfunction 718468862 M99.03 [id number] Ed Garcia DC [facility] [address] [facility] [place] [address] 09/15/2024 09:47:59 09/15/2024 11:04:59 Low back pain 555349347 M54.50 Thoracic s egmental dysfunction 890520124 M99.02 Somatic dy sfunction of sacral spine 387939561 M99.04 Lumbar seg mental dysfunction 780794937 M99.03 [id number] Ed Garcia DC [facility] & [address] [facility] [place] [address] 09/22/2024 09:22:47 09/22/2024 10:07:36 Low back pain 553306028 M54.50 Thoracic s egmental dysfunction 020340983 M99.02 Somatic dy sfunction of sacral spine 886135031 M99.04 Lumbar seg mental dysfunction 695324218 M99.03 [id number] Ed Garcia DC [facility] & [address] [facility] [place] [address] 10/23/2024 17:15:42 10/23/2024 18:49:02 Low back pain 020032526 M54.50 Thoracic s egmental dysfunction 641218116 M99.02 Somatic dy sfunction of sacral spine 942927344 M99.04 Lumbar seg mental dysfunction 744118673 M99.03 [id number] Ed Garcia DC [facility] & [address] [facility] [place] [address] 11/06/2024 16:36:31 11/06/2024 18:17:10 Low back pain 583225938 M54.50 Thoracic s egmental dysfunction 772449320 M99.02 Somatic dy sfunction of sacral spine 664937147 M99.04 Lumbar seg mental dysfunction 022362930 M99.03 040003 Ed Garcia DC [facility] [address] [facility] [place] [address] 11/10/2024 18:14:21 11/14/2024 18:09:56 Low back pain 826654821 M54.50 Thoracic s egmental dysfunction 871944874 M99.02 Somatic dy sfunction of sacral spine 858818095 M99.04 Lumbar seg mental dysfunction 212187527 M99.03 [id number] Félix Benz DC [facility] [address] [place], [place] [address] 11/16/2024 10:30:50 11/21/2024 18:30:25 Lumbar segmental dysfunction 767718999 M99.03 Low back pain 756230870 M54.50 Somatic dy sfunction of sacral spine 104153030 M99.04 Thoracic s egmental dysfunction 167836669 M99.02 [id number] Félix Benz DC [facility] [address] [facility] [place] [place] [address] 11/16/2024 15:46:38 11/22/2024 16:04:00 Lumbar segmental dysfunction 434459978 M99.03 Low back pain 989869812 M54.50 Somatic dy sfunction of sacral spine 910659695 M99.04 Thoracic s egmental dysfunction 906839849 M99.02 [id number] Ed Garcia [facility] [address] [facility] [place] [place] [address] 11/24/2024 18:11:26 11/24/2024 18:25:16 Low back pain 294875771 M54.50 Thoracic s egmental dysfunction 141665701 M99.02 Somatic dy sfunction of sacral spine 499533731 M99.04 Lumbar seg mental dysfunction 195591645 M99.03 [id number] Félix Benz DC [facility] [address] [place], [place] [address] 12/07/2024 19:11:19 12/11/2024 16:04:37 Lumbar segmental dysfunction 441418741 M99.03 Low back pain 777660752 M54.50 Somatic dy sfunction of sacral spine 061808306 M99.04 Thoracic s egmental dysfunction 122517270 M99.02 [id number] Félix Benz DC [facility] [address] [place], [place] [address] 01/03/2025 16:53:28 01/03/2025 21:16:54 Lumbar segmental dysfunction 471956967 M99.03 Low back pain 907546006 M54.50 Somatic dy sfunction of sacral spine 258862384 M99.04 Thoracic s egmental dysfunction 023072268 M99.02 [id number] Félix Chad Benz DC [facility] [address] [facility] [place] [address] 01/18/2025 10:59:36 01/18/2025 15:14:03 Lumbar segmental dysfunction 636879763 M99.03 Low back pain 486387165 M54.50 Somatic dy sfunction of sacral spine 026220391 M99.04 Thoracic s egmental dysfunction 601223207 M99.02 [id number] Ed Garcia DC [facility] [address] [facility] [place] [address] 01/19/2025 10:50:10 01/19/2025 12:44:52 Lumbar segmental dysfunction 095168880 M99.03 Low back pain 543251859 M54.50 Somatic dy sfunction of sacral spine 690733464 M99.04 Thoracic s egmental dysfunction 021293581 M99.02 [id number] Ed Garcia DC [facility] & [address] [facility] [place] [address] 01/22/2025 16:21:47 01/23/2025 18:02:21 Lumbar segmental dysfunction 338134081 M99.03 Low back pain 609106757 M54.50 Somatic dy sfunction of sacral spine 665045713 M99.04 Thoracic s egmental dysfunction 087208040 M99.02 [id number] Ed Garcia [facility] [address] [facility] [place] [address] 02/26/2025 10:32:34 02/26/2025 12:23:06 Lumbar segmental dysfunction 321956736 M99.03 Low back pain 337119427 M54.50 Somatic dy sfunction of sacral spine 259783281 M99.04 Thoracic s egmental dysfunction 358126916 M99.02 [id number] Ed Garcia DC [facility] [address] [place] [address] 03/12/2025 16:56:52 03/14/2025 11:29:46 Lumbar segmental dysfunction 272763875 M99.03 Low back pain 810402795 M54.50 Somatic dy sfunction of sacral spine 820915641 M99.04 Thoracic s egmental dysfunction 632986203 M99.02 [id number] ANGÉLICA Nava [facility] [address] [facility] [place] [address] 03/16/2025 15:13:57 03/19/2025 18:42:24 Lumbar segmental dysfunction 699271718 M99.03 Low back pain 032368780 M54.50 Somatic dy sfunction of sacral spine 677451707 M99.04 Thoracic s egmental dysfunction 373069993 M99.02 [id number] ANGÉLICA Nava [facility] [address] [place] [address] 03/23/2025 10:29:55 03/23/2025 12:06:35 Lumbar segmental dysfunction 474457257 M99.03 Low back pain 383888668 M54.50 Somatic dy sfunction of sacral spine 727861392 M99.04 Thoracic s egmental dysfunction 039162518 M99.02 Health Concerns Section Related Observation LastModified by Organization Detai ls LastModified Time None Recorded Concern Status LastModified by Organization Details LastModified Time None Recorded Advance Directives Directive None Recorded Payers Insurance Date Sequence Insurance Name Policy Number Policy Hameed Covered Member ID Hameed Member ID Guarantor Name 07/10/2024 2 WEB TPA (MEDICARE SUPPLEMENT) Genie Ramykuhl [id number] Genie Pryorhmkuhl 05/01/2024 2 [place] [employer] Genie Caraballol [id number] Genie Mccannkuhl 05/02/2024 1 [place] [employer] Genie Mccannkuhl [id number] Genie Mccannkuhl 03/23/2025 1 [place] [employer] Genie Fish [id number] Genie Fish 07/06/2024 2 [place] [facility] (MEDICARE SUPPLEMENT) Genie Fish [id number] Genie Fish Notes Date Note Type Note Provider Name and Address Organization Details Recorded Time 01/22/2025 text/html HPI - Lumbar SpineReported by PatientHPIFor location, patient reportsleft. For quality, patient reportsaching. For severity, patient reportsmoderate. For timing, patient reportsmorning. For aggravating factors, patient reportswalking,lift ing,carrying, andtwisting. For alleviating factors, patient reportsrest. Ed Garcia DC [address], [place], [address], [facility] 01/22/2025 16:33:24 02/26/2025 text/html HPI - Lumbar SpineReported by PatientHPIFor location, patient reportsleft. For quality, patient reportsaching. For severity, patient reportsmoderate. For timing, patient reportsmorning. For aggravating factors, patient reportswalking,lift ing,carrying, andtwisting. For alleviating factors, patient reportsrest. Ed Garcia DC [address], [place], [address], [facility] 02/26/2025 11:29:08 03/12/2025 text/html HPI - Lumbar SpineReported by PatientHPIFor location, patient reportsleft. For quality, patient reportsaching. For severity, patient reportsmoderate. For timing, patient reportsmorning. For aggravating factors, patient reportswalking,lift ing,carrying, andtwisting. For alleviating factors, patient reportsrest. Ed Garcia DC [address], [place], [address], [facility] 03/12/2025 19:22:02 03/16/2025 text/html HPI - Lumbar SpineReported by PatientHPIFor location, patient reportsleft. For quality, patient reportsaching. For severity, patient reportsmoderate. For timing, patient reportsmorning. For aggravating factors, patient reportswalking,lift ing,carrying, andtwisting. For alleviating factors, patient reportsrest. Ed Garcia DC [address], [place], [address], [facility] 03/16/2025 19:09:59 03/23/2025 text/html HPI - Lumbar SpineReported by PatientHPIFor location, patient reportsleft. For quality, patient reportsaching. For severity, patient reportsmoderate. For timing, patient reportsmorning. For aggravating factors, patient reportswalking,lift ing,carrying, andtwisting. For alleviating factors, patient reportsrest. Ed Garcia DC [address], [place], [address], [facility] 03/23/2025 12:05:17 OBGyn Episode No OBEpisode recorded.
--- OUTSIDE RECORDS SUMMARY | 2025-03-30 01:24 | XMS_ITS | Patient Health Record ---
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 [address] [place] [address] [id number] Polina Genie Self - patient is the insured
--- OUTSIDE RECORDS SUMMARY | 2025-03-30 01:24 | XMS_ITS | Clinical Summary ---
Author Organization [facility] Address [facility] [place] [address] Care Team Providers Care Dry Finisher Name Role Phone Jone Calvert MD Primary Care Provider Allergies Active Allergy Reactions Criticality Noted Date Comments Atorvastatin Other - Describe In Comment Field 07/06/2023 Brain fog Nirmatrelvir-Ritonavir Other - Describe In Comment Field 09/19/2021 Anxious, crazy, can't relax, blood pressure up and down. Sulfa (Sulfonamide Antibiotics) Hives 05/06/2007 Medications Magnesium 200 mg Tab Take 400 mg by mouth once daily. Active Methylsulfonylmeth ane (MSM) 1,000 mg cap Take 2 capsules by mouth 2 times daily. 0 03/19/20 15 Active multivitamin (MVI) tablet Take 1 tablet by mouth once daily. 0 03/19/20 15 Active Lactobac no.41-Bifidobact no.7 (PROBIOTIC-10) 70 mg (3 billion cell) cap Take 1 tablet by mouth once daily. Active miscellaneous medical supply miscIndications:Ne ed for COVID-19 vaccine Pfizer COVID-19 booster vaccine per CDC guidelines. 1 unit 02/11/20 21 Active cholecalciferol, Vitamin D3, (Vitamin D-3) 5,000 unit tab tablet Take by mouth once daily. 0 02/12/20 Active medication order composer Vitamin E 160 mg once daily, Fish Oil, Cranberry Caps 0 02/12/20 Active zinc 50 mg tablet Take 1 Tablet (50 mg) by mouth once daily. 0 02/12/20 21 Active psyllium (Metamucil Fiber Singles) 3.4 gram pwpk packet Mix in liquid then take by mouth. Active Cranberry 400 mg capsule 03/03/20 Active ferrous sulfate 325 mg delayed release tablet Take 1 Tablet by mouth. 03/03/20 Active Creon 36,000-114,000- 180,000 unit capsuleIndications :Diarrhea, unspecified type TAKE 2 CAPSULES THREE TIMES A DAY WITH MEALS FOR DIARRHEA. SWALLOW WHOLE. DO NOT CRUSH, CHEW, AND/OR DIVIDE. 540 Capsule 3 05/18/19 24 Active Graduated Compression StockingsIndicatio ns:Lymphedema 20-30 mm/Hg thigh high compression stockings - Venous insufficiency 8 Packet 11/05/19 24 Active ezetimibe 10 mg tabletIndications: Hyperlipidemia, unspecified hyperlipidemia type Take 1 Tablet (10 mg) by mouth once daily. 90 Tablet 3 11/14/19 25 Active levothyroxine 88 mcg tabletIndications: Hypothyroidism, unspecified type TAKE 1 TABLET DAILY THREE DAYS A WEEK 36 Tablet 3 11/14/19 25 Active levothyroxine 100 mcg tabletIndications: Hypothyroidism, unspecified type TAKE 1 TABLET FOUR DAYS A WEEK 50 Tablet 3 11/14/19 25 Active losartan 50 mg tabletIndications: Hypertension, unspecified type Take 1 Tablet (50 mg) by mouth two times daily. 180 Tablet 3 11/14/19 25 Active omeprazole 20 mg Delayed-Release capsuleIndications :Chronic GERD Take 1 Capsule (20 mg) by mouth once daily before a meal. 90 Capsule 3 11/14/19 25 Active potassium chloride 10 mEq extended-release tablet (part/cryst)Indica tions:Hypertension , unspecified type Take 2 Tablets (20 mEq) by mouth once daily with a meal. 180 Tablet 3 11/14/19 25 Active triamterene-hydroc hlorothiazide (37.5-25 mg) 37.5-25 mg capsuleIndications :Hypertension, unspecified type Take 1 Capsule by mouth once daily in the morning. 90 Capsule 3 11/14/19 25 Active estradioL (ESTRACE) 0.01% (0.1 mg/g) vaginal creamIndications:V aginal atrophy USE VAGINALLY 2 TIMES EVERY WEEK DIRECTED 42.5 g 3 01/27/20 25 Active fluticasone (50 mcg per actuation) nasal solution (FLONASE)Indicatio ns:ETD (Eustachian tube dysfunction), right Inhale 2 Sprays into affected nostril(s) once daily. 16 g 11 02/08/20 25 Active fluconazole (DIFLUCAN) 150 mg tabletIndications: Antibiotic-induced yeast infection Take 1 Tablet (150 mg) by mouth one time for 1 dose. 1 Tablet 03/02/20 25 025 clotrimazole 1% vaginal creamIndications:Y east vaginitis Insert 1 Applicatorful into the vagina at bedtime for 7 days. 1 applicatorful (approximately 5 g) daily for seven days 45 g 03/06/20 25 025 Active Problems Problem Noted Date Diagnosed Date Venous insufficiency 08/07/2024 Lipedema 08/07/2024 Acute vestibular neuronitis 04/04/2024 Family history of malignant neoplasm of pancreas 04/04/2024 Stress at home 08/05/2023 Depression, recurrent 11/12/2022 Chronic pain of left ankle 07/30/2022 Agenesis of pancreas 07/30/2022 Diverticular disease of large intestine 05/11/20 17 Pelvic prolapse 09/14/2016 History of colonic polyps 05/06/2016 GERD (gastroesophageal reflux disease) 4 Essential hypertension 12/21/2013 Hyperlipidemia 12/21/2013 Hypothyroid 12/21/2013 Resolved Problems Problem Noted Date Diagnosed Date Resolved Date Lymphedema 01/30/2020 08/07/2024 Physical exam, annual 12/21/20132018 Systolic murmur 12/21/2013 07/30/2022 Lightheadedness 12/12/2013 06/13/2018 Near syncope 12/12/2013 07/16/2021 Encounters Date Type Department Care Team Description 03/30/2025 Nurse Triage [facility] [address] [place] [address] Jone Calvert MD Chest Pain/problem; High Blood Pressure 03/24/2025 Orders Only [facility] [address] [place] [address] Jone Calvert MD <No scans attached> 03/23/2025 1:40 PM BRUSHER OPERATOR Office Visit [facility] [address] [place] [address] Jone Calvert MD Leg Swelling (Bilateral lower leg and foot swelling, ongoing since 12/2024, not feeling well); Sinus Problem (Sinuses feel congested, pressure in ears, bloody nose last 5 days) 03/23/2025 Travel 03/23/2025 Nurse Triage [facility] [address] [place] [address] Jone Calvert MD Leg Swelling 03/02/2025 Telephone [facility] [address] [place] [address] Jone Calvert MD Questions (Yeast infection ) 02/20/2025 11:20 AM CDT Office Visit [facility] [address] [place] [address] Jone Calvert MD Urinary Problem (Pain with urination, started 3 days ago) 02/20/2025 Travel 02/07/2025 2:00 PM CDT Office Visit [address] [address] Maisha Madden PA Consult ( Asymmetric SNHL (sensorineural hearing loss) ) 02/07/2025 Travel 01/30/2025 12:30 PM CDT Office Visit [facility] [address] [place] [address] Mirian Bocanegra AuD Hearing Problem (Hearing test) 01/30/2025 Travel 01/27/2025 Travel 01/26/2025 3:20 PM CDT Office Visit [facility] [address] [place] [address] Jone Calvert MD Follow Up (Left foot swollen, x 1 month) 01/26/2025 Travel 01/24/2025 [address] [place] [address] Jone Calvert MD Refill Request (Estradiol) 01/04/2025 3:30 PM CDT Ancillary Procedure [facility] [address] [place] [address] 01/04/2025 Travel 12/29/2024 1:15 PM CDT Office Visit [facility] [address] [place] [address] Camelia Boston PA Foot Problem (Left ) 12/29/2024 Travel 12/29/2024 Nurse Triage [facility] [address] [place] [address] Jone Calvert MD Leg Swelling from Last 3 Months Immunizations Immunization Administration Dates Next Due COVID-19 VACCINE SPIKEVAX (M ODERNA 50MCG/0.5ML) 12YO+ PFS 08/07/2024,08/05/2023 COVID-19 vaccine (Neverfail-Bio NTech 30mcg/0.3mL) 12YO+ BIVALENT PF, MDV 11/12/2022 COVID-19 vaccine (Pfizer-Bio NTech 30mcg/0.3mL) PF, MDV 02/17/2021,06/27/2020,06/06/2020 Influenza A (H1N1), Inactivated 05/28/2009 Influenza Virus, Unspecified 01/15/2018,04/03/19 96 Influenza, High-dose Inactivated 025,01/24/2024,12/28/2018,02/24,03/05/2017,01/21/2016,03/22/2015 ,01/30/2014 Influenza, High-dose Quadriv alent Inactivated 02/01/2022,01/13/2021 Influenza, IIV3 (Age >=3 years) 02/15/20 18,03/03/2011,05/21/2010,03/07 Pneumococcal Conj 20-valent (Prevnar 20) 07/30/2022 Pneumococcal Poly,23-Valent (Pneumovax) 01/15/2011 Pneumococcal conj 13-Valent (Prevnar 13) 01/21/2016 RSV, Recombinant ADJ Reconst ituted (Arexvy 120MCG/0.5mL) 08/06/2023 Td (Age >=7 Years) 04/03/1996 Td, Preservative Free (age >= 7 Years) 8 Tdap 07/22/2021,12/09/2011 Tuberculin (PPD) 01/02/2019,12/26/2018 Zoster (Shingrix-RZV, recombinant) 05/29/2019, Zoster (Zostavax-ZVL, live) 02/01/2009, 9 Family History Medical History Relation Name Comments Cancer-pancreatic Brother 1 in hi s 50's Lymphoma Brother 1 Cancer Brother 2 neck, alive at 93 as of 2024. Cancer Other pancreas, unspe cified relative Cancer-colon Sister age in 40's Cancer-pancreatic Sister in he r 50's. Anesthesia Problem No Family History Relation Name Status Comments Brother 1 Alive Brother 2 Other Sister Social History Tobacco Use Types Packs/Day Years Used Date Smoking Tobacco: Never Smokeless Tobacco: Never Tobacco Cessation:Counseling Given: No Alcohol Use Standard Drinks/Week Comments Not Currently 0 (1 standard drink = 0.6 oz pur e alcohol) rare PHQ-2 Answer Date Recorded PHQ-2 TOTAL SCORE 0 08/07/2024 Social Connections Answer Date Recorded Do you often feel lonely or isolated from those around you? 0 08/07/2024 Alcohol Use Answer Date Recorded How often do you have a drink containing alcohol ? 1 03/23/2025 How many drinks containing a lcohol do you have on a typical day when you are drinking? 0 03/23/2025 How often do you have five or more drinks on one occasion? 0 03/23/2025 Financial Resource Strain Answer Date R ecorded Difficulty of Paying Living Expenses 3 08/07/2024 Difficulty of Paying Living Expenses Not on file 08/07/2024 Food Insecurity Answer Date Recorded Do you worry your food will run out before you are able to buy more? 1 08/07/2024 Transportation Needs Answer Date Record ed Does lack of transportation keep you from medica l appointments? 1 08/07/2024 Does lack of transportation keep you from work, meetings or getting things that you need? 1 08/07/2024 Housing Stability Answer Date Recorded What is your housing situation today? 1 08/07/2024 Utilities Answer Date Recorded Do you have trouble paying f or utilities (for example, heat, electricity, water, phone)? 1 08/07/2024 Comments No Sex and Gender Information Value Date Recorded Sex Assigned at Not on file Legal Sex Female 5:21 AM BRUSHER OPERATOR Gender Identity Not on file Sexual Orientation Not on file Obstetrics History Last Filed Vital Signs Vital Sign Reading Time Taken Comments Blood Pressure 149/82 03/23/2025 1:29 PM BRUSHER OPERATOR Pulse 56 03/23/2025 1:29 PM BRUSHER OPERATOR Temperature 36.7 C (98 F) 12/19/2021 3:53 PM CDT Respiratory Rate 16 11/05/2023 2:04 PM CDT Oxygen Saturation 97% 03/23/2025 1:29 PM BRUSHER OPERATOR Inhaled Oxygen Concentration - - Weight 72.3 kg (159 lb 6.4 oz) 03/23/2025 1:29 P M BRUSHER OPERATOR Height 154.9 cm (5' 1) 01/26/2025 3:19 PM CDT Body Mass Index 30.12 01/26/2025 3:19 PM CDT Plan of Treatment Upcoming Encounters Date Type Department Care Team (Late st Contact Info) Description 04/06/2025 10:00 AM BRUSHER OPERATOR Ancillary Procedure [facility] [address] [place] [address] 05/14/2025 9:00 AM BRUSHER OPERATOR Orders Only [facility] [address] [place] [address] Lab, [place] 05/18/2025 8:50 AM BRUSHER OPERATOR Office Visit [facility] [address] [place] [address] Jone Calvert MD [address] [place] [address] Health Maintenance Due Date Last Done Comments Medicare Wellness for age 65+ 08/08/2025 08/07/2024, 08/05/2023, 07/30/2022, Additional history exists Depression screening for age 12+ 09/04/2025 09/04/2024, 08/07/2024, 08/05/2023, Additional history exists BMI (ht and wt on same day) for age 18+ 01/26/2026 01/26/2025, 08/07/2024, 08/05/2023, Additional history exists Tetanus booster 07/23/2031 07/22/2021, 11/15, 03/30/2008, Additional history exists Zoster (shingles) series for age 50+ Completed 05/29/2019, 12/28/2018, 02/01/2009, Additional history exists Hepatitis C screening for age 18-79 Completed 07/03/2020 Pneumococcal series for age 50+ Completed 07/30/2022, 01/21/2016, 05/15/2011, Additional history exists DEXA/DXA scan for age 65+ Completed 08/20/2022, RSV vaccine for adults or Completed 08/06/2023 Influenza Vaccine Completed 01/30/2025, , 12/28/2018, Additional history exists Hepatitis B series for 19+ Aged Out N o longer eligible based on patient's age to complete this topic Procedures Procedure Name Priority Date/Time Associated Diagnosis Comments CBC WITH AUTO DIFFERENTIAL Routine 03/23/2025 2:04 PM BRUSHER OPERATOR Dysuria URINE CULTURE Routine 03/23/2025 2:04 PM BRUSHER OPERATOR Dysuria URINALYSIS MACROSCOPIC - [facility] ONLY POC DIP ([facility]) Routine 03/23/2025 2:04 PM BRUSHER OPERATOR Dysuria BASIC METABOLIC PANEL Routine 03/23/2025 2:04 PM BRUSHER OPERATOR Dysuria CBC WITH AUTO DIFFERENTIAL Routine 03/23/2025 2:04 PM BRUSHER OPERATOR Dysuria URINALYSIS MICROSCOPIC Routine 02/20/2025 11:31 AM CDT Dysuria URINE CULTURE Routine 02/20/2025 11:31 AM CDT Dysuria URINALYSIS MACROSCOPIC - [facility] ONLY POC DIP ([facility]) Routine 02/20/2025 11:31 AM CDT Dysuria MR ABDOMEN PANCREAS WWO Routine 01/04/2025 4:03 PM CDT Family history of pancreatic cancer XR DXA BONE DENSITY 2 SITES AXIAL Routine 08/20/2022 9:22 AM CDT Post-menopausal ANTI HCV Add On 07/03/2020 9:33 AM BRUSHER OPERATOR Need for hepatitis C screening test from Last 3 Months or Most Recently Relevant to Health Maintenance Results * POCT Urinalysis Dipstick Only [[id number]] (03/23/2025 2:04 PM BRUSHER OPERATOR) Only the most recent of2 resultswithin the time period is included. SPECIFIC GRAVITY 1.010 1.001 - 1.035 03/23/2025 2:22 PM BRUSHER OPERATOR [facility] PROTEIN NEGATIVE NEGATIVE 03/23/2025 2:22 PM BRUSHER OPERATOR [facility] GLUCOSE NEGATIVE NEGATIVE 03/23/2025 2:22 PM BRUSHER OPERATOR [facility] KETONES NEGATIVE NEGATIVE 03/23/2025 2:22 PM BRUSHER OPERATOR [facility] BILIRUBIN NEGATIVE NEGATIVE 03/23/2025 2:22 PM BRUSHER OPERATOR [facility] OCCULT BLOOD NEGATIVE NEGATIVE 03/23/2025 2:22 PM BRUSHER OPERATOR [facility] NITRITE NEGATIVE NEGATIVE 03/23/2025 2:22 PM BRUSHER OPERATOR [facility] PH 6.5 5.0 - 8.0 03/23/2025 2:22 PM BRUSHER OPERATOR [facility] LEUKOCYTE ESTERASE NEGATIVE NEGATIVE 03/23/2025 2:22 PM BRUSHER OPERATOR [facility] Urine URINE SPECIMEN / Unknown Non-Blood / Unknown 03/23/2025 2:04 PM BRUSHER OPERATOR 03/23/2025 2:04 PM BRUSHER OPERATOR us Jone Calvert MD URINE Final Result [facility] [address] [place] [address], [place] [phone] [facility] [address] [place] [address], [place] [phone] * CBC WITH AUTO DIFFERENTIAL (03/23/2025 2:04 PM BRUSHER OPERATOR) WHITE BLOOD CELL COUNT 5.8 3.8 - 10.8 Thousand/u L 03/24/2025 4:53 AM BRUSHER OPERATOR [facility] RED BLOOD CELL COUNT 4.05 3.80 - 5.10 Million/uL 03/24/2025 4:53 AM BRUSHER OPERATOR [facility] HEMOGLOBIN 11.8 11.7 - 15.5 g/dL 03/24/2025 4:53 AM BRUSHER OPERATOR [facility] HEMATOCRIT 35.2 35.0 - 45.0 % 03/24/2025 4:53 AM BRUSHER OPERATOR [facility] MCV 86.9 80.0 - 100.0 fL 03/24/2025 4:53 AM BRUSHER OPERATOR [facility] MCH 29.1 27.0 - 33.0 pg 03/24/2025 4:53 AM BRUSHER OPERATOR [facility] MCHC 33.5 32.0 - 36.0 g/dL 03/24/2025 4:53 AM BRUSHER OPERATOR [facility] Comment: For adults, a slight decrease in the calculated MCHC value (in the range of 30 to 32 g/dL) is most likely not clinically significant; however, it should be interpreted with caution in correlation with other red cell parameters and the patient's clinical condition. RDW 11.8 11.0 - 15.0 % 03/24/2025 4:53 AM BRUSHER OPERATOR [facility] PLATELET COUNT 339 140 - 400 Thousand/u L 03/24/2025 4:53 AM BRUSHER OPERATOR [facility] MPV 10.0 7.5 - 12.5 fL 03/24/2025 4:53 AM BRUSHER OPERATOR [facility] NEUTROPHILS 57.7 % 03/24/2025 4:53 AM BRUSHER OPERATOR [facility] LYMPHOCYTES 28.5 % 03/24/2025 4:53 AM BRUSHER OPERATOR [facility] MONOCYTES 11.2 % 03/24/2025 4:53 AM BRUSHER OPERATOR [facility] EOSINOPHILS 1.9 % 03/24/2025 4:53 AM BRUSHER OPERATOR [facility] BASOPHILS 0.7 % 03/24/2025 4:53 AM BRUSHER OPERATOR [facility] ABSOLUTE NEUTROPHILS 3347 1500 - 7800 cells/uL 03/24/2025 4:53 AM BRUSHER OPERATOR [facility] ABSOLUTE LYMPHOCYTES 1653 850 - 3900 cells/uL 03/24/2025 4:53 AM BRUSHER OPERATOR [facility] ABSOLUTE MONOCYTES 650 200 - 950 cells/uL 03/24/2025 4:53 AM BRUSHER OPERATOR [facility] ABSOLUTE EOSINOPHILS 110 15 - 500 cells/uL 03/24/2025 4:53 AM BRUSHER OPERATOR [facility] ABSOLUTE BASOPHILS 41 0 - 200 cells/uL 03/24/2025 4:53 AM BRUSHER OPERATOR [facility] Blood BLOOD SPECIMEN / Unknown [facility] Collect / Unknown 03/23/2025 2:04 PM BRUSHER OPERATOR 03/23/2025 2:04 PM BRUSHER OPERATOR us Jone Calvert MD HEMATOLOGY Final Result [facility] [address] [address], [place] [phone] * URINE CULTURE [88610.2] (03/23/2025 2:04 PM BRUSHER OPERATOR) Only the most recent of2 resultswithin the time period is included. CULTURE No growth (<1,000 CFU/mL) 03/24/2025 7:00 PM BRUSHER OPERATOR [facility] Urine URINE SPECIMEN / Unknown Non-Blood / Unknown 03/23/2025 2:04 PM BRUSHER OPERATOR 03/23/2025 2:04 PM BRUSHER OPERATOR us Jone Calvert MD MICROBIOLOGY Final Result [facility] [address] [place] [id number], * (ABNORMAL) BASIC METABOLIC PANEL (03/23/2025 2:04 PM BRUSHER OPERATOR) SODIUM 133(L) 135 - 146 mmol/L 03/24/2025 4:41 AM BRUSHER OPERATOR [facility] POTASSIUM 4.3 3.5 - 5.3 mmol/L 03/24/2025 4:41 AM BRUSHER OPERATOR [facility] CARBON DIOXIDE 31 20 - 32 mmol/L 03/24/2025 4:41 AM BRUSHER OPERATOR [facility] GLUCOSE 84 65 - 99 mg/dL 03/24/2025 4:41 AM BRUSHER OPERATOR [facility] Comment: Fasting reference interval CALCIUM 9.8 8.6 - 10.4 mg/dL 03/24/2025 4:41 AM BRUSHER OPERATOR [facility] CREATININE 0.76 0.60 - 1.00 mg/dL 03/24/2025 4:41 AM BRUSHER OPERATOR [facility] BUN/CREATININE RATIO SEE NOTE: 6 - 22 (calc) 03/24/2025 4:41 AM BRUSHER OPERATOR [facility] Comment: Not Reported: BUN and Creatinine are within reference range. EGFR 80 > OR = 60 mL/min/1. 73m2 03/24/2025 4:41 AM BRUSHER OPERATOR [facility] UREA NITROGEN (BUN) 19 7 - 25 mg/dL 03/24/2025 4:41 AM BRUSHER OPERATOR [facility] ELECTROLYTE BALANCE 9 7 - 17 mmol/L (calc) 03/24/2025 4:41 AM BRUSHER OPERATOR [facility] CHLORIDE 93(L) 98 - 110 mmol/L 03/24/2025 4:41 AM BRUSHER OPERATOR [facility] Blood BLOOD SPECIMEN / Unknown [facility] Collect / Unknown 03/23/2025 2:04 PM BRUSHER OPERATOR 03/23/2025 2:04 PM BRUSHER OPERATOR Jone Calvert MD CHEMISTRY Final Result [facility] [address] [place] [address], * (ABNORMAL) URINALYSIS MICROSCOPIC [55580.1] - routine (02/20/2025 11:31 AM CDT) RBC >100(A) 0-2, None Seen /HPF 02/20/2025 5:26 PM CDT [facility] WBC >100(A) 0-2, 3-5, None Seen /HPF 02/20/2025 5:26 PM CDT [facility] BACTERIA Few None Seen, Rare, Few Bacteria/ HPF 02/20/2025 5:26 PM CDT [facility] EPITHELIAL CELLS None Seen None Seen, Few Epi/HPF 02/20/2025 5:26 PM CDT [facility] HYALINE CASTS 0-2 0-2, 3-5 /LPF 02/20/2025 5:26 PM CDT [facility] Urine URINE SPECIMEN / Unknown Non-Blood / Unknown 02/20/2025 11:31 AM CDT 02/20/2025 11:37 AM CDT Jone Calvert MD URINE Final Result [facility] [address] [place] [address], [place] * MR ABDOMEN PANCREAS WWO (01/04/2025 4:03 PM CDT) Anatomical Region Laterality Modality Abdomen, PANCREAS Magnetic Reson ance 01/06/2025 6:52 PM CDT Narrative 01/06/2025 6:52 PM CDT For Patients: As a result of the Cures Act, medical imaging exams and procedure reports are released immediately into your electronic medical record. You may view this report before your referring provider. If you have questions, please contact your health care provider. INDICATION: Evaluate for pancreatic cancer. COMPARISON: Abdominal MRIs dated 27 February 2022 and 07 March 2021. TECHNIQUE: Abdominal MRI with T1 in- and out of phase, T2, diffusion weighted, and progressively delayed post-contrast images. Intravenous gadolinium administered. FINDINGS: No fatty infiltration of the liver. No focal abnormalities identified in the visualized portions of the liver, spleen, adrenal glands, and kidneys. No hydronephrosis. No adenopathy. Normal appearance of the head of the pancreas. Absence of the body and tail of the pancreas. No focal pancreatic lesions identified. No bile duct dilation. Normal size of the main pancreatic duct. Impression : 1. Normal appearance of the head of the pancreas. 2. 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 Dictated by Franco Lazar MD @ 01/06/2025 6:52:15 PM (Electronically Signed) Procedure Note Franco Lazar MD - 01/06/2025 For Patients: As a result of the Cures Act, medical imagingexams and procedure reports are released immediately into your electronicmedical record. You may view this report before your referring provider.If you have questions, please contact your health care provider. INDICATION: Evaluate for pancreatic cancer. COMPARISON: Abdominal MRIs dated 27 February 2022 and 07 March 2021. TECHNIQUE: Abdominal MRI with T1 in- and out of phase, T2, diffusion weighted, andprogressively delayed post-contrast images. Intravenous gadoliniumadministered. FINDINGS: No fatty infiltration of the liver. No focal abnormalities identified in the visualized portions of the liver,spleen, adrenal glands, and kidneys. No hydronephrosis. No adenopathy. Normal appearance of the head of the pancreas. Absence of the body andtail of the pancreas. No focal pancreatic lesions identified. No bile duct dilation. Normal size of the main pancreatic duct. Impression : 1. Normal appearance of the head of the pancreas. 2. 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 Dictated by Franco Lazar MD @ 01/06/2025 6:52:15 PM (Electronically Signed) Cedrick Seaman MD MR Final Result * XR DXA BONE DENSITY 2 SITES AXIAL (08/20/2022 9:22 AM CDT) Anatomical Region Laterality Modality Spine, HIPS, HIPL, HIPR Other Impressions 08/21/2022 3:22 PM CDT Normal bone density. RECOMMENDATIONS: The National Osteoporosis Foundation recommends pharmacologic treatment for patients with T-scores of -2.5 or less, patients with prior history of fragility fractures, or patients with 10-year probability of greater than 3% at hips or greater than 20% of suffering major osteoporotic fractures. Recommend continued optimization of calcium and vitamin D intake through dietary means and/or supplementation and regular exercise. Repeat scan recommended in 3-5 years. Criss Baron PA-C [employer] [facility] 08/21/2022 Narrative 08/21/2022 3:22 PM CDT For Patients: Results are automatically released to your [employer] ([employer]) account once available, in compliance with federal regulations. This means that you may see your results before your provider has had a chance to review them. Please allow 2-3 business days for your provider to comment on the results. XR DXA Bone Mineral Density (BMD) EXAM LOCATION: [facility] [address] [facility] [address] PATIENT NAME: Genie Fish DATE OF : 1945 EXAM DATE: 08/20/2022 REQUESTING PROVIDER: Jone Calvert MD GENDER AT : female HEIGHT: 5' 1.5 (07/30/2022) WEIGHT: 140 lb 12.8 oz (08/12/2022) MENOPAUSAL STATUS: Postmenopausal RACE/ETHNICITY: White RISK FACTORS: White Race CURRENT MEDICATION FOR BONE LOSS: NONE INDICATION: Post-Menopause and Follow-up of normal DXA COMPARISON DATE(S): None DXA scans are compared to prior studies for a patient only when the two (or more) studies were performed on the same scanner. It is not possible to compare data generated on one scanner to data from another because there are not standards in DXA equipment. This applies even if the two scanners are made by the same magnetic tape typewriter operator. PROCEDURE: Dual-energy x-ray absorptiometry performed with routine technique. Reporting is completed in the form of a T-score. The T-score represents the standard deviation from peak bone mass based on young healthy adult. A Z-score is used for diagnosis in premenopausal women, and for men under the age of 50. FINDINGS: RESULT LUMBAR SPINE L1 - L4 (L3) BMD: 1.376 g/cm2 T-Score: + 1.6 Z-Score: + 3.4 Change from prior: None RESULTS FEMUR Left femoral neck BMD: 1.365 g/cm2 T-Score: + 2.4 Z-Score: + 4.4 Change from prior: None Right femoral neck BMD: 1.429 g/cm2 T-Score: + 2.8 Z-Score: + 4.8 Change from prior: None Left hip BMD: 1.294 g/cm2 T-Score: + 2.3 Z-Score: + 4.1 Change from prior: None Right hip BMD: 1.249 g/cm2 T-Score: + 1.9 Z-Score: + 3.8 Change from prior: None WHO criteria: Normal: T-score at or above -1 SD Osteopenia: T-score between -1.1 and -2.4 SD Osteoporosis: T-score at or below -2.5 SD us Jone Calvert MD DEXA Final Result * ANTI HCV (07/03/2020 9:33 AM BRUSHER OPERATOR) HEPATITIS C ANTIBODY Non-React adelfo Non-React adelfo 07/05/2020 9:33 AM BRUSHER OPERATOR [facility] Comment:Antibodies to HCV no t detected; does not exclude the possibility of exposure to HCV. Blood BLOOD SPECIMEN / Unknown Butterfly / Unknown 07/03/2020 9:33 AM BRUSHER OPERATOR 07/03/2020 9:33 AM BRUSHER OPERATOR us Jone Calvert MD SEND OUTS Final Result [facility] [address] [place] [address], [place] from Last 3 Months or Most Recently Relevant to Health Maintenance Insurance * Guarantor: Genie Fish Account Type Relation to Patient Date of Phone Billing Address Personal/Family Self 1945 [id number] [place] [address] MEDICARE PART B HB ONLY MEDICARE PB ONLY MEDICARE PART A HB ONLY [facility] Advance Directives * Full Code (Latest Code Status on File) Date Activated Date Inactivated Comments 07/24/2020 7:55 AM 07/24/2020 2:01 PM Question Answer Comments Code Status Discussion: Discussed * Full Code Date Activated Date Inactivated Comments 01/18/2018 7:04 AM 01/18/2018 12:38 PM * Full Code Date Activated Date Inactivated Comments 01/18/2018 7:04 AM 01/18/2018 7:04 AM * Full Code Date Activated Date Inactivated Comments 03/02/2013 8:27 AM 03/02/2013 4:32 PM * Full Code Date Activated Date Inactivated Comments 04/18/2009 8:01 AM 04/18/2009 6:21 PM 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
--- NOTE | 2025-03-30 01:26 | CRLHL7_ITS ---
For Patients: As a result of the Century Cures Act, medical imaging exams and procedure reports are released immediately into your electronic medical record. You may view this report before your referring provider. If you have questions, please contact your health care provider. INDICATION: Chest pain. TECHNIQUE: Chest 1 view. COMPARISON: CT chest 09/09/2010. FINDINGS: Cardiovascular: Heart size and pulmonary vasculature are within normal limits. Lungs and pleural spaces: Chronic elevation of the left hemidiaphragm. Minimal left basilar atelectasis. No focal consolidation. No sign of pleural effusion or pneumothorax. Bones and soft tissues: No significant findings. IMPRESSION: No acute cardiopulmonary findings. Dictated by Linda Au MD @ 03/30/2025 2:47:08 AM (Electronically Signed)
--- NOTE | 2025-03-30 01:27 | ED.CHESTPAIN ---
HPI - Chest Pain General Chief Complaint: Chest Pain Stated Complaint: Chest pain Time Seen by Provider: 03/30/25 01:21 History of Present Illness HPI narrative: Patient is a 79-year-old woman who is having intermittent chest pain for the last 36 hours. She symptoms yesterday which her substernal without radiation no diaphoresis no nausea no vomiting. She was largely asymptomatic but had return of chest pain approximately 4 hours ago. Patient called the ambulance tonight and upon arrival portable EKG showed no acute abnormalities. Patient was given nitroglycerin and aspirin and was brought to the emergency room where vital signs run to be stable and her symptoms had resolved. Related Data Home Medications ?Medication ?Instructions ?Recorded ?Confirmed amlodipine 2.5 mg tablet 2.5 mg PO DAILY 01/04/22 03/25/24 famotidine 20 mg tablet 20 mg PO BID 01/04/22 03/25/24 latanoprost 0.005 % eye drops 1 drp ophthalmic (eye) DAILY 01/04/22 03/25/24 levothyroxine 100 mcg capsule 100 mcg PO DAILY 01/04/22 03/25/24 ubbonz-[id number]-[id number] 2 cap PO TID 01/04/22 03/25/24 (pork)36,000-114,000-180k unit capsule,del rel (Creon) losartan 50 mg tablet 50 mg PO BID 01/04/22 03/25/24 triamterene 37.5 1 cap PO DAILY 01/04/22 03/25/24 mg-hydrochlorothiazide 25 mg capsule atorvastatin 20 mg tablet 20 mg PO DAILY 01/14/23 03/25/24 levothyroxine 88 mcg tablet 88 mcg PO 3XW 01/14/23 03/25/24 omeprazole 20 mg capsule,delayed 20 mg PO DAILY 01/14/23 03/25/24 release Previous Rx's ?Medication ?Instructions ?Recorded meclizine 25 mg tablet 25 mg PO QID #20 tabs 01/04/22 Allergies Allergy/AdvReac Type Severity Reaction Status Date / Time Sulfa (Sulfonamide Allergy Mild Hives Verified 03/30/25 01:26 Antibiotics) Review of Systems Status of ROS Reports: 10 or more systems reviewed and unremarkable except as noted in History and below [facility] Medical History Bacterial vaginosis ?N76.0 - Acute vaginitis (ICD-10) ?B96.89 - Other specified bacterial agents as the cause of diseases classified elsewhere (ICD-10) Social History Smoking Status: Never smoker Second hand tobacco smoke exposure: No How often do you have a drink containing alcohol: monthly or less AUDIT-C Alcohol total score: 1 Non-prescribed substance use: denies use Exam Narrative Exam Narrative: EXAM GENERAL: Patient appears comfortable and well. EYES: No scleral icterus. LYMPH: No supraclavicular or cervical lymphadenopathy. SKIN: Visible skin seen during exam normal or with benign process only. EXT: No dependent lower extremity pedal edema. HEART: Regular rate and rhythm with no murmurs, rubs, or gallops. LUNGS: Clear to auscultation bilaterally with no crackles or wheezes. ABD: Soft, non tender, non distended. PSYCH: Good eye contact, speech is not pressured. Const Vital Signs, click to edit/add: Vital Signs - 24 hr 03/30/25 01:23 03/30/25 01:30 03/30/25 01:33 Temperature 98.3 F Pulse Rate 64 Pulse Rate [Right Pulse Oximeter] 58 L Respiratory Rate 16 24 Blood Pressure Blood Pressure [Right Upper Arm] 179/80 H Pulse Oximetry 98 97 95 Oxygen Delivery Method Room Air 03/30/25 01:36 03/30/25 01:45 03/30/25 01:47 Temperature Pulse Rate 60 59 L 56 L Pulse Rate [Right Pulse Oximeter] Respiratory Rate 13 14 15 Blood Pressure 154/83 H 161/80 H Blood Pressure [Right Upper Arm] Pulse Oximetry 97 97 97 Oxygen Delivery Method 03/30/25 02:00 03/30/25 02:05 03/30/25 02:15 Temperature Pulse Rate 58 L 55 L 59 L Pulse Rate [Right Pulse Oximeter] Respiratory Rate 16 16 16 Blood Pressure Blood Pressure [Right Upper Arm] Pulse Oximetry 97 96 94 Oxygen Delivery Method 03/30/25 02:20 03/30/25 02:30 Temperature Pulse Rate 58 L 56 L Pulse Rate [Right Pulse Oximeter] Respiratory Rate 16 16 Blood Pressure 137/68 Blood Pressure [Right Upper Arm] Pulse Oximetry 95 97 Oxygen Delivery Method Course Course ED Course: Patient seen examined. Twelve lead EKG portable chest x-ray troponin D-dimer CBC basic metabolic panel pending. Vital Signs Vital signs: Initial Vital Signs Temperature 98.3 F 03/30/25 01:23 Temperature Source Temporal Artery Scan 03/30/25 01:23 Pulse Rate 58 L 03/30/25 01:23 Pulse Rhythm Regular 03/30/25 01:23 Pulse Strength 3+ Normal 03/30/25 01:23 Respiratory Rate 16 03/30/25 01:23 Blood Pressure 179/80 H 03/30/25 01:23 Blood Pressure Mean 113 H 03/30/25 01:23 Blood Pressure Position Sitting 03/30/25 01:23 Pulse Oximetry 98 03/30/25 01:23 Oxygen Delivery Method Room Air 03/30/25 01:23 Vital Signs Temperature 98.3 F 03/30/25 01:23 Pulse Rate 58 L 03/30/25 01:23 Respiratory Rate 16 03/30/25 01:23 Blood Pressure 179/80 H 03/30/25 01:23 Pulse Oximetry 98 03/30/25 01:23 Oxygen Delivery Method Room Air 03/30/25 01:23 Temperature 98.3 F 03/30/25 01:23 Pulse Rate 56 L 03/30/25 02:30 Respiratory Rate 16 03/30/25 02:30 Blood Pressure 137/68 03/30/25 02:30 Pulse Oximetry 97 03/30/25 02:30 Oxygen Delivery Method Room Air 03/30/25 01:23 MDM - Chest Pain MDM Narrative Medical decision making narrative: Patient presents with chest pain over the last 36 hours. Troponin is negative D-dimer borderline. I did do CT of her chest PE protocol that is negative for blood clot. She is noted to be mildly anemic and hyponatremic. I did inform her of these results. She is resting comfortably EKG was without acute abnormality. I did recommend follow-up with her primary physician. Otherwise symptomatic treatment return if symptoms return. Lab Data Labs: Lab Results 03/30/25 Range/Units 01:30 WBC 7.14 (4.50-11.00) K/uL RBC 3.83 L (4.00-5.20) m/uL Hgb 11.0 L (12.0-16.0) gm/dL Hct 33.3 (33.0-51.0) % MCV 87 (80-100) fL MCH 29 (26-34) pg MCHC 33 (32-36) gm/dL RDW Coeff of Johanna 11.9 (11.5-15.5) % Plt Count 308 (140-440) K/uL Neut % (Auto) 60.9 (42.0-72.0) % Lymph % (Auto) 24.5 (20-44) % [place] % (Auto) 11.9 H (0.0-11.0) % Eos % (Auto) 2.2 (0.0-7.0) % Baso % (Auto) 0.4 (0.0-3.0) % Neut # (Auto) 4.34 (1.7-7.0) K/uL Lymph # (Auto) 1.75 (0.90-2.90) K/uL [place] # (Auto) 0.80 (0.00-0.90) K/UL Eos # (Auto) 0.16 (0.00-0.50) K/uL Baso # (Auto) 0.03 (0.00-0.30) K/uL Abs Immat Gran (auto) 0.01 (0.00-0.30) K/uL Imm/Tot Granulo (auto) 0.1 % D-Dimer Quant (PE/DVT) 1.08 H (0.00-0.50) ug/ml Sodium 127 L (135-149) mmol/L Potassium 3.5 L (3.6-5.1) mmol/L Chloride 91 L (96-114) mmol/L Carbon Dioxide 26 (20-32) mmol/L Anion Gap 10 (7-15) mEq/L BUN 16 (7-30) mg/dL Creatinine 0.6 (0.5-1.5) mg/dL Estimated Creat Clear 46.02 Estimated GFR 91 ml/min Glucose 122 H (60-115) mg/dL Calcium 8.9 (8.4-10.6) mg/dL Total Bilirubin 0.6 (0.1-1.5) mg/dL AST 29 (12-35) U/L ALT 20 (4-35) U/L Alkaline Phosphatase 90 (40-150) U/L Troponin I < 0.01 (0.01-0.04) ng/mL Total Protein 7.2 (6.0-8.3) g/dL Albumin 4.2 (3.3-5.0) g/dL Discharge Plan Discharge Clinical Impression: Chest pain Patient Disposition: Home, Self-Care Condition: Stable Instructions: Chest Pain (ED) Activity Level: No Restrictions Discharge Diet: Regular Prescriptions: No Action losartan 50 mg tablet 50 mg PO BID latanoprost 0.005 % drops 1 drp ophthalmic (eye) DAILY amlodipine 2.5 mg tablet 2.5 mg PO DAILY triamterene-hydrochlorothiazid 37.5-25 mg capsule 1 cap PO DAILY famotidine 20 mg tablet 20 mg PO BID Creon 36,000-114,000- 180,000 unit capsule,delayed release(DR/EC) 2 cap PO TID levothyroxine 100 mcg capsule 100 mcg PO DAILY meclizine 25 mg tablet 25 mg PO QID Qty: 20 0RF atorvastatin 20 mg tablet 20 mg PO DAILY levothyroxine 88 mcg tablet 88 mcg PO 3XW omeprazole 20 mg capsule,delayed release(DR/EC) 20 mg PO DAILY Follow Up/Referrals: Jone Calvert MD [Primary Care Provider, Family Practice] Stand Alone Forms: [employer] by [employer] Info Instructions
[2025-03-30 01:36] LABS: Hematocrit* 33.3 % (33.0-51.0); Hemoglobin* 11.0 gm/dL (12.0-16.0); Immature Granulocytes Abs Auto 0.01 K/uL (0.00-0.30); Immature Granulocytes Pct Auto 0.1 %; Lymphocytes Absolute Auto 1.75 K/uL (0.90-2.90); Mean Corpuscular HGB Conc 33 gm/dL (32-36); Mean Corpuscular Hemoglobin 29 pg (26-34); Mean Corpuscular Volume 87 fL (80-100); RDW Coefficient of Variation % 11.9 % (11.5-15.5); Red Blood Count* 3.83 m/uL (4.00-5.20); White Blood Count* 7.14 K/uL (4.50-11.00)
[2025-03-30 01:45] LABS: Slide Review Reflex No
[2025-03-30 01:48] LABS: Albumin* 4.2 g/dL (3.3-5.0); Chloride* 91 mmol/L (96-114); Potassium* 3.5 mmol/L (3.6-5.1); Sodium* 127 mmol/L (135-149)
[2025-03-30 01:51] LABS: Alanine Aminotransferase* 20 U/L (4-35); Alkaline Phosphatase* 90 U/L (40-150); Anion Gap 10 mEq/L (7-15); Aspartate Amino Transferase* 29 U/L (12-35); Bilirubin Total* 0.6 mg/dL (0.1-1.5); Blood Urea Nitrogen* 16 mg/dL (7-30); Calcium* 8.9 mg/dL (8.4-10.6); Carbon Dioxide* 26 mmol/L (20-32); Creatinine* 0.6 mg/dL (0.5-1.5); Est. Creatinine Clearance* 46.02; Estimated Glomerular Filt Rate 91 ml/min; Glucose* 122 mg/dL (60-115); Total Protein* 7.2 g/dL (6.0-8.3)
[2025-03-30 01:53] LABS: D Dimer Quantitative* 1.08 ug/ml (0.00-0.50)
--- NOTE | 2025-03-30 02:12 | CRLHL7_ITS ---
For Patients: As a result of the Century Cures Act, medical imaging exams and procedure reports are released immediately into your electronic medical record. You may view this report before your referring provider. If you have questions, please contact your health care provider. INDICATION: Pulmonary embolism (PE) suspected, positive D-dimer. TECHNIQUE: CT chest PE was acquired with 95 cc Isovue 370 IV contrast. Multiplanar reformats were performed including 3D MIP reconstructions. COMPARISON: Chest x-ray 03/30/2025. FINDINGS: Heart and vasculature: No pulmonary embolism. Main pulmonary artery is normal in caliber. No thoracic aortic aneurysm. No cardiomegaly or pericardial effusion. No CT evidence of right heart strain. Lungs and pleura: Left lung base atelectasis versus consolidation. No pleural effusion or pneumothorax. Lymph nodes/mediastinum: No suspicious lymphadenopathy. Chest wall: No suspicious chest wall mass or fluid collection. No axillary lymphadenopathy. Upper abdomen: No acute abnormality. Bones: No acute abnormality. IMPRESSION: 1. No pulmonary embolism identified. 2. Left lung base atelectasis versus consolidation. Please note that all CT scans at this facility use dose modulation, iterative reconstruction, and/or weight-based dosing when appropriate to reduce radiation dose to as low as reasonably achievable. Dictated by Arjun Marr MD @ 03/30/2025 3:10:43 AM (Electronically Signed)
== END 2025-03-30 03:41 | disposition home or self-care (01) ==
PROVIDERS: Emergency Provider Internal Medicine; PCP Family Medicine
DX: R07.9 Chest pain, unspecified (principal)
CPT/HCPCS: 36415; 71045; 71275; 80053; 84484; 85025; 85379; 93005; 94761; 99283; 99284; 99285; Q9967

== ENCOUNTER 2025-04-26 14:20 | Outpatient (CLI) | payer MEDICARE, OTHER, SELFPAY | END 2025-04-26 14:21 | disposition home or self-care (01) | LOC: AMB 04-30 16:32 | PROVIDERS: PCP Family Medicine; Visit Provider Family Medicine | DX: R41.0 Disorientation, unspecified (principal) | CPT/HCPCS: A0425; A0427 ==

== ENCOUNTER 2025-04-26 14:49 | Inpatient (IN) | payer MEDICARE, OTHER, SELFPAY ==
[2025-04-26] VITALS (47 sets, daily range): BP systolic 144–215; BP diastolic 66–106; PULSE 55–79; RESP 8–18; TEMP 36.5–36.8; O2SAT 92–98; BMI 23.4
--- NOTE | 2025-04-26 14:51 | CRLHL7_ITS ---
For Patients: As a result of the Century Cures Act, medical imaging exams and procedure reports are released immediately into your electronic medical record. You may view this report before your referring provider. If you have questions, please contact your health care provider. INDICATION: Code stroke COMPARISON: None. TECHNIQUE: CT of the head without contrast. FINDINGS: Brain, ventricles, and extra-axial spaces: No acute intracranial hemorrhage. Hoffmann-white differentiation is grossly preserved. Mild hypoattenuating changes in the white matter which are nonspecific, but commonly attributable to chronic microangiopathic change. Mild parenchymal volume loss with commensurate size of the ventricles and sulci. There are intracranial vascular calcifications. Bones: No acute osseous findings. There is an opacified left ethmoid air cell. Mild mucosal thickening in the left frontal sinus. Visualized mastoid air cells are clear. Additional findings: Status post bilateral lens replacement. IMPRESSION: 1. No acute intracranial noncontrast CT findings. 2. Mild brain parenchymal involutional changes. Findings discussed via telephone at 1:03 p.m. [place] standard time April 26, [address] Ariza. Please note that all CT scans at this facility use dose modulation, iterative reconstruction, and/or weight-based dosing when appropriate to reduce radiation dose to as low as reasonably achievable. Dictated by Delvis Arias MD @ 04/26/2025 3:06:11 PM (Electronically Signed)
--- NOTE | 2025-04-26 14:54 | ED.GENADULT ---
HPI - General Adult General Date Seen: 04/26/25 Chief complaint: Altered Mental Status Stated complaint: stroke symptoms Time Seen by Provider: 04/26/25 14:53 History of Present Illness HPI narrative: 79 yo F presenting to the ER today by EMS. She sent in from the clinic with for possible stroke symptoms. Report from paramedics is that symptoms began around 11 30 this morning where she had some trouble remembering words and names of people. Per clinic notes... nurse notes: Patient comes in with concerns over confusion that started today, around noon Patient not oriented to date, or name at first ask, minimally oriented to situation, oriented to place and year Patient's speech appears delayed, reporting concerns over swollen ankles and possibly swollen face BP 230/102, 253/117, 241/113 Doc notes: Patient reports she is under extreme stress as her was recently placed in half-way and son has stage IV cancer. Patient reports she came to urgent care today because she is having difficulty recalling common names of people she knows and situations. Patient reports she thinks the symptoms began around noon today. Patient reports she did take her medications this morning. Patient denies recent illness. It is unclear patient is diabetic or not as she cannot seem to recall. Patient reports minimal intake today. Per clinic note from last March, she was on amlodipine, losartan, triamterene/hydrochlorothiazide, levothyroxine, omeprazole, levothyroxine She was healthy and well this morning. She felt fine with no symptoms. She actually went to the [employer] late morning to practice for a vocal so low that she is planning to sing at [employer] this year. As she was finishing that, at around 11 30 or new abrupt onset of confusion and trouble remembering names and words that began at around late morning or around noon this afternoon. No headache. No visual disturbance. No chest pain. No trouble breathing. No nausea vomiting. She also endorses significant psychosocial stress. Her has been dieting of chronic heart failure for the past few years and has been on hospice for more than 2 years but just entered into a half-way this week because of frailty and failing to thrive at home. Her son also was recently diagnosed with an advanced stage cancer a couple of weeks ago. per records through [facility] link patient has a past medical history of hypertension, venous insufficiency, aortic stenosis, hyperlipidemia, hypothyroidism, type 2 diabetes, history of hyponatremia, GERD, depression, home stress Current medication list includes Vitamin-D Cranberry Creon estradiol cream As a Gomez they Iron Levothyroxine Losartan Magnesium methyrlsulfonylmethane capsules Multivitamins Omeprazole 20 mg Potassium chloride Psyllium spironolactone 25 mg Zinc She has been working with her doctor but cannot remember his name (possibly Dr. Calvert) because of recent development of edema affecting both of her legs. It has been the swelling for the past 3 or 4 weeks. She has never had trouble with leg swelling the past, she says. She also remembers that she had a consultation with a vascular surgeon or your to ago because she had swelling in her legs and wanted to find out if she had lymphedema or not. She apparently had a vascular surgery procedure on the veins of her legs to help with that problem. It does look like she had a visit with Dr. Zuniga when on 04/20. Per that note she had elevated blood pressure, edema in her arms and legs and face. Also stressed with her moving to half-way. Home blood pressures ranging 160-71 systolic/89-93 diastolic. No cardiopulmonary symptoms. No meds were prescribed but suspect related due to stress and work and have a follow-up next week. She does apparently have longstanding lip edema. Echo 04/06 Final Impressions: 1. Normal LV size, mildly increased wall thickness, normal global systolic function with an estimated EF of 65 - 70%. 2. Right ventricular cavity size is normal, global systolic RV function is normal. 3. Moderately enlarged left atrium. 4. The aortic valve is calcified and trileaflet, mild stenosis and mild regurgitation. 5. The inferior vena cava is normal sized, respiratory size variation greater than 50%. She had a visit with Dr. Meza, [facility], recommended echocardiogram on 04/06 on 04/02 She also had an ER visit 03/30 for chest pain...intermittent chest pain for last 36 hrs. Given nitro and ASA in the ambulance and transported to ER. By the time at ER, chest pain resolved. Troponin negative. Ddimerr boarderline. CTA chest normal. Mild anemia and mild hyponatremia. EKG normal. Related Data Home Medications ?Medication ?Instructions ?Recorded ?Confirmed amlodipine 2.5 mg tablet 2.5 mg PO DAILY 01/04/22 03/25/24 famotidine 20 mg tablet 20 mg PO BID 01/04/22 03/25/24 latanoprost 0.005 % eye drops 1 drp ophthalmic (eye) DAILY 01/04/22 03/25/24 levothyroxine 100 mcg capsule 100 mcg PO DAILY 01/04/22 04/26/25 rcodzw-[id number]-[id number] 2 cap PO TID 01/04/22 03/25/24 (pork)36,000-114,000-180k unit capsule,del rel (Creon) losartan 50 mg tablet 50 mg PO BID 01/04/22 04/26/25 triamterene 37.5 1 cap PO DAILY 01/04/22 04/26/25 mg-hydrochlorothiazide 25 mg capsule levothyroxine 88 mcg tablet 88 mcg PO 3XW 01/14/23 03/25/24 omeprazole 20 mg capsule,delayed 20 mg PO DAILY 01/14/23 04/26/25 release estradiol 0.01% (0.1 mg/gram) g vaginal 2XW 04/26/25 04/26/25 vaginal cream ezetimibe 10 mg tablet 10 mg PO DAILY 04/26/25 04/26/25 fluticasone propionate 50 spray intranasal 04/26/25 04/26/25 mcg/actuation nasal spray,suspension latanoprostene bunod 0.024 % eye 1 drp ophthalmic (eye) QPM 04/26/25 04/26/25 drops (Vyzulta) levothyroxine 100 mcg tablet mcg PO 04/26/25 04/26/25 (Synthroid) potassium chloride 10 mEq 10 meq PO BID 04/26/25 04/26/25 tablet,extended release(part/cryst) timolol maleate 0.5 % eye drops drp ophthalmic (eye) 04/26/25 04/26/25 Previous Rx's ?Medication ?Instructions ?Recorded meclizine 25 mg tablet 25 mg PO QID #20 tabs 01/04/22 Allergies Allergy/AdvReac Type Severity Reaction Status Date / Time Sulfa (Sulfonamide Allergy Mild Hives Verified 04/26/25 14:03 Antibiotics) [facility] Medical History Bacterial vaginosis ?N76.0 - Acute vaginitis (ICD-10) ?B96.89 - Other specified bacterial agents as the cause of diseases classified elsewhere (ICD-10) Social History Smoking Status: Never smoker Second hand tobacco smoke exposure: No How often do you have a drink containing alcohol: monthly or less AUDIT-C Alcohol total score: 1 Non-prescribed substance use: denies use Exam Narrative: Exam Narrative: Primary Survey: A- patent. Speaking slowly and haltingly. At times she seems fairly conversant and other times she seems to forget important details, such the name of her primary care provider. Phonation normal. No stridor. B- breathing easily. Lung sounds clear and equal. Oxygen saturation normal on room air C- no active bleeding. Blood pressure stable. Symmetric pulses and cap refill in 4 extremities. D- alert and oriented x3. GCS 15. No focal deficits. Constitutional: Appears well-developed and well-nourished. Alert. Conversant. Non toxic. HENT: Head: Atraumatic. Nose: Nose normal. Mouth/Throat: Oral mucosa is clear and moist. no trismus. Pharynx normal. Tonsils symmetric. No tonsillar enlargement, erythema, or exudate. Eyes: Conjunctivae normal. EOM normal. Pupils equal, round, and reactive to light. No scleral icterus. Neck: Normal range of motion. Neck supple. No tracheal deviation present. No JVD Cardiovascular: Normal rate, regular rhythm. No gallop. No friction rub. Systolic murmur heard. Symmetric radial artery pulses Pulmonary/Chest: Effort normal. No stridor. No respiratory distress. No wheezes. No rales. No rhonchi . No tenderness. Abdominal: Soft. No distension. No mass. No tenderness. No rebound. No guarding. Musculoskeletal: RUE: Normal range of motion. No tenderness. No deformity LUE: Normal range of motion. No tenderness. No deformity RLE: Normal range of motion. 3+ edema. No tenderness. No deformity LLE: Normal range of motion. 3+ edema. No tenderness. No deformity Neurological: Mental status normal. Attention normal. Alert and oriented x3. GCS 15. Short-term memory seems impaired. She is repeating herself here in the ER. She also has trouble recalling details of her son's diagnosis and some of her doctor's names. At other times her memory seems to be completely intact.. Speech is slow at times because she is struggling to recall words (for instance the name of her PCP, Dr. Calvert) but there is no slurring or dysarthria.. Cognition otherwise normal. She is following commands appropriately. Cranial Nerves intact II-XII except I did not formally test gag or visual acuity. EOMI. Palate elevates symmetrically and tongue protrudes in the midline. Strength: 5/5 trapezius on the right and left 5/5 deltoid on the right and left 5/5 biceps on the right and left 5/5 triceps on the right and left 5/5 geometry professor on the right and left 5/5 thumb opposition on the right and left 5/5 finger abduction on the right and left 5/5 hip flexors (L3) on the right and left 5/5 quadriceps (L4) on the right and left 5/5 tibialis anterior on the right and left 5/5 EHL (L5) on the right and left 5/5 gastrocnemius (S1) on the right and left 5/5 hamstring on the right and left Sensation intact to light touch in both upper extremities (C4-T1) Sensation intact to light touch in Both lower extremities (L4-S1). Finger to nose and coordination normal. Skin: Skin is warm and dry. No rash noted. No pallor. Normal capillary refill. Psychiatric: Flat affect. In sources tremendous psychosocial stress. Her is chronically ill and on hospice due to cardiac amyloidosis and chronic CHF. He has gotten so frail that she is not able to care for him at home and she just got him into a half-way on Wednesday, 4 days ago. Also a couple weeks ago 1 of her sons was diagnosed with a advanced stage of cancer that sounds like it is incurable. She is grieving that and feels like she needs to be there for him, but also needs to be there for her . She delivers this information and somewhat halting fashion and often times forgets details. She tells me 3 times during her ER course the same side of information about her and son. It almost appears to be that she is having some short-term amnesia and not recalling what she has told me already. She says she was doing well this morning even went to [employer] to practice or so for [employer] Const: Vital Signs, click to edit/add: Vital Signs - 24 hr 04/26/25 14:56 04/26/25 15:00 04/26/25 15:01 Temperature 98 F Pulse Rate 61 60 Pulse Rate [Pulse Oximeter] 60 Respiratory Rate 18 18 Blood Pressure 206/87 H Blood Pressure [Le ft Upper Arm] 206/87 H Pulse Oximetry 97 96 96 Oxygen Delivery Me thod Room Air 04/26/25 15:15 04/26/25 15:17 04/26/25 15:18 Temperature Pulse Rate 62 79 64 Pulse Rate [Pulse Oximeter] Respiratory Rate 16 Blood Pressure 215/106 H Blood Pressure [Le ft Upper Arm] Pulse Oximetry 97 97 96 Oxygen Delivery Me thod 04/26/25 15:49 04/26/25 15:53 04/26/25 16:00 Temperature Pulse Rate 61 57 L 61 Pulse Rate [Pulse Oximeter] Respiratory Rate 16 Blood Pressure 199/83 H Blood Pressure [Le ft Upper Arm] Pulse Oximetry 96 97 97 Oxygen Delivery Me thod 04/26/25 16:15 04/26/25 16:17 04/26/25 16:30 Temperature Pulse Rate 56 L 59 L 57 L Pulse Rate [Pulse Oximeter] Respiratory Rate 13 18 Blood Pressure 184/86 H Blood Pressure [Le ft Upper Arm] Pulse Oximetry 94 97 93 Oxygen Delivery Me thod 04/26/25 16:32 04/26/25 16:33 04/26/25 16:45 Temperature Pulse Rate 56 L 59 L 55 L Pulse Rate [Pulse Oximeter] Respiratory Rate 18 14 Blood Pressure 186/84 H Blood Pressure [Le ft Upper Arm] Pulse Oximetry 93 92 93 Oxygen Delivery Me thod 04/26/25 16:47 04/26/25 17:00 04/26/25 17:01 Temperature Pulse Rate 55 L 56 L 57 L Pulse Rate [Pulse Oximeter] Respiratory Rate 11 L Blood Pressure 162/76 H 167/78 H Blood Pressure [Le ft Upper Arm] Pulse Oximetry 94 93 92 Oxygen Delivery Me thod 04/26/25 17:15 04/26/25 17:17 04/26/25 17:32 Temperature Pulse Rate 57 L 57 L Pulse Rate [Pulse Oximeter] Respiratory Rate 13 12 Blood Pressure 156/67 H 167/91 H Blood Pressure [Le ft Upper Arm] Pulse Oximetry 93 93 Oxygen Delivery Me thod 04/26/25 17:33 04/26/25 17:45 04/26/25 17:47 Temperature Pulse Rate 66 Pulse Rate [Pulse Oximeter] Respiratory Rate 12 12 Blood Pressure 158/79 H Blood Pressure [Le ft Upper Arm] Pulse Oximetry 97 Oxygen Delivery Me thod 04/26/25 18:00 04/26/25 18:02 04/26/25 18:15 Temperature Pulse Rate 64 64 66 Pulse Rate [Pulse Oximeter] Respiratory Rate Blood Pressure 168/78 H Blood Pressure [Le ft Upper Arm] Pulse Oximetry 96 98 94 Oxygen Delivery Me thod 04/26/25 18:17 04/26/25 18:30 04/26/25 18:32 Temperature Pulse Rate 64 64 70 Pulse Rate [Pulse Oximeter] Respiratory Rate 12 15 Blood Pressure 176/81 H 180/80 H Blood Pressure [Le ft Upper Arm] Pulse Oximetry 95 93 93 Oxygen Delivery Me thod 04/26/25 18:45 04/26/25 18:47 Temperature Pulse Rate 62 64 Pulse Rate [Pulse Oximeter] Respiratory Rate 14 Blood Pressure 173/76 H Blood Pressure [Le ft Upper Arm] Pulse Oximetry 95 95 Oxygen Delivery Me thod Course Course ED Course: Patient arrived by EMS from the urgent care and was a stroke activation. We met the patient in the ER hallway and took her directly to CT scanner. Initial evaluation showed somewhat slow, halting speech, but no other focal deficits and no facial droop. No unilateral weakness. Stat noncontrast head CT is obtained and was ultimately normal. Speech stroke consult with Stroke Neurology, Dr. Celeste. He evaluated the patient by tele neurology. Follow-up from him was delayed by couple of hours. Ultimately, his recommendations are that the patient is not a candidate for IV thrombolysis. He suspects possibly could be related to conversion disorder or possibly hypertensive encephalopathy. If blood pressure does not come down, admit for blood pressure treatment. He would recommend aspirin 81 mg daily for primary stroke prophylaxis. While this was going on we did do further workup. Blood sugar is normal. Electrolytes normal save for borderline potassium at 3.5. She has a history of hyponatremia sodium is 136 today. Lactic acid is. She is not febrile and white count is normal so I doubt meningitis or encephalitis as a cause for her confusion. No other clear infection. She was treated with Ativan 0.5 mg IV. After this she said she felt sleepy. No other definite change. Still some halting speech. Of note though, her blood pressure came down from elevated levels above 200 systolic down to about 160 systolic which seems to correlate with her recent blood pressure readings from the [facility]. Troponin is mildly abnormal at 14.8 in 2 hour delta troponin is essentially flat, up by 2.3 points up to 17.1. EKG shows nonspecific changes and T-wave inversions in V1-V3 that are pretty similar to her EKG from last month. Discussed with cardiology, from [facility], Dr. Gibbs. In the absence of any chest pain, shortness of breath, or other clear anginal symptoms he is we suspect that this is troponin is probably related to demand ischemia from hypertension and not ACS. Cardiology does not feel she needs transfer for catheterization today. I think that is reasonable. We also discussed the potential for nerve evolving takotsubo cardiomyopathy. She did have an echo of about 3 weeks ago that was essentially normal. Cardiology would recommend repeating echo if she does develop signs of CHF. Ultimately, given the patient's persistent altered mental status, I feel that admission for monitoring overnight with MRI in the morning is indicated. Additionally we can trend troponins overnight to make sure does not rise. Also monitor blood pressure for any other spikes and optimize her antihypertensive regimen. Discussed with the patient and she is in agreement. Discussed with her son, Aditya, by phone he is in agreement. Discussed with our hospitalist, Dr. Rolle who agrees to admit. Vital Signs Vital signs: Initial Vital Signs Temperature 98 F 04/26/25 14:56 Temperature Source Temporal Artery Scan 04/26/25 14:56 Pulse Rate 60 04/26/25 14:56 Respiratory Rate 18 04/26/25 14:56 Blood Pressure 206/87 H 04/26/25 14:56 Blood Pressure Mean 126 H 04/26/25 14:56 Blood Pressure Position Sitting 04/26/25 14:56 Pulse Oximetry 97 04/26/25 14:56 Oxygen Delivery Method Room Air 04/26/25 14:56 Vital Signs Temperature 98 F 04/26/25 14:56 Pulse Rate 60 04/26/25 14:56 Respiratory Rate 18 04/26/25 14:56 Blood Pressure 206/87 H 04/26/25 14:56 Pulse Oximetry 97 04/26/25 14:56 Oxygen Delivery Method Room Air 04/26/25 14:56 Temperature 98 F 04/26/25 14:56 Pulse Rate 64 04/26/25 18:47 Respiratory Rate 14 04/26/25 18:45 Blood Pressure 173/76 H 04/26/25 18:47 Pulse Oximetry 95 04/26/25 18:47 Oxygen Delivery Method Room Air 04/26/25 14:56 Medications Administered Medications: Discontinued Medications Generic Name Dose Route Start Last Admin Trade Name Arlyn PRN Reason Stop Dose Admin Lorazepam 0.5 mg 04/26/25 14:59 04/26/25 16:18 Lorazepam 2 Mg/Ml Inj IVP 04/26/25 15:00 0.5 mg ONCE ONE Administration Medical Decision Making MDM Narrative Medical decision making narrative: Pleasant 79-year-old female presenting to the ER today with abrupt onset of confusion and trouble remembering names and words that began at around late morning or around noon this afternoon. No other focal deficits on her initial exam She was a stroke be activation and was sent for stat noncontrast head CT. This was normal by my read and per Radiology. 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 The remainder of her cervical and proximal intracranial vasculature are patent. Other workup shows normal urinalysis, negative alcohol level. Normal thyroid. Normal kidney function, blood sugar, electrolytes save for borderline low potassium at 3.5. She is not having any difficulty breathing and venous blood gas shows a normal pH and pCO2. She is not anticoagulated INR is normal. CBC is normal. She does not have a fever or any other symptoms of infection. She also endorses significant psychosocial stress. Her has been dieting of chronic heart failure for the past few years and has been on hospice for more than 2 years but just entered into a half-way this week because of frailty and failing to thrive at home. Her son also was recently diagnosed with an advanced stage cancer a couple of weeks ago. Lab Data Labs: Lab Results 04/26/25 04/26/25 04/26/25 Range/Units 14:58 15:20 15:45 WBC 6.73 (4.50-11.00) K/uL RBC 4.14 (4.00-5.20) m/uL Hgb 11.9 L (12.0-16.0) gm/dL Hct 35.2 (33.0-51.0) % MCV 85 (80-100) fL MCH 29 (26-34) pg MCHC 34 (32-36) gm/dL RDW Coeff of Johanna 12.2 (11.5-15.5) % Plt Count 273 (140-440) K/uL Neut % (Auto) 65.7 (42.0-72.0) % Lymph % (Auto) 22.1 (20-44) % Mcclain % (Auto) 10.1 (0.0-11.0) % Eos % (Auto) 1.6 (0.0-7.0) % Baso % (Auto) 0.4 (0.0-3.0) % Neut # (Auto) 4.41 (1.7-7.0) K/uL Lymph # (Auto) 1.49 (0.90-2.90) K/uL Mcclain # (Auto) 0.70 (0.00-0.90) K/UL Eos # (Auto) 0.11 (0.00-0.50) K/uL Baso # (Auto) 0.03 (0.00-0.30) K/uL Abs Immat Gran (auto) 0.01 (0.00-0.30) K/uL Imm/Tot Granulo (auto) 0.1 % INR 0.93 (0.91-1.10) VBG pH 7.431 H (7.32-7.43) VBG pCO2 47 (40-50) mmHG VBG pO2 31.2 (25-47) mmHG VBG HCO3 31 H (21-28) mmol/L Sodium 136 (135-149) mmol/L Potassium 3.5 L (3.6-5.1) mmol/L Chloride 96 (96-114) mmol/L Carbon Dioxide 30 (20-32) mmol/L Anion Gap 10 (7-15) mEq/L BUN 17 (7-30) mg/dL Creatinine 0.6 (0.5-1.5) mg/dL Estimated Creat Clear 46.02 Estimated GFR 91 ml/min Glucose 99 (60-115) mg/dL Lactate 0.8 (0.5-1.9) mmol/L Calcium 9.5 (8.4-10.6) mg/dL Total Bilirubin 0.8 (0.1-1.5) mg/dL AST 33 (12-35) U/L ALT 21 (4-35) U/L Alkaline Phosphatase 73 (40-150) U/L POC Troponin I High Sensi 14.8 H* (2.9-13.0) pg/mL NT-Pro-B Natriuret Pep 381 H (See Note) pg/mL Total Protein 7.5 (6.0-8.3) g/dL Albumin 4.4 (3.3-5.0) g/dL TSH 0.787 (0.270-4.200) uIU/mL Urine Color Yellow (Yellow) Urine Appearance Clear (Clear) Urine pH 7.5 (5.0-8.5) Ur Specific [place] 1.015 (1.000-1.030) Urine Protein Negative (Negative) Urine Glucose (UA) Negative (Negative) Urine Ketones Negative (Negative) Urine Blood Trace-intact A (Negative) Urine Nitrite Negative (Negative) Urine Bilirubin Negative (Negative) Urine Urobilinogen 0.2 (0.2-1.0) Ur Leukocyte Esterase Negative (Negative) Urine RBC 0-2 (0-2) Urine WBC 0-2 (0-5) Ur Squamous Epith Cells None (None-Few) Urine Bacteria None (None) Ethyl Alcohol < 0.01 (0.01-0.03) % Lab Acknowledgement 04/26/25 04/26/25 04/26/25 Range/Units 16:55 18:21 18:40 WBC (4.50-11.00) K/uL RBC (4.00-5.20) m/uL Hgb (12.0-16.0) gm/dL Hct (33.0-51.0) % MCV (80-100) fL MCH (26-34) pg MCHC (32-36) gm/dL RDW Coeff of Johanna (11.5-15.5) % Plt Count (140-440) K/uL Neut % (Auto) (42.0-72.0) % Lymph % (Auto) (20-44) % Mcclain % (Auto) (0.0-11.0) % Eos % (Auto) (0.0-7.0) % Baso % (Auto) (0.0-3.0) % Neut # (Auto) (1.7-7.0) K/uL Lymph # (Auto) (0.90-2.90) K/uL [place] # (Auto) (0.00-0.90) K/UL Eos # (Auto) (0.00-0.50) K/uL Baso # (Auto) (0.00-0.30) K/uL Abs Immat Gran (auto) (0.00-0.30) K/uL Imm/Tot Granulo (auto) % INR (0.91-1.10) VBG pH (7.32-7.43) VBG pCO2 (40-50) mmHG VBG pO2 (25-47) mmHG VBG HCO3 (21-28) mmol/L Sodium (135-149) mmol/L Potassium (3.6-5.1) mmol/L Chloride (96-114) mmol/L Carbon Dioxide (20-32) mmol/L Anion Gap (7-15) mEq/L BUN (7-30) mg/dL Creatinine (0.5-1.5) mg/dL Estimated Creat Clear Estimated GFR ml/min Glucose (60-115) mg/dL Lactate (0.5-1.9) mmol/L Calcium (8.4-10.6) mg/dL Total Bilirubin (0.1-1.5) mg/dL AST (12-35) U/L ALT (4-35) U/L Alkaline Phosphatase (40-150) U/L POC Troponin I High Sensi 17.1 H* (2.9-13.0) pg/mL NT-Pro-B Natriuret Pep (See Note) pg/mL Total Protein (6.0-8.3) g/dL Albumin (3.3-5.0) g/dL TSH (0.270-4.200) uIU/mL Urine Color (Yellow) Urine Appearance (Clear) Urine pH (5.0-8.5) Ur Specific [place] (1.000-1.030) Urine Protein (Negative) Urine Glucose (UA) (Negative) Urine Ketones (Negative) Urine Blood (Negative) Urine Nitrite (Negative) Urine Bilirubin (Negative) Urine Urobilinogen (0.2-1.0) Ur Leukocyte Esterase (Negative) Urine RBC (0-2) Urine WBC (0-5) Ur Squamous Epith Cells (None-Few) Urine Bacteria (None) Ethyl Alcohol (0.01-0.03) % Lab Acknowledgement Test Added Test Added Imaging Data CTA Head and Neck: Attestation: I have reviewed the pertinent imaging results. Radiologist's impression: IMPRESSION: 1. 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 2. Patent rest of the cervical and proximal intracranial vasculature. Chest x-ray: Attestation: I have reviewed the pertinent imaging results. Radiologist's impression: IMPRESSION: 1. Elevation of the left hemidiaphragm with subsegmental bibasilar atelectasis. No lobar airspace consolidation, pleural effusion or pneumothorax. 2. Mild enlargement of the cardiac silhouette, stable. CT scan - head: Attestation: I have reviewed the pertinent imaging results. Radiologist's impression: IMPRESSION: 1. No acute intracranial noncontrast CT findings. 2. Mild brain parenchymal involutional changes. ECG Data Attestation: I personally reviewed and interpreted this ECG as follows: Interpretation: Sinus bradycardia Rate 56 LA interval 152 Normal QRS axis. Minimal voltage criteria for LVH with a tall R-wave in lead A aVL Nonspecific T-wave changes with T-wave inversions in V1-V3. No ST segment elevation or depression. No definitive change compared to 03/30. T-wave inversions in V1 and V2 may be slightly more prominent QT 444, QTC 428 Discharge Plan Discharge Clinical Impression: Acute alteration in mental status, Hypertension, Elevated troponin Patient Disposition: Admitted As Observation Procedures ABG Interpretation ABG Results: 04/26/25 15:20 VBG pH 7.431 H VBG pCO2 47 VBG pO2 31.2 VBG HCO3 31 H
--- NOTE | 2025-04-26 14:58 | CT_ITS ---
Patient: AYDIN CLEMENTE Facility:?[facility] RIS Patient ID:?[id number] Site Patient ID:?[id number]. Site :?1945 Study:?CT-Neck Angio CODE STROKE W/ 95CC ISOVUE 370-04/26/2025 3:38:59 PM Ordering Physician:Jazmine Burgess Final Report: DATE: 04/26/2025 CLINICAL HISTORY: Patient with confusion. TECHNIQUE: Standard helical CT image acquisition through the head and neck was performed after intravenous contrast bolus enhancement. 2D and 3D MIP images for post- processing were performed and interpreted on an independent workstation and 3D images were permanently archived. COMPARISON: CT same day. FINDINGS: The origins of the great vessels from the aortic arch are patent. The origin of the right vertebral artery is patent. 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 The common carotid arteries are patent There is no stenosis at the origin of the right internal carotid artery. There is no stenosis at the origin of the left internal carotid artery. The rest of the cervical segments of the internal carotid arteries are patent up to their intracranial segments. The intracranial segments of the internal carotid arteries are patent. The right vertebral artery is dominant. The cervical segments of the right vertebral artery are patent. The intracranial segments of the right vertebral artery are patent. The middle cerebral arteries are normal without aneurysm or proximal occlusion identified. The anterior cerebral arteries are normal without aneurysm or proximal occlusion identified. The anterior communicating artery is well visualized and appears normal. The basilar artery is normal without aneurysm or occlusion. The posterior cerebral arteries are normal without aneurysm or proximal occlusion. There is normal opacification of major intracranial venous structures. The visualized lung apices are unremarkable The thyroid gland is unremarkable. The soft tissues of the neck are unremarkable. There are degenerative changes in the cervical spine. IMPRESSION: 1. 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 2. Patent rest of the cervical and proximal intracranial vasculature. Please note that all CT scans at this facility use dose modulation, iterative reconstruction, and/or weight-based dosing when appropriate to reduce radiation dose to as low as reasonably achievable. Dictated by Farzana Gill MD @ 04/26/2025 3:56:32 PM Signed by:?Farzana Gill MD @04/26/2025 3:56:32 PM (Electronic Signature)
--- NOTE | 2025-04-26 14:58 | CT_ITS ---
Patient: AYDIN CLEMENTE Facility:?[facility] RIS Patient ID:?[id number] Site Patient ID:?[id number]. Site :?1945 Study:?CT-Head angio 75cc isovue 370-04/26/2025 3:38:28 PM Ordering Physician:Jazmine Burgess Final Report: DATE: 04/26/2025 CLINICAL HISTORY: Patient with confusion. TECHNIQUE: Standard helical CT image acquisition through the head and neck was performed after intravenous contrast bolus enhancement. 2D and 3D MIP images for post- processing were performed and interpreted on an independent workstation and 3D images were permanently archived. COMPARISON: CT same day. FINDINGS: The origins of the great vessels from the aortic arch are patent. The origin of the right vertebral artery is patent. 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 The common carotid arteries are patent There is no stenosis at the origin of the right internal carotid artery. There is no stenosis at the origin of the left internal carotid artery. The rest of the cervical segments of the internal carotid arteries are patent up to their intracranial segments. The intracranial segments of the internal carotid arteries are patent. The right vertebral artery is dominant. The cervical segments of the right vertebral artery are patent. The intracranial segments of the right vertebral artery are patent. The middle cerebral arteries are normal without aneurysm or proximal occlusion identified. The anterior cerebral arteries are normal without aneurysm or proximal occlusion identified. The anterior communicating artery is well visualized and appears normal. The basilar artery is normal without aneurysm or occlusion. The posterior cerebral arteries are normal without aneurysm or proximal occlusion. There is normal opacification of major intracranial venous structures. The visualized lung apices are unremarkable The thyroid gland is unremarkable. The soft tissues of the neck are unremarkable. There are degenerative changes in the cervical spine. IMPRESSION: 1. 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 2. Patent rest of the cervical and proximal intracranial vasculature. Please note that all CT scans at this facility use dose modulation, iterative reconstruction, and/or weight-based dosing when appropriate to reduce radiation dose to as low as reasonably achievable. Dictated by: Farzana Gill MD @ 04/26/2025 15:58:25 Signed by:?Farzana Gill MD @04/26/2025 3:58:25 PM (Electronic Signature)
--- NOTE | 2025-04-26 15:28 | XR_ITS ---
Patient: AYDIN CLEMENTE Facility:?[facility] RIS Patient ID:?[id number] Site Patient ID:?[id number]. Site :?1945 Study:?XRay-Chest 2V-04/26/2025 3:41:08 PM Ordering Physician:Jazmine Burgess Final Report: INDICATION: Hypertension, confusion TECHNIQUE: X-ray chest two views COMPARISON: CT chest 03/30/2025 FINDINGS: Lungs and pleura: There is elevation of the left hemidiaphragm. There is subsegmental bibasilar atelectasis. No lobar airspace consolidation, pleural effusion or pneumothorax. Heart/mediastinum: The cardiac silhouette is mildly enlarged, as before. The mediastinal contours are within normal limits. Osseous structures: There are degenerative changes in the spine. IMPRESSION: 1. Elevation of the left hemidiaphragm with subsegmental bibasilar atelectasis. No lobar airspace consolidation, pleural effusion or pneumothorax. 2. Mild enlargement of the cardiac silhouette, stable. Dictated by Conrad Hogan MD @ 04/26/2025 3:58:30 PM Signed by:?Conrad Hogan MD @04/26/2025 3:58:30 PM (Electronic Signature)
[2025-04-26 15:40] LABS: HCO3 VBG 31 mmol/L (21-28); Lactate* 0.8 mmol/L (0.5-1.9); PCO2 VBG 47 mmHG (40-50); PO2 VBG 31.2 mmHG (25-47); pH VBG 7.431 (7.32-7.43)
[2025-04-26 15:43] LABS: Hematocrit* 35.2 % (33.0-51.0); Hemoglobin* 11.9 gm/dL (12.0-16.0); Immature Granulocytes Abs Auto 0.01 K/uL (0.00-0.30); Immature Granulocytes Pct Auto 0.1 %; Lymphocytes Absolute Auto 1.49 K/uL (0.90-2.90); Mean Corpuscular HGB Conc 34 gm/dL (32-36); Mean Corpuscular Hemoglobin 29 pg (26-34); Mean Corpuscular Volume 85 fL (80-100); RDW Coefficient of Variation % 12.2 % (11.5-15.5); Red Blood Count* 4.14 m/uL (4.00-5.20); White Blood Count* 6.73 K/uL (4.50-11.00)
[2025-04-26 15:49] LABS: Slide Review Reflex No
[2025-04-26 15:58] LABS: INR 0.93 (0.91-1.10); Prothrombin Time 13.3 Seconds
[2025-04-26 15:59] LABS: Albumin* 4.4 g/dL (3.3-5.0); Chloride* 96 mmol/L (96-114); Potassium* 3.5 mmol/L (3.6-5.1); Sodium* 136 mmol/L (135-149)
[2025-04-26 16:01] LABS: Appearance Urine Clear (Clear)
[2025-04-26 16:02] LABS: Alanine Aminotransferase* 21 U/L (4-35); Alkaline Phosphatase* 73 U/L (40-150); Anion Gap 10 mEq/L (7-15); Aspartate Amino Transferase* 33 U/L (12-35); Bilirubin Total* 0.8 mg/dL (0.1-1.5); Blood Urea Nitrogen* 17 mg/dL (7-30); Calcium* 9.5 mg/dL (8.4-10.6); Carbon Dioxide* 30 mmol/L (20-32); Creatinine* 0.6 mg/dL (0.5-1.5); Est. Creatinine Clearance* 46.02; Estimated Glomerular Filt Rate 91 ml/min; Glucose* 99 mg/dL (60-115); Total Protein* 7.5 g/dL (6.0-8.3)
[2025-04-26 16:07] LABS: Ethanol* < 0.01 % (0.01-0.03)
[2025-04-26 16:34] LABS: TSH With Reflex to FT4* 0.787 uIU/mL (0.270-4.200)
[2025-04-26 18:58] LABS: NT Pro B Type NatriureticPept* 381 pg/mL (See Note)
--- NOTE | 2025-04-26 19:57 | PM.IMHP1 ---
Assessment and Plan Assessment and plan (1) Acute alteration in mental status: Problem comment: -supportive care -MR brain in the am -OT to evaluate -consider takotsubo, hypertensive encephalopathy (PRES), ischemic CVA, conversion d/o + anxiety -labs unremarkable, other than troponin Status: Acute (2) Hypertensive encephalopathy: Problem comment: I'd like to keep BP less than 180/90 (managing permissive HTN but keeping PRES on the differential) -prn iv labetalol ordered Status: Acute (3) PRES (posterior reversible encephalopathy syndrome): Problem comment: -BP high today is 253/117. 188/88 on admission. goal will be to get normalized for 24-48 hours. Tonight; keep less than 180/80 - then tighter control based on imaging and echo. -monitor BP and telemetry. trend troponins. -brain MR in the am looking for vasogenic edema Status: Acute (4) Takotsubo syndrome: Problem comment: -possible. trend troponins. check ECHO for wall motion abnormalities. No role for antiplatelet therapy Status: Acute (5) Elevated troponin: Problem comment: -rate of rise/delta is only 15.5%, under 20% so likely flat -monitor with Trop I on the floor Recent echo 04/06/25 Final Impressions: 1. Normal LV size, mildly increased wall thickness, normal global systolic function with an estimated EF of 65 - 70%. 2. Right ventricular cavity size is normal, global systolic RV function is normal. 3. Moderately enlarged left atrium. 4. The aortic valve is calcified and trileaflet, mild stenosis and mild regurgitation. 5. The inferior vena cava is normal sized, respiratory size variation greater than 50%. Comparison Compared to prior exam of 09/01/2023, there has been no significant change. Status: Acute (6) Aortic stenosis: Problem comment: mild-moderate. holosystolic murmur no change by echo in last year monitor Status: Acute (7) Hypertension: Problem comment: -current regimen is losartan 50mg BID and spironolactone 25mg each morning -hypertensive urgency earlier today -monitor with cardiac enzymes and telemetry -we have not completely ruled out possible new ischemic event so some permissive hypertension is appropriate tonight Status: Acute (8) Hyperlipidemia: Status: Acute (9) Glaucoma: Status: Acute (10) GERD (gastroesophageal reflux disease): Status: Acute (11) Hypothyroidism: Status: Acute (12) Lipedema of lower extremity: Status: Acute Hospitalist- H&P: HPI History of Present Illness Date Seen: 04/26/25 Chief complaint: stroke symptoms Narrative: ADMISSION HISTORY AND PHYSICAL - HOSPITALIST Chief Complaint: AMS, Hypertensive urgency HPI: 79-year-old with a history of hypertension, recent extreme stressors presents with hypertensive urgency with acute mental status changes. On the day of admission she had driven herself to a nail appointment and noticed that while she was getting a pedicure she was having trouble keeping her thoughts straight. She did not feel anxious but she thought it was strange that she could not think of her primary care doctor's name, her son's recent diagnosis, some really basic facts the just seem to be not within her reach. She was able to finish the pedicure, pay and went out to her car. She does not notice any physical disability or changes in her gait or strength. However she just did not feel right. So instead of driving home she circled back and checked in to urgent care. There her blood pressure was 230/102, 253/117. No neuro symptoms were found on physical exam but she was asking repetitive questions. Urgent care called EMS and she was brought in to our ER, where she continued to be hypertensive. Blood pressure without intervention started to return to more baseline of 160s to 170s over 90s. Her CT and CTA were read as negative. Her labs are unremarkable. She remained most of the late afternoon and early evening in the ER. She seemed clear somewhat, but the ER doc did mention that she kept repeating herself. No history of stroke. No history of coronary artery disease or diabetes. She does have aortic stenosis, chronic hypertension. she was only given lorazepam in the ED. ER COURSE: IV lorazepam and monitoring, stroke code with CT and CTA CODE STATUS: FULL CODE PCP: Dr. Calvert EMERGENCY CONTACT PLAN: Her [place] son I've updated the PFSH, medications and allergies in the Expanse tabs. INVESTIGATIONS: LABS/MICRO/ECG/IMAGING In the clinic/urgent care, blood pressure reached 253/117, 230/102 241/103. It has slowly been declining all the rest of the day. 188/88. Pulse in the 60s. Respiratory rate 10-12. Pulse ox 96% on room air CBC is unremarkable. PH is 7.4. Bicarb is mildly elevated at 31 Potassium is mildly depressed at 3.5 otherwise her renal function in the rest of her electrolytes and liver enzymes are all unremarkable. Her baseline troponin I is 0.02, however highly sensitive troponin I is 14.8 to 17.1 over 2 hour BMP 381. Thyroid is normal. Head CT 1. No acute intracranial noncontrast CT findings. 2. Mild brain parenchymal involutional changes. Prelim on CTA 1. No evidence of proximal artery occlusion, high grade stenosis, aneurysm, dissection, or vascular malformation. 2. Final report per neurointerventional radiology service. REVIEW OF SYSTEMS: 12-point ROS completed with patient and negative unless otherwise stated in HPI or below. PHYSICAL EXAM: CONSTITUTIONAL: Conversive, good historian. A/O. Knows setting and context. She is clear mentally when I visit with her at 8:30 p.m.. 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 She is calm. Does not seem anxious. GENERAL: Well nourished. No respiratory distress. Speaks in full sentences. VITAL SIGNS: see record. HEENT: Sclerae are anicteric. No petechiae. CARDIAC: rhythm is regular. There is no S3 or rub. Systolic ejection murmur noted best at the upper sternal border noted 2-3/6. Extremities show 1+ edema with symmetrical pulses. NEURO: Speech is fluent. A brief neurologic exam is negative. SKIN: No rashes, petechiae, concerning changes PSYCHIATRIC: Euthymic. ADMIT TO MEDSURG: FLOOR CARE DVT: Lovenox GI: PO intake Time spent: Today I spent 75 minutes seeing the patient, discussing the patient with ER staff, reviewing Expanse and EPIC notes/diagnostics, discussing the care plan with our care time that includes social work, PT/OT, pharmacy, RT, snf and documenting my impressions and plan in the medical record. MEDICAL NECESSITY FOR HOSPITALIZATION Anticipated midnights in the hospital: Admitting diagnosis: Hypertensive urgency with acute mental status changes Risk of morbidity and mortality: high Acuity is characterized as high and reflected in: Troponin elevated, hypertension, advanced age This patient will require hospital services as outlined in the assessment and plan in order to stabilize and be safely discharged to a lower level of care. Because of the risk and acuity as described above, this patient cannot be managed at a lower level of care. LENGTH OF STAY: 2 IP ? Anticipated LOS>2 midnights due to acuity of clinical presentation requiring inpatient level of care [facility] Medical History (Updated 04/26/25 @ 22:01 by Zenia Rolle MD) Aortic stenosis ?I35.0 - Nonrheumatic aortic (valve) stenosis (ICD-10) Hyperlipidemia ?E78.5 - Hyperlipidemia, unspecified (ICD-10) Glaucoma ?H40.9 - Unspecified glaucoma (ICD-10) GERD (gastroesophageal reflux disease) ?K21.9 - Gastro-esophageal reflux disease without esophagitis (ICD-10) Hypothyroidism ?E03.9 - Hypothyroidism, unspecified (ICD-10) Bacterial vaginosis ?N76.0 - Acute vaginitis (ICD-10) ?B96.89 - Other specified bacterial agents as the cause of diseases classified elsewhere (ICD-10) Social History Smoking Status: Never smoker Second hand tobacco smoke exposure: No How often do you have a drink containing alcohol: monthly or less AUDIT-C Alcohol total score: 1 Non-prescribed substance use: denies use Meds Home Medications and Allergies Home Medications ?Medication ?Instructions ?Recorded ?Confirmed ?Type amlodipine 2.5 mg tablet 2.5 mg PO DAILY 01/04/22 03/25/24 History famotidine 20 mg tablet 20 mg PO BID 01/04/22 03/25/24 History latanoprost 0.005 % eye drops 1 drp ophthalmic (eye) DAILY 01/04/22 03/25/24 History levothyroxine 100 mcg capsule 100 mcg PO DAILY 01/04/22 04/26/25 History fanibx-xszhcczg-utllqov 2 cap PO TID 01/04/22 03/25/24 History (pork)36,000-114,000-180k unit capsule,del rel (Creon) losartan 50 mg tablet 50 mg PO BID 01/04/22 04/26/25 History meclizine 25 mg tablet 25 mg PO QID #20 tabs 01/04/22 04/26/25 Rx triamterene 37.5 1 cap PO DAILY 01/04/22 04/26/25 History mg-hydrochlorothiazide 25 mg capsule levothyroxine 88 mcg tablet 88 mcg PO 3XW 01/14/23 03/25/24 History omeprazole 20 mg capsule,delayed 20 mg PO DAILY 01/14/23 04/26/25 History release estradiol 0.01% (0.1 mg/gram) g vaginal 2XW 04/26/25 04/26/25 History vaginal cream ezetimibe 10 mg tablet 10 mg PO DAILY 04/26/25 04/26/25 History fluticasone propionate 50 spray intranasal 04/26/25 04/26/25 History mcg/actuation nasal spray,suspension latanoprostene bunod 0.024 % eye 1 drp ophthalmic (eye) QPM 04/26/25 04/26/25 History drops (Vyzulta) levothyroxine 100 mcg tablet mcg PO 04/26/25 04/26/25 History (Synthroid) potassium chloride 10 mEq 10 meq PO BID 04/26/25 04/26/25 History tablet,extended release(part/cryst) timolol maleate 0.5 % eye drops drp ophthalmic (eye) 04/26/25 04/26/25 History Allergies Allergy/AdvReac Type Severity Reaction Status Date / Time Sulfa (Sulfonamide Allergy Mild Hives Verified 04/26/25 14:03 Antibiotics) Exam Const: Vital Signs, click to edit/add: Vital Signs - 24 hr 04/26/25 14:56 04/26/25 15:00 04/26/25 15:01 Temperature 98 F Pulse Rate 61 60 Pulse Rate [Pulse Oximeter] 60 Respiratory Rate 18 18 Blood Pressure 206/87 H Blood Pressure [Le ft Upper Arm] 206/87 H Pulse Oximetry 97 96 96 Oxygen Delivery Me thod Room Air 04/26/25 15:15 04/26/25 15:17 04/26/25 15:18 Temperature Pulse Rate 62 79 64 Pulse Rate [Pulse Oximeter] Respiratory Rate 16 Blood Pressure 215/106 H Blood Pressure [Le ft Upper Arm] Pulse Oximetry 97 97 96 Oxygen Delivery Me thod 04/26/25 15:49 04/26/25 15:53 04/26/25 16:00 Temperature Pulse Rate 61 57 L 61 Pulse Rate [Pulse Oximeter] Respiratory Rate 16 Blood Pressure 199/83 H Blood Pressure [Le ft Upper Arm] Pulse Oximetry 96 97 97 Oxygen Delivery Me thod 04/26/25 16:15 04/26/25 16:17 04/26/25 16:30 Temperature Pulse Rate 56 L 59 L 57 L Pulse Rate [Pulse Oximeter] Respiratory Rate 13 18 Blood Pressure 184/86 H Blood Pressure [Le ft Upper Arm] Pulse Oximetry 94 97 93 Oxygen Delivery Me thod 04/26/25 16:32 04/26/25 16:33 04/26/25 16:45 Temperature Pulse Rate 56 L 59 L 55 L Pulse Rate [Pulse Oximeter] Respiratory Rate 18 14 Blood Pressure 186/84 H Blood Pressure [Le ft Upper Arm] Pulse Oximetry 93 92 93 Oxygen Delivery Me thod 04/26/25 16:47 04/26/25 17:00 04/26/25 17:01 Temperature Pulse Rate 55 L 56 L 57 L Pulse Rate [Pulse Oximeter] Respiratory Rate 11 L Blood Pressure 162/76 H 167/78 H Blood Pressure [Le ft Upper Arm] Pulse Oximetry 94 93 92 Oxygen Delivery Me thod 04/26/25 17:15 04/26/25 17:17 04/26/25 17:32 Temperature Pulse Rate 57 L 57 L Pulse Rate [Pulse Oximeter] Respiratory Rate 13 12 Blood Pressure 156/67 H 167/91 H Blood Pressure [Le ft Upper Arm] Pulse Oximetry 93 93 Oxygen Delivery Me thod 04/26/25 17:33 04/26/25 17:45 04/26/25 17:47 Temperature Pulse Rate 66 Pulse Rate [Pulse Oximeter] Respiratory Rate 12 12 Blood Pressure 158/79 H Blood Pressure [Le ft Upper Arm] Pulse Oximetry 97 Oxygen Delivery Me thod 04/26/25 18:00 04/26/25 18:02 04/26/25 18:15 Temperature Pulse Rate 64 64 66 Pulse Rate [Pulse Oximeter] Respiratory Rate Blood Pressure 168/78 H Blood Pressure [Le ft Upper Arm] Pulse Oximetry 96 98 94 Oxygen Delivery Me thod 04/26/25 18:17 04/26/25 18:30 04/26/25 18:32 Temperature Pulse Rate 64 64 70 Pulse Rate [Pulse Oximeter] Respiratory Rate 12 15 Blood Pressure 176/81 H 180/80 H Blood Pressure [Le ft Upper Arm] Pulse Oximetry 95 93 93 Oxygen Delivery Me thod 04/26/25 18:45 04/26/25 18:47 04/26/25 18:48 Temperature Pulse Rate 62 64 63 Pulse Rate [Pulse Oximeter] Respiratory Rate 14 Blood Pressure 173/76 H Blood Pressure [Le ft Upper Arm] Pulse Oximetry 95 95 95 Oxygen Delivery Me thod 04/26/25 19:00 04/26/25 19:01 04/26/25 19:15 Temperature Pulse Rate 62 65 63 Pulse Rate [Pulse Oximeter] Respiratory Rate 9 L 8 L Blood Pressure 174/80 H Blood Pressure [Le ft Upper Arm] Pulse Oximetry 93 94 95 Oxygen Delivery Me thod 04/26/25 19:17 04/26/25 19:30 04/26/25 19:32 Temperature Pulse Rate 73 66 67 Pulse Rate [Pulse Oximeter] Respiratory Rate 10 L 12 Blood Pressure 182/86 H 188/88 H Blood Pressure [Le ft Upper Arm] Pulse Oximetry 94 96 95 Oxygen Delivery Me od 04/26/25 19:45 Temperature Pulse Rate Pulse Rate [Pulse Oximeter] Respiratory Rate 17 Blood Pressure Blood Pressure [Le ft Upper Arm] Pulse Oximetry Oxygen Delivery Me od Hospitalist - H&P: Result Labs Labs: Short CBC 04/26/25 Range/Units 15:20 WBC 6.73 (4.50-11.00) K/uL Hgb 11.9 L (12.0-16.0) gm/dL Hct 35.2 (33.0-51.0) % Plt Count 273 (140-440) K/uL BMP 04/26/25 15:20 Sodium 136 Potassium 3.5 L Chloride 96 Carbon Dioxide 30 BUN 17 Creatinine 0.6 Glucose 99 Calcium 9.5 Liver Function 04/26/25 Range/Units 15:20 Total Bilirubin 0.8 (0.1-1.5) mg/dL AST 33 (12-35) U/L ALT 21 (4-35) U/L Alkaline Phosphatase 73 (40-150) U/L Albumin 4.4 (3.3-5.0) g/dL Urine 04/26/25 Range/Units 15:45 Urine Color Yellow (Yellow) Urine Appearance Clear (Clear) Urine pH 7.5 (5.0-8.5) Ur Specific [place] 1.015 (1.000-1.030) Urine Protein Negative (Negative) Urine Glucose (UA) Negative (Negative)
[2025-04-26] MEDS: LOSARTAN POTASSIUM 50 MG TABLET PO (22:57)
[2025-04-26] MEDS: FAMOTIDINE 20 MG TABLET PO (22:58)
[2025-04-26] MEDS: ENOXAPARIN 40 MG/0.4 ML INJ SUBCUT (22:58)
[2025-04-26] MEDS: SODIUM CHLORIDE 0.9 % (FLUSH) 10 ML SYRINGE 5 ML IVF (22:58)
[2025-04-26] MEDS: ACETAMINOPHEN 325 MG TABLET 1000 MG PO (23:04)
[2025-04-27] VITALS (12 sets, daily range): BP systolic 127–186; BP diastolic 68–83; PULSE 59–86; RESP 16–18; TEMP 36.4–36.7; O2SAT 92–95; BMI 22.8
[2025-04-27 06:14] LABS: Hematocrit* 31.6 % (33.0-51.0); Hemoglobin* 10.7 gm/dL (12.0-16.0); Mean Corpuscular HGB Conc 34 gm/dL (32-36); Mean Corpuscular Hemoglobin 29 pg (26-34); Mean Corpuscular Volume 85 fL (80-100); Red Blood Count* 3.74 m/uL (4.00-5.20); White Blood Count* 4.67 K/uL (4.50-11.00)
[2025-04-27 06:16] LABS: Slide Review Reflex No
[2025-04-27 06:24] LABS: Chloride* 96 mmol/L (96-114); Sodium* 135 mmol/L (135-149)
[2025-04-27 06:25] LABS: Potassium* 3.4 mmol/L (3.6-5.1)
[2025-04-27 06:27] LABS: Blood Urea Nitrogen* 17 mg/dL (7-30); Creatinine* 0.7 mg/dL (0.5-1.5); Est. Creatinine Clearance* 46.02; Estimated Glomerular Filt Rate 88 ml/min
[2025-04-27 06:28] LABS: Anion Gap 10 mEq/L (7-15); Calcium* 8.9 mg/dL (8.4-10.6); Carbon Dioxide* 29 mmol/L (20-32); Glucose* 93 mg/dL (60-115)
--- NOTE | 2025-04-27 07:00 | CRLHL7_ITS ---
For Patients: As a result of the Century Cures Act, medical imaging exams and procedure reports are released immediately into your electronic medical record. You may view this report before your referring provider. If you have questions, please contact your health care provider. Indication: Hypertensive encephalopathy. Technique: Multiplanar multisequence noncontrast MR images of the brain. Comparison: CT brain 04/26/2025. Findings: Mild to moderate diffuse cerebral volume loss. No mass effect or midline shift. Few punctate FLAIR hyperintensities in the supratentorial white matter, typical for minimal chronic microvascular ischemic changes. No intracranial hemorrhage or pathologic extra-axial fluid collection. No diffusion restriction to suggest acute infarction. The major arterial flow voids of the skull base are preserved. Thinning of the ocular lenses. Small left maxillary sinus retention cyst. Mastoid air cells are clear. Impression: 1. No acute intracranial abnormality. 2. Ngim-jy-cotlgceg diffuse cerebral volume loss and minimal chronic microvascular ischemic changes. Dictated by Faizan Sims MD @ 04/27/2025 11:02:23 AM (Electronically Signed)
[2025-04-27] MEDS: LEVOTHYROXINE 100 MCG TABLET PO (07:09)
[2025-04-27] MEDS: OMEPRAZOLE 20 MG CAPSULE DR PO (07:09)
[2025-04-27] MEDS: LABETALOL HCL 5 MG/ML inj 10 MG IVP ×2 (07:15→08:50)
[2025-04-27] MEDS: SPIRONOLACTONE 25 MG TABLET PO (08:50)
[2025-04-27] MEDS: LOSARTAN POTASSIUM 50 MG TABLET PO (08:51)
[2025-04-27] MEDS: EZETIMIBE 10 MG TABLET PO (08:51)
[2025-04-27] MEDS: POTASSIUM CHLORIDE 10 MEQ CAPSULE ER PO (08:51)
[2025-04-27] MEDS: SODIUM CHLORIDE 0.9 % (FLUSH) 10 ML SYRINGE 5 ML IVF (08:57)
[2025-04-27] MEDS: timoloL maleate 0.5 % 1 DROP EYE-BOTH (10:51)
--- NOTE | 2025-04-27 13:29 | PM.IMPN1 ---
Assessment and Plan Assessment and plan (1) Acute alteration in mental status: Problem comment: -supportive care -MR brain: No acute intracranial abnormalities noted with mild to moderate diffuse cerebral volume loss and minimal chronic microvascular ischemic changes noted. -OT to evaluate -consider takotsubo, hypertensive encephalopathy (PRES), ischemic CVA, conversion d/o + anxiety -labs unremarkable, other than troponin which was initially mildly elevated on the high sensitivity trop I assay Status: Acute (2) PRES (posterior reversible encephalopathy syndrome): Problem comment: -BP high today is 253/117. 188/88 on admission. goal will be to get normalized for 24-48 hours. Tonight; keep less than 180/80 - then tighter control based on imaging and echo. -monitor BP and telemetry. trend troponins. -brain MR in the am looking for vasogenic edema: No vasogenic edema noted Status: Acute (3) Hypertensive encephalopathy: Problem comment: I'd like to keep BP less than 180/90 (managing permissive HTN but keeping PRES on the differential) -prn iv labetalol ordered -encephalopathy improved over time Status: Acute (4) Takotsubo syndrome: Problem comment: -possible. trend troponins. check ECHO for wall motion abnormalities. No role for antiplatelet therapy Status: Acute (5) Elevated troponin: Problem comment: -rate of rise/delta is only 15.5%, under 20% so likely flat -monitor with Trop I on the floor Recent echo 04/06/25 Final Impressions: 1. Normal LV size, mildly increased wall thickness, normal global systolic function with an estimated EF of 65 - 70%. 2. Right ventricular cavity size is normal, global systolic RV function is normal. 3. Moderately enlarged left atrium. 4. The aortic valve is calcified and trileaflet, mild stenosis and mild regurgitation. 5. The inferior vena cava is normal sized, respiratory size variation greater than 50%. Comparison Compared to prior exam of 09/01/2023, there has been no significant change. Await echo on 04/27/2025 to assess for possibility of acute takotsubo cardiomyopathy Status: Acute (6) Aortic stenosis: Problem comment: mild-moderate. holosystolic murmur no change by echo in last year monitor Status: Acute (7) Hypertension: Problem comment: -current regimen is losartan 50mg BID and spironolactone 25mg each morning -hypertensive urgency earlier today -monitor with cardiac enzymes and telemetry -we have not completely ruled out possible new ischemic event so some permissive hypertension is appropriate tonight Status: Acute (8) Hypothyroidism: Status: Acute (9) Hyperlipidemia: Status: Acute (10) Glaucoma: Status: Acute (11) Lipedema of lower extremity: Status: Acute (12) GERD (gastroesophageal reflux disease): Status: Acute Plan 1. I reviewed my impression, plans, recommendations with patient and her son 2. Answered their questions to their satisfaction 3. They are agreeable with above stated plans and recommendations Total Time Spent Total Time Spent: 45 minutes Subjective Date Seen: 04/27/25 Interval history: Admission history of present illness: ?79-year-old with a history of hypertension, recent extreme stressors presents with hypertensive urgency with acute mental status changes. On the day of admission she had driven herself to a nail appointment and noticed that while she was getting a pedicure she was having trouble keeping her thoughts straight. She did not feel anxious but she thought it was strange that she could not think of her primary care doctor's name, her son's recent diagnosis, some really basic facts the just seem to be not within her reach. She was able to finish the pedicure, pay and went out to her car. She does not notice any physical disability or changes in her gait or strength. However she just did not feel right. So instead of driving home she circled back and checked in to urgent care. There her blood pressure was 230/102, 253/117. No neuro symptoms were found on physical exam but she was asking repetitive questions. Urgent care called EMS and she was brought in to our ER, where she continued to be hypertensive. Blood pressure without intervention started to return to more baseline of 160s to 170s over 90s. Her CT and CTA were read as negative. Her labs are unremarkable. She remained most of the late afternoon and early evening in the ER. She seemed clear somewhat, but the ER doc did mention that she kept repeating herself. No history of stroke. No history of coronary artery disease or diabetes. She does have aortic stenosis, chronic hypertension. she was only given lorazepam in the ED. ?ER COURSE: IV lorazepam and monitoring, stroke code with CT and CTA? 04/27/2025: For the most part patient is back to baseline. Has little recall of some of yesterday's events. Specifically does not recall speaking with her sister yesterday. In fact she did call and speak with her sister yesterday. Does not recall some of the other details await did or did not happen yesterday as well. Again reiterates multiple intense life stresses over the last 3 weeks. Historically has not had blood pressures this high in the past. Has had elevated blood pressures in the past, with systolic values in the 160-170 range. No residual focal motor neurologic deficits. Exam Narrative: Exam Narrative: Assist patient in her hospital room. Alert and oriented x4. Amnesia of some yesterday's events. No focal motor neurologic deficits. No tremor, asterixis, or ataxia. Independent with transfer, station, gait. Lungs clear to auscultation. Heart tones with regular rhythm. Abdomen benign. Bilateral lower extremity edema on top of underlying lipedemia. Const: Vital Signs, click to edit/add: Vital Signs - 24 hr 04/26/25 14:56 04/26/25 15:00 04/26/25 15:01 Temperature 36.6 C Pulse Rate 61 60 Pulse Rate [Left P ulse Oximeter] Pulse Rate [Pulse Oximeter] 60 Respiratory Rate 18 18 Blood Pressure 206/87 H Blood Pressure [Le ft Arm] Blood Pressure [Le ft Upper Arm] 206/87 H Pulse Oximetry 97 96 96 Oxygen Delivery Me od Room Air 04/26/25 15:15 04/26/25 15:17 04/26/25 15:18 Temperature Pulse Rate 62 79 64 Pulse Rate [Left P ulse Oximeter] Pulse Rate [Pulse Oximeter] Respiratory Rate 16 Blood Pressure 215/106 H Blood Pressure [Le ft Arm] Blood Pressure [Le ft Upper Arm] Pulse Oximetry 97 97 96 Oxygen Delivery Me thod 04/26/25 15:49 04/26/25 15:53 04/26/25 16:00 Temperature Pulse Rate 61 57 L 61 Pulse Rate [Left P ulse Oximeter] Pulse Rate [Pulse Oximeter] Respiratory Rate 16 Blood Pressure 199/83 H Blood Pressure [Le ft Arm] Blood Pressure [Le ft Upper Arm] Pulse Oximetry 96 97 97 Oxygen Delivery In thod 04/26/25 16:15 04/26/25 16:17 04/26/25 16:30 Temperature Pulse Rate 56 L 59 L 57 L Pulse Rate [Left P ulse Oximeter] Pulse Rate [Pulse Oximeter] Respiratory Rate 13 18 Blood Pressure 184/86 H Blood Pressure [Le ft Arm] Blood Pressure [Le ft Upper Arm] Pulse Oximetry 94 97 93 Oxygen Delivery Me thod 04/26/25 16:32 04/26/25 16:33 04/26/25 16:45 Temperature Pulse Rate 56 L 59 L 55 L Pulse Rate [Left P ulse Oximeter] Pulse Rate [Pulse Oximeter] Respiratory Rate 18 14 Blood Pressure 186/84 H Blood Pressure [Le ft Arm] Blood Pressure [Le ft Upper Arm] Pulse Oximetry 93 92 93 Oxygen Delivery Me thod 04/26/25 16:47 04/26/25 17:00 04/26/25 17:01 Temperature Pulse Rate 55 L 56 L 57 L Pulse Rate [Left P ulse Oximeter] Pulse Rate [Pulse Oximeter] Respiratory Rate 11 L Blood Pressure 162/76 H 167/78 H Blood Pressure [Le ft Arm] Blood Pressure [Le ft Upper Arm] Pulse Oximetry 94 93 92 Oxygen Delivery Me thod 04/26/25 17:15 04/26/25 17:17 04/26/25 17:32 Temperature Pulse Rate 57 L 57 L Pulse Rate [Left P ulse Oximeter] Pulse Rate [Pulse Oximeter] Respiratory Rate 13 12 Blood Pressure 156/67 H 167/91 H Blood Pressure [Le ft Arm] Blood Pressure [Le ft Upper Arm] Pulse Oximetry 93 93 Oxygen Delivery Me thod 04/26/25 17:33 04/26/25 17:45 04/26/25 17:47 Temperature Pulse Rate 66 Pulse Rate [Left P ulse Oximeter] Pulse Rate [Pulse Oximeter] Respiratory Rate 12 12 Blood Pressure 158/79 H Blood Pressure [Le ft Arm] Blood Pressure [Le ft Upper Arm] Pulse Oximetry 97 Oxygen Delivery Me thod 04/26/25 18:00 04/26/25 18:02 04/26/25 18:15 Temperature Pulse Rate 64 64 66 Pulse Rate [Left P ulse Oximeter] Pulse Rate [Pulse Oximeter] Respiratory Rate Blood Pressure 168/78 H Blood Pressure [Le ft Arm] Blood Pressure [Le ft Upper Arm] Pulse Oximetry 96 98 94 Oxygen Delivery Me thod 04/26/25 18:17 04/26/25 18:30 04/26/25 18:32 Temperature Pulse Rate 64 64 70 Pulse Rate [Left P ulse Oximeter] Pulse Rate [Pulse Oximeter] Respiratory Rate 12 15 Blood Pressure 176/81 H 180/80 H Blood Pressure [Le ft Arm] Blood Pressure [Le ft Upper Arm] Pulse Oximetry 95 93 93 Oxygen Delivery Me thod 04/26/25 18:45 04/26/25 18:47 04/26/25 18:48 Temperature Pulse Rate 62 64 63 Pulse Rate [Left P ulse Oximeter] Pulse Rate [Pulse Oximeter] Respiratory Rate 14 Blood Pressure 173/76 H Blood Pressure [Le ft Arm] Blood Pressure [Le ft Upper Arm] Pulse Oximetry 95 95 95 Oxygen Delivery Me thod 04/26/25 19:00 04/26/25 19:01 04/26/25 19:15 Temperature Pulse Rate 62 65 63 Pulse Rate [Left P ulse Oximeter] Pulse Rate [Pulse Oximeter] Respiratory Rate 9 L 8 L Blood Pressure 174/80 H Blood Pressure [Le ft Arm] Blood Pressure [Le ft Upper Arm] Pulse Oximetry 93 94 95 Oxygen Delivery Me thod 04/26/25 19:17 04/26/25 19:30 04/26/25 19:32 Temperature Pulse Rate 73 66 67 Pulse Rate [Left P ulse Oximeter] Pulse Rate [Pulse Oximeter] Respiratory Rate 10 L 12 Blood Pressure 182/86 H 188/88 H Blood Pressure [Le ft Arm] Blood Pressure [Le ft Upper Arm] Pulse Oximetry 94 96 95 Oxygen Delivery Me thod 04/26/25 19:45 04/26/25 19:55 04/26/25 19:55 Temperature 36.5 C Pulse Rate Pulse Rate [Left P ulse Oximeter] 65 Pulse Rate [Pulse Oximeter] Respiratory Rate 17 14 Blood Pressure Blood Pressure [Le ft Arm] 194/90 H Blood Pressure [Le ft Upper Arm] Pulse Oximetry 96 Oxygen Delivery Me thod Room Air Room Air 04/26/25 20:10 04/26/25 20:10 04/26/25 21:35 Temperature Pulse Rate 61 Pulse Rate [Left P ulse Oximeter] 63 62 Pulse Rate [Pulse Oximeter] Respiratory Rate 16 16 Blood Pressure Blood Pressure [Le ft Arm] 179/81 H 179/81 H Blood Pressure [Le ft Upper Arm] Pulse Oximetry 94 95 Oxygen Delivery Me thod Room Air Room Air 04/26/25 22:13 04/26/25 23:08 04/26/25 23:11 Temperature Pulse Rate 64 Pulse Rate [Left P ulse Oximeter] 63 62 Pulse Rate [Pulse Oximeter] Respiratory Rate 15 Blood Pressure Blood Pressure [Le ft Arm] 189/87 H 184/81 H Blood Pressure [Le ft Upper Arm] Pulse Oximetry 95 Oxygen Delivery In thod Room Air 04/26/25 23:58 04/26/25 23:58 04/27/25 00:05 Temperature 36.8 C Pulse Rate Pulse Rate [Left P ulse Oximeter] 68 72 Pulse Rate [Pulse Oximeter] Respiratory Rate 14 Blood Pressure Blood Pressure [Le ft Arm] 144/66 H 141/69 H Blood Pressure [Le ft Upper Arm] Pulse Oximetry 92 Oxygen Delivery In thod Room Air 04/27/25 01:01 04/27/25 03:01 04/27/25 03:05 Temperature 36.7 C Pulse Rate Pulse Rate [Left P ulse Oximeter] 72 68 Pulse Rate [Pulse Oximeter] Respiratory Rate 18 Blood Pressure Blood Pressure [Le ft Arm] 127/69 136/68 Blood Pressure [Le ft Upper Arm] Pulse Oximetry 93 92 Oxygen Delivery In thod Room Air Room Air 04/27/25 07:00 04/27/25 07:35 04/27/25 07:49 Temperature 36.6 C Pulse Rate 59 L Pulse Rate [Left P ulse Oximeter] 60 Pulse Rate [Pulse Oximeter] Respiratory Rate 18 18 Blood Pressure Blood Pressure [Le ft Arm] 168/78 H Blood Pressure [Le ft Upper Arm] Pulse Oximetry 93 Oxygen Delivery In thod Room Air 04/27/25 08:34 04/27/25 09:38 04/27/25 11:00 Temperature 36.4 C L Pulse Rate Pulse Rate [Left P ulse Oximeter] 72 86 Pulse Rate [Pulse Oximeter] Respiratory Rate 16 Blood Pressure Blood Pressure [Le ft Arm] 186/83 H 150/70 H 169/73 H Blood Pressure [Le ft Upper Arm] Pulse Oximetry 95 Oxygen Delivery In thod Room Air Labs Labs: Laboratory Results - last 24 hr 04/26/25 04/26/25 04/26/25 14:58 15:20 15:45 WBC 6.73 RBC 4.14 Hgb 11.9 L Hct 35.2 MCV 85 MCH 29 MCHC 34 RDW Coeff of Johanna 12.2 Plt Count 273 Neut % (Auto) 65.7 Lymph % (Auto) 22.1 Fergus % (Auto) 10.1 Eos % (Auto) 1.6 Baso % (Auto) 0.4 Neut # (Auto) 4.41 Lymph # (Auto) 1.49 Fergus # (Auto) 0.70 Eos # (Auto) 0.11 Baso # (Auto) 0.03 Abs Immat Gran (auto) 0.01 Imm/Tot Granulo (auto) 0.1 INR 0.93 VBG pH 7.431 H VBG pCO2 47 VBG pO2 31.2 VBG HCO3 31 H Sodium 136 Potassium 3.5 L Chloride 96 Carbon Dioxide 30 Anion Gap 10 BUN 17 Creatinine 0.6 Estimated Creat Clear 46.02 Estimated GFR 91 Glucose 99 Lactate 0.8 Calcium 9.5 Magnesium Total Bilirubin 0.8 AST 33 ALT 21 Alkaline Phosphatase 73 Troponin I 0.02 POC Troponin I High Sensi 14.8 H* NT-Pro-B Natriuret Pep 381 H Total Protein 7.5 Albumin 4.4 TSH 0.787 Urine Color Yellow Urine Appearance Clear Urine pH 7.5 Ur Specific [place] 1.015 Urine Protein Negative Urine Glucose (UA) Negative Urine Ketones Negative Urine Blood Trace-intact A Urine Nitrite Negative Urine Bilirubin Negative Urine Urobilinogen 0.2 Ur Leukocyte Esterase Negative Urine RBC 0-2 Urine WBC 0-2 Ur Squamous Epith Cells None Urine Bacteria None Ethyl Alcohol < 0.01 Lab Acknowledgement 04/26/25 04/26/25 04/26/25 16:55 18:21 18:40 WBC RBC Hgb Hct MCV MCH MCHC RDW Coeff of Johanna Plt Count Neut % (Auto) Lymph % (Auto) Fergus % (Auto) Eos % (Auto) Baso % (Auto) Neut # (Auto) Lymph # (Auto) Fergus # (Auto) Eos # (Auto) Baso # (Auto) Abs Immat Gran (auto) Imm/Tot Granulo (auto) INR VBG pH VBG pCO2 VBG pO2 VBG HCO3 Sodium Potassium Chloride Carbon Dioxide Anion Gap BUN Creatinine Estimated Creat Clear Estimated GFR Glucose Lactate Calcium Magnesium Total Bilirubin AST ALT Alkaline Phosphatase Troponin I POC Troponin I High Sensi 17.1 H* NT-Pro-B Natriuret Pep Total Protein Albumin TSH Urine Color Urine Appearance Urine pH Ur Specific [place] Urine Protein Urine Glucose (UA) Urine Ketones Urine Blood Urine Nitrite Urine Bilirubin Urine Urobilinogen Ur Leukocyte Esterase Urine RBC Urine WBC Ur Squamous Epith Cells Urine Bacteria Ethyl Alcohol Lab Acknowledgement Test Added Test Added 04/26/25 04/27/25 22:09 05:50 WBC 4.67 RBC 3.74 L Hgb 10.7 L Hct 31.6 L MCV 85 MCH 29 MCHC 34 RDW Coeff of Johanna Plt Count 267 Neut % (Auto) Lymph % (Auto) Fergus % (Auto) Eos % (Auto) Baso % (Auto) Neut # (Auto) Lymph # (Auto) Fergus # (Auto) Eos # (Auto) Baso # (Auto) Abs Immat Gran (auto) Imm/Tot Granulo (auto) INR VBG pH VBG pCO2 VBG pO2 VBG HCO3 Sodium 135 Potassium 3.4 L Chloride 96 Carbon Dioxide 29 Anion Gap 10 BUN 17 Creatinine 0.7 Estimated Creat Clear 46.02 Estimated GFR 88 Glucose 93 Lactate Calcium 8.9 Magnesium 1.5 Total Bilirubin AST ALT Alkaline Phosphatase Troponin I 0.01 0.02 POC Troponin I High Sensi NT-Pro-B Natriuret Pep Total Protein Albumin TSH Urine Color Urine Appearance Urine pH Ur Specific [place] Urine Protein Urine Glucose (UA) Urine Ketones Urine Blood Urine Nitrite Urine Bilirubin Urine Urobilinogen Ur Leukocyte Esterase Urine RBC Urine WBC Ur Squamous Epith Cells Urine Bacteria Ethyl Alcohol Lab Acknowledgement Imaging MR Brain: Attestation: I have reviewed the pertinent imaging results. Radiologist's impression: 1. No acute intracranial abnormality. 2. [id number] diffuse cerebral volume loss and minimal chronic microvascular ischemic changes. ECG Prior ECG tracings: available for review Interpretation: Normal sinus rhythm without infarct or ischemic changes. No dysrhythmia.
--- NOTE | 2025-04-27 17:24 | PC.NURSE ---
Pt a/o x4, pleasant and cooperative with cares. Pt is a standby assist and on a reg diet. No pain or nausea reported during shift. IV removed, cath tip intact. Pt given d/c education both written and verbal. All questions and concern answered by pattern chart writer. pt left facility via wheelchair accompanied by friend at 17:03.
--- NOTE | 2025-04-28 15:37 | P.DS_ITS ---
DS: Providers Provider Date Seen: 04/27/25 Date of admission: 04/26/25 20:10 Primary care physician: Jone Calvert MD Admitting Clinician: Zenia Rolle MD Consults: 04/26/25 20:10 Consult to Occupational Therapy [CONS] Routine Comment: Reason(s) for OT Consult:: Evaluate and Treat Any Restrictions?:: No Restrictions Consult to Physical Therapy [CONS] Routine Comment: Reason(s) for PT Consult:: Evaluate and Treat Any Restrictions?:: No Restrictions Consult to Channel Program Manager [CONS] Routine Comment: Reason for Consult:: Social Service Consult Attending Physician on discharge: Leonel Gimenez MD Date of Discharge: 04/27/25 DS: Diagnosis Discharge Diagnosis (1) Acute alteration in mental status: Status: Acute Problem details: -supportive care -MR brain: No acute intracranial abnormalities noted with mild to moderate diffuse cerebral volume loss and minimal chronic microvascular ischemic changes noted. -OT to evaluate -considered takotsubo, posterior reversible encephalopathy syndrome, ischemic CVA, conversion d/o + anxiety -labs unremarkable, other than troponin which was initially mildly elevated on the high sensitivity trop I assay (2) Hypertensive urgency: Status: Acute (3) Hypertensive encephalopathy: Status: Acute Problem details: -prn iv labetalol ordered -encephalopathy improved over time (4) Other social stressor: Status: Acute (5) Grief reaction: Status: Acute (6) Dependent edema: Status: Acute Problem details: - Recommend outpatient lymphedema assessment and treatment, referral made DS: Summary Hospital Course Hospital Course: Admission history of present illness: ?79-year-old with a history of hypertension, recent extreme stressors presents with hypertensive urgency with acute mental status changes. On the day of admission she had driven herself to a nail appointment and noticed that while she was getting a pedicure she was having trouble keeping her thoughts straight. She did not feel anxious but she thought it was strange that she could not think of her primary care doctor's name, her son's recent diagnosis, some really basic facts the just seem to be not within her reach. She was able to finish the pedicure, pay and went out to her car. She does not notice any physical disability or changes in her gait or strength. However she just did not feel right. So instead of driving home she circled back and checked in to urgent care. There her blood pressure was 230/102, 253/117. No neuro symptoms were found on physical exam but she was asking repetitive questions. Urgent care called EMS and she was brought in to our ER, where she continued to be hypertensive. Blood pressure without intervention started to return to more baseline of 160s to 170s over 90s. Her CT and CTA were read as negative. Her labs are unremarkable. She remained most of the late afternoon and early evening in the ER. She seemed clear somewhat, but the ER doc did mention that she kept repeating herself. No history of stroke. No history of coronary artery disease or diabetes. She does have aortic stenosis, chronic hypertension . she was only given lorazepam in the ED. ?ER COURSE: IV lorazepam and monitoring, stroke code with CT and CTA? 04/27/2025: For the most part patient is back to baseline. Has little recall of some of yesterday's events. Specifically does not recall speaking with her sister yesterday. In fact she did call and speak with her sister yesterday. Does not recall some of the other details await did or did not happen yesterday as well. Again reiterates multiple intense life stressors over the last 3 weeks. Historically has not had blood pressures this high in the past. Has had elevated blood pressures in the past, with systolic values in the 160-170 range. No residual focal motor neurologic deficits. Presumably the episode of acute altered mental status was due to an episode of hypertensive encephalopathy. No evidence of posterior reversible encephalopathy syndrome on MRI scan of the brain. Preliminary report of transthoracic echocardiogram demonstrated no apical ballooning to suggest a Takotsubo syndrome. She has agreed to work with her primary day care worker in an effort to continue to manage her blood pressure is optimally. She has agreed to work with her primary day care worker and others in regard to her acute life stressors. Status at Discharge Functional status at discharge: independent ambulation Overall status at discharge: patient is progressing back to baseline Time Spent with Patient Time attestation: Total time spent providing and/or coordinating discharge services: Time spent: Greater than 30 minutes Exam Narrative: Exam Narrative: I assess the patient in her hospital room. Amnesia of some yesterday's events. Otherwise, alert and oriented to self, place, time, and situation. Articulate, cooperative, thoughtful, insightful. Still anxious about life events and stressors plus yesterday's event that brought her to the emergency department. No focal motor neurologic deficits. No tremor, asterixis, or ataxia. Independent with transfer, station, gait. Lungs clear to auscultation. Heart tones with regular rhythm. Abdomen benign. Bilateral lower extremity edema on top of underlying lipedemia. Const: Vital Signs, click to edit/add: Vital Signs - 24 hr 04/27/25 15:40 04/27/25 15:42 Pulse Rate 66 Pulse Rate [Left P ulse Oximeter] 72 Blood Pressure [Le ft Arm] 166/68 H DS: Data Imaging CT scan - head: Radiologist's impression: IMPRESSION: 1. No acute intracranial noncontrast CT findings. 2. Mild brain parenchymal involutional changes. CT angiogram of the head and neck: Radiologist's impression: Reportedly no large vessel occlusive disease of significance. MR Brain: Radiologist's impression: Impression: 1. No acute intracranial abnormality. 2. [id number] diffuse cerebral volume loss and minimal chronic microvascular ischemic changes. Discharge Plan Discharge Disposition: Home, Self-Care Date of Admission: 04/26/25 20:10 Attending Provider on Discharge: Leonel Gimenez Primary Care Provider: Jone Calvert Condition: Improved Anticipated Discharge Date/Time: 04/27/25 17:00 Discharge Medications: New amlodipine 2.5 mg tablet 2.5 mg PO DAILY Qty: 30 2RF spironolactone 50 mg tablet 50 mg PO DAILY Qty: 30 2RF Continued levothyroxine [Synthroid] 100 mcg tablet 100 mcg PO [facility] Rx Instructions: NEIL ROGER THUR, GO estradiol 0.01 % (0.1 mg/gram) cream 1 g vaginal 3XW timolol maleate 0.5 % drops 1 drp ophthalmic (eye) QAM ezetimibe 10 mg tablet 10 mg PO DAILY Vyzulta 0.024 % drops 1 drp ophthalmic (eye) HS losartan 50 mg tablet 50 mg PO BID famotidine 20 mg tablet 20 mg PO BID PRN Creon 36,000-114,000- 180,000 unit capsule,delayed release(DR/EC) 2 cap PO DAILY levothyroxine 88 mcg tablet 88 mcg PO MOWE Rx Instructions: MON, WED, WED omeprazole 20 mg capsule,delayed release(DR/EC) 40 mg PO DAILY Lactobacillus acidophilus [Probacap] 10 billion cell capsule 10,000 mmu cells PO DAILY ferrous sulfate 325 mg (65 mg iron) tablet 325 mg PO DAILY cranberry 450 mg tablet 450 mg PO DAILY Rx Instructions: administer with a meal cholecalciferol (vitamin D3) 125 mcg (5,000 unit) capsule 125 mcg PO DAILY multivitamin [Daily Multi-Vitamin] Tablet 1 tab PO DAILY methylsulfonylmethane 1,000 mg capsule 2,000 mg PO DAILY magnesium 200 mg tablet 400 mg PO DAILY vitamin E 268 mg (400 unit) capsule 268 mg PO DAILY omega [id number] oil [Fish Oil] 1,000 (120-180) mg capsule 1 cap PO DAILY zinc acetate 50 mg (zinc) capsule 50 mg PO DAILY Citrucel 500 mg tablet 1,000 mg PO DAILY Discontinued spironolactone 25 mg tablet 25 mg PO DAILY Discharge Orders: Discharge Order (Routine); Ordered 04/27/25 Ordered By: Leonel Gimenez Patient Education: Spironolactone (By mouth), Amlodipine (By mouth), Grief and Loss (DC), Chronic Hypertension (DC), Hypertensive Crisis (DC) Additional Instructions: 1. follow-up with primary day care worker in 3-7 days 2. Return to clinic or hospital sooner if needed Activity Level: Activity as Tolerated Discharge Diet: 2 gm Sodium Follow Up Appointments: Jone Calvert MD [Primary Care Provider, [facility]] - 05/08/25 9:40 am Forms: Miira Info Instructions
== END 2025-04-27 17:03 | disposition home or self-care (01) | DRG 72 ==
LOC: ED 19:08 → MEDSURG 19:51
PROVIDERS: Admitting Provider Family Medicine; Emergency Provider Emergency Medicine; PCP Family Medicine; Visit Provider Family Medicine
DX: I67.4 Hypertensive encephalopathy (principal); I16.0 Hypertensive urgency; I10 Essential (primary) hypertension; R79.89 Other specified abnormal findings of blood chemistry; E11.9 Type 2 diabetes mellitus without complications; E78.5 Hyperlipidemia, unspecified; K21.9 Gastro-esophageal reflux disease without esophagitis; E03.9 Hypothyroidism, unspecified; I35.0 Nonrheumatic aortic (valve) stenosis; H40.9 Unspecified glaucoma; Z79.899 Other long term (current) drug therapy
CPT/HCPCS: 36415; 70450; 70496; 70498; 70551; 71046; 80048; 80053; 81001; 82077; 82803; 83605; 83735; 83880; 84443; 84484; 85025; 85027; 85610; 93005; 93308; 93321; 93325; 97161; 97165; 99285; A9270; J1650; J2060; Q9967